=== PATIENT | male | born 1935 | race Caucasian/White ===

== ENCOUNTER → 2017-01-06 | Outpatient (CLI) | payer OTHER ==
[~2017-01-06] MED LIST: ASPI81CH49 OR; SIMV-8 OR
[2017-01-06 14:42] LABS: Basophils # (auto) 0 uL; Basophils % (auto) 0.6 % (0.0-2.0); Eosinophils # (auto) 0.1 uL; Eosinophils % (auto) 1.2 % (0.0-7.0); Hematocrit 43.8 % (41.0-53.0); Hemoglobin 13.7 g/dL (13.5-17.5); Lymphocytes # (auto) 1.8 uL; Lymphocytes % (auto) 24.6 % (10.0-50.0); Mean Corpuscular Hemoglobin 28.5 pg (28.0-32.0); Mean Corpuscular Hgb Conc. 31.3 g/dL (32.0-36.0); Mean Platelet Volume 7.5 fL (7.4-10.4); Monocytes # (auto) 0.5 uL; Monocytes % (auto) 6.6 % (0.0-12.0); Neutrophils # (auto) 4.9 uL; Platelet Count (auto) 309 10^3/uL (140-450); Red Cell Distribution Width 14.6 % (11.6-16.0); White Blood Cell 7.3 10^3/uL (4.4-10.8)
[2017-01-06 15:49] LABS: Albumin 3.9 g/dL (3.4-5.0); BUN/Creatinine Ratio 17.7; Bilirubin, Total 0.5 mg/dL (0.2-1.0); Calcium 9.5 mg/dL (8.5-10.1); Potassium 3.9 mmol/L (3.5-5.1); Total Protein 7.3 g/dL (6.4-8.2); Uric Acid 5.4 mg/dL (3.5-7.2)
== END | disposition home or self-care (01) ==
LOC: LAB 12:43
PROVIDERS: ATTEND Internal Medicine
DX: R58 Hemorrhage, not elsewhere classified (principal); N18.3 Chronic kidney disease, stage 3 (moderate)
CPT/HCPCS: 36415; 80053; 82607; 83970; 84402; 84403; 84550; 85025

== ENCOUNTER → 2017-08-13 | Outpatient (CLI) | payer OTHER ==
[2017-08-13 12:20] LABS: Urine Bilirubin Negative (Negative); Urine Blood Negative /uL (Negative); Urine Color Yellow (Yellow); Urine Glucose Normal (Normal); Urine Ketone Negative (Negative); Urine Nitrite Negative (Negative); Urine RBC <1 /hpf (0 - 3); Urine Urobilinogen Normal (Negative); Urine pH 6.5 (5.0-8.0)
[2017-08-13 12:32] LABS: Albumin 3.9 g/dL (3.4-5.0); BUN/Creatinine Ratio 13.2; Bilirubin, Total 0.6 mg/dL (0.2-1.0); Calcium 9.4 mg/dL (8.5-10.1); Potassium 4.4 mmol/L (3.5-5.1); Total Protein 7.3 g/dL (6.4-8.2)
== END | disposition home or self-care (01) ==
LOC: LAB 11:14
PROVIDERS: ATTEND Internal Medicine
DX: I10 Essential (primary) hypertension (principal); G62.9 Polyneuropathy, unspecified
CPT/HCPCS: 36415; 80053; 80061; 81001; 82043; 82607; 84153; 84403; 84439; 84443

== ENCOUNTER 2018-01-20 06:18 | Day surgery (SDC) | payer OTHER ==
[2018-01-07 10:41] LABS: Urine WBC None Seen /hpf (0 - 3)
[2018-01-07 10:57] LABS: Urine Bacteria NONE SEEN /hpf (None Seen); Urine Blood Negative /uL (Negative); Urine Specific Gravity 1.012 (1.001-1.035)
[2018-01-07 11:07] LABS: Basophils # (auto) 0.1 uL; Basophils % (auto) 0.7 % (0.0-2.0); Eosinophils # (auto) 0.1 uL; Hematocrit 42.2 % (41.0-53.0); Hemoglobin 14.2 g/dL (13.5-17.5); Lymphocytes % (auto) 27.2 % (10.0-50.0); Mean Corpuscular Hemoglobin 29.8 pg (28.0-32.0); Mean Corpuscular Hgb Conc. 33.7 g/dL (32.0-36.0); Mean Corpuscular Volume 88.5 fL (80.0-100.0); Monocytes # (auto) 0.5 uL; Monocytes % (auto) 7.3 % (0.0-12.0); Neutrophils # (auto) 4.5 uL; Neutrophils % (auto) 62.8 % (37.0-80.0); Platelet Count (auto) 209 10^3/uL (140-450); Red Blood Cells 4.77 10^6/uL (4.5-5.90); Red Cell Distribution Width 13.5 % (11.8-14.3); White Blood Cell 7.2 10^3/uL (4.4-10.8)
[2018-01-07 11:09] LABS: Albumin 3.7 g/dL (3.4-5.0); BUN/Creatinine Ratio 18.2; INR 0.98 (0.9-1.15); Potassium 4.1 mmol/L (3.5-5.1); Prothrombin Time 10.7 sec (9.37-12.3)
[2018-01-07 11:12] LABS: Bilirubin, Total 0.6 mg/dL (0.2-1.0); Total Protein 7.1 g/dL (6.4-8.2)
[~2018-01-20] VITALS: Ht 188 cm; Wt 86.2 kg
[~2018-01-20 06:18] MED LIST changes: +OMEP20CA74 PO; +TAM04C PO; +TEMA30CA PO
[2018-01-20] MEDS ORDERED: ceFAZolin 1GM/50ML 50 ML IV ONE (06:29)
[2018-01-20 07:29] LABS: Basophils # (auto) 0.1 uL; Basophils % (auto) 0.9 % (0.0-2.0); Eosinophils # (auto) 0.2 uL; Eosinophils % (auto) 3.2 % (0.0-7.0); Hematocrit 41.8 % (41.0-53.0); Lymphocytes # (auto) 1.5 uL; Mean Corpuscular Hgb Conc. 33.5 g/dL (32.0-36.0); Mean Corpuscular Volume 89.6 fL (80.0-100.0); Monocytes # (auto) 0.9 uL; Monocytes % (auto) 13.1 % (0.0-12.0); Neutrophils # (auto) 4.3 uL; Neutrophils % (auto) 60.8 % (37.0-80.0); Nucleated Red Blood Cells % 0.1 %; Platelet Count (auto) 199 10^3/uL (140-450); Red Blood Cells 4.67 10^6/uL (4.5-5.90); Red Cell Distribution Width 14.1 % (11.8-14.3)
[2018-01-20 07:39] LABS: BUN/Creatinine Ratio 15.8; Potassium 4.1 mmol/L (3.5-5.1)
[2018-01-20 07:43] LABS: INR 0.97 (0.9-1.15); Partial Thromboplastin Time 42.9 sec (22.64-33.71); Prothrombin Time 10.6 sec (9.37-12.3)
[2018-01-20] MEDS ORDERED: MIDAZOLAM HCL 1MG/1ML-2 ML VIAL ONE (08:00)
[2018-01-20] MEDS ORDERED: PROPOFOL 10 MG/ML 20 ML IV ONE (08:00)
[2018-01-20] MEDS ORDERED: fentaNYL CITRATE 100 MCG/2 ML VL ONE (08:00)
[2018-01-20] MEDS ORDERED: ONDANSETRON HCL 4 MG/2 ML VIAL ONE (08:00)
[2018-01-20] MEDS ORDERED: SODIUM CHLORIDE LOCK 10 ML ONE (08:00)
[2018-01-20] MEDS ORDERED: BUPIVACAINE 0.75% INJ 10ML MPV SDV IJ ONE (08:15)
[2018-01-20] MEDS ORDERED: methylPREDNISolone ACETATE 80 MG/ML VL ONE (08:16)
[2018-01-20] MEDS ORDERED: METOCLOPRAMIDE HCL 5MG/ml INJ 2ml VIAL IV ONE (08:30)
[2018-01-20] MEDS ORDERED: MORPHINE SULFATE 4 MG/ML SYR/VIAL IV ONE (10:00)
[2018-01-20 10:02] VITALS: BP 135/65
== END 2018-01-20 10:02 | disposition home or self-care (01) ==
LOC: SUR 06:18
PROVIDERS: ATTEND Podiatrist Foot & Ankle Surgery
DX: M72.2 Plantar fascial fibromatosis (principal); E66.9 Obesity, unspecified; Z90.49 Acquired absence of other specified parts of digestive tract; N18.3 Chronic kidney disease, stage 3 (moderate)
CPT/HCPCS: 28060; 36415; 80048; 80053; 81001; 85025; 85610; 85730; 88305; J0690; J2250; J2405; J2704; J3010; J3490; V2790

== ENCOUNTER → 2018-04-27 | Outpatient (CLI) | payer OTHER | END | disposition home or self-care (01) | LOC: LAB 10:00 | PROVIDERS: ATTEND Physician Assistant | DX: D23.9 Other benign neoplasm of skin, unspecified (principal) ==

== ENCOUNTER → 2018-05-04 | Outpatient (CLI) | payer OTHER ==
[2018-05-04 15:54] LABS: Albumin 3.6 g/dL (3.4-5.0); BUN/Creatinine Ratio 13.2; Bilirubin, Total 0.4 mg/dL (0.2-1.0); Calcium 8.8 mg/dL (8.5-10.1); Potassium 4.6 mmol/L (3.5-5.1); Total Protein 6.7 g/dL (6.4-8.2); Uric Acid 4.4 mg/dL (3.5-7.2)
== END | disposition home or self-care (01) ==
LOC: LAB 15:13
PROVIDERS: ATTEND Internal Medicine
DX: I12.9 Hypertensive chronic kidney disease with stage 1 through stage 4 chronic kidney disease, or unspecified chronic kidney disease (principal); N18.4 Chronic kidney disease, stage 4 (severe)
CPT/HCPCS: 36415; 80053; 84439; 84443; 84550

== ENCOUNTER → 2018-10-05 | Outpatient (CLI) | payer OTHER ==
[2018-10-05 11:19] LABS: Urine Bacteria NONE SEEN /hpf (None Seen); Urine Blood Negative /uL (Negative); Urine Specific Gravity 1.013 (1.001-1.035); Urine WBC <1 /hpf (0 - 3)
[2018-10-05 11:23] LABS: Basophils # (auto) 0.1 uL; Basophils % (auto) 1.1 % (0.0-2.0); Eosinophils # (auto) 0.1 uL; Eosinophils % (auto) 2.5 % (0.0-7.0); Hematocrit 42.4 % (41.0-53.0); Hemoglobin 13.8 g/dL (13.5-17.5); Lymphocytes # (auto) 1.5 uL; Lymphocytes % (auto) 28.6 % (10.0-50.0); Mean Corpuscular Hemoglobin 29.8 pg (28.0-32.0); Mean Corpuscular Hgb Conc. 32.6 g/dL (32.0-36.0); Mean Corpuscular Volume 91.3 fL (80.0-100.0); Monocytes # (auto) 0.3 uL; Neutrophils # (auto) 3.3 uL; Neutrophils % (auto) 61.8 % (37.0-80.0); Platelet Count (auto) 225 10^3/uL (140-450); Red Blood Cells 4.64 10^6/uL (4.5-5.90); Red Cell Distribution Width 14.5 % (11.8-14.3); White Blood Cell 5.3 10^3/uL (4.4-10.8)
[2018-10-05 11:52] LABS: Albumin 3.7 g/dL (3.4-5.0); BUN/Creatinine Ratio 11.5; Calcium 9.3 mg/dL (8.5-10.1); Potassium 4.4 mmol/L (3.5-5.1); Uric Acid 4.3 mg/dL (3.5-7.2)
[2018-10-05 11:58] LABS: Bilirubin, Total 0.5 mg/dL (0.2-1.0); Total Protein 7.1 g/dL (6.4-8.2)
[2018-10-05 12:04] LABS: Free T4 (Free Thyroxine) 0.99 ng/dL (0.89-1.76)
[2018-10-05 12:05] LABS: Prostate Specific Antigen 2.48 ng/mL (0.0-4.0)
[2018-10-06 07:06] LABS: Immunoglobulin G, Serum 799 mg/dL (700-1600)
[2018-10-07 10:17] LABS: Hepatitis B Surface Antigen Negative (Negative); Hepatitis C Antibody Negative (Negative)
== END | disposition home or self-care (01) ==
LOC: LAB 10:28
PROVIDERS: ATTEND Internal Medicine
DX: I12.9 Hypertensive chronic kidney disease with stage 1 through stage 4 chronic kidney disease, or unspecified chronic kidney disease (principal); N18.3 Chronic kidney disease, stage 3 (moderate); N40.0 Benign prostatic hyperplasia without lower urinary tract symptoms; G62.9 Polyneuropathy, unspecified
CPT/HCPCS: 36415; 80053; 80061; 81001; 82043; 82607; 82784; 83970; 84153; 84439; 84443; 84550; 85025; 85652; 86334; 86704; 86705; 86803; 87340

== ENCOUNTER → 2018-10-27 | Outpatient (CLI) | payer OTHER | END | disposition home or self-care (01) | LOC: LAB 15:24 | PROVIDERS: ATTEND Internal Medicine | DX: G60.9 Hereditary and idiopathic neuropathy, unspecified (principal); I10 Essential (primary) hypertension | CPT/HCPCS: 36415; 86706 ==

== ENCOUNTER → 2019-02-07 | Outpatient (CLI) | payer OTHER ==
[2019-02-07 16:12] LABS: Basophils # (auto) 0.1 uL; Basophils % (auto) 0.7 % (0.0-2.0); Eosinophils # (auto) 0.1 uL; Eosinophils % (auto) 1.1 % (0.0-7.0); Hematocrit 40.4 % (41.0-53.0); Hemoglobin 13.6 g/dL (13.5-17.5); Lymphocytes # (auto) 1.2 uL; Lymphocytes % (auto) 15.5 % (10.0-50.0); Mean Corpuscular Hemoglobin 30.9 pg (28.0-32.0); Mean Corpuscular Hgb Conc. 33.7 g/dL (32.0-36.0); Mean Corpuscular Volume 91.5 fL (80.0-100.0); Monocytes # (auto) 0.4 uL; Monocytes % (auto) 5.5 % (0.0-12.0); Neutrophils % (auto) 77.2 % (37.0-80.0); Nucleated Red Blood Cells % 0.1 %; Platelet Count (auto) 200 10^3/uL (140-450); Red Blood Cells 4.42 10^6/uL (4.5-5.90); Red Cell Distribution Width 13.8 % (11.8-14.3); White Blood Cell 7.7 10^3/uL (4.4-10.8)
[2019-02-07 16:20] LABS: Potassium 4.3 mmol/L (3.5-5.1)
[2019-02-07 16:35] LABS: Albumin 3.8 g/dL (3.4-5.0); BUN/Creatinine Ratio 17.6; Bilirubin, Total 0.4 mg/dL (0.2-1.0); Calcium 9.2 mg/dL (8.5-10.1)
== END | disposition home or self-care (01) ==
LOC: LAB 15:22
PROVIDERS: ATTEND Internal Medicine
DX: K21.9 Gastro-esophageal reflux disease without esophagitis (principal); I12.9 Hypertensive chronic kidney disease with stage 1 through stage 4 chronic kidney disease, or unspecified chronic kidney disease; N18.3 Chronic kidney disease, stage 3 (moderate)
CPT/HCPCS: 36415; 80053; 82150; 83690; 85025

== ENCOUNTER → 2019-04-05 | Outpatient (CLI) | payer OTHER ==
[2019-04-05 12:55] LABS: Albumin 3.8 g/dL (3.4-5.0); Bilirubin, Direct 0.2 mg/dL (0-0.2); Bilirubin, Total 0.7 mg/dL (0.2-1.0); Total Protein 7.1 g/dL (6.4-8.2)
== END | disposition home or self-care (01) ==
LOC: LAB 12:14
PROVIDERS: ATTEND Podiatrist
DX: K76.9 Liver disease, unspecified (principal)
CPT/HCPCS: 36415; 80076

== ENCOUNTER → 2019-05-19 | Outpatient (CLI) | payer OTHER ==
[2019-05-19 14:26] LABS: Albumin 3.8 g/dL (3.4-5.0); Bilirubin, Direct 0.2 mg/dL (0-0.2)
[2019-05-19 14:28] LABS: Bilirubin, Total 0.5 mg/dL (0.2-1.0); Total Protein 6.8 g/dL (6.4-8.2)
== END | disposition home or self-care (01) ==
LOC: LAB 13:47
PROVIDERS: ATTEND Podiatrist
DX: D35.1 Benign neoplasm of parathyroid gland (principal)
CPT/HCPCS: 36415; 80076

== ENCOUNTER → 2019-08-03 | Outpatient (CLI) | payer OTHER ==
[2019-08-03 14:37] LABS: Calcium 9.4 mg/dL (8.5-10.1); Potassium 4.7 mmol/L (3.5-5.1)
[2019-08-03 14:40] LABS: Albumin 4.2 g/dL (3.4-5.0); BUN/Creatinine Ratio 12.4
[2019-08-03 14:42] LABS: Bilirubin, Total 0.6 mg/dL (0.2-1.0); Total Protein 7.5 g/dL (6.4-8.2)
[2019-08-03 15:35] LABS: Urine Bacteria NONE SEEN /hpf (None Seen); Urine Blood Negative /uL (Negative); Urine Hyaline Cast FEW /lpf (0 - 2); Urine Mucus FEW (None Seen); Urine Specific Gravity 1.013 (1.001-1.035); Urine WBC 1 /hpf (0 - 3)
[2019-08-03 17:29] LABS: Basophils # (auto) 0.1 uL; Basophils % (auto) 0.8 % (0.0-2.0); Eosinophils # (auto) 0.1 uL; Eosinophils % (auto) 1.5 % (0.0-7.0); Hematocrit 48.9 % (41.0-53.0); Hemoglobin 16.3 g/dL (13.5-17.5); Lymphocytes # (auto) 2.2 uL; Lymphocytes % (auto) 26.3 % (10.0-50.0); Mean Corpuscular Hemoglobin 30.2 pg (28.0-32.0); Mean Corpuscular Hgb Conc. 33.4 g/dL (32.0-36.0); Mean Corpuscular Volume 90.5 fL (80.0-100.0); Monocytes # (auto) 0.4 uL; Monocytes % (auto) 5.2 % (0.0-12.0); Neutrophils # (auto) 5.6 uL; Neutrophils % (auto) 66.2 % (37.0-80.0); Nucleated Red Blood Cells % 0.1 %; Platelet Count (auto) 213 10^3/uL (140-450); Red Blood Cells 5.41 10^6/uL (4.5-5.90); Red Cell Distribution Width 13.9 % (11.8-14.3); White Blood Cell 8.5 10^3/uL (4.4-10.8)
== END | disposition home or self-care (01) ==
LOC: LAB 13:38
PROVIDERS: ATTEND Internal Medicine
DX: N40.0 Benign prostatic hyperplasia without lower urinary tract symptoms (principal); I10 Essential (primary) hypertension; I48.0 Paroxysmal atrial fibrillation
CPT/HCPCS: 36415; 80053; 80061; 81001; 82043; 84439; 84443; 85025; 85652

== ENCOUNTER 2019-10-13 15:06 | Inpatient (IN) | payer OTHER ==
[~2019-10-13] VITALS: Ht 188 cm; Wt 86.8 kg
[2019-10-13] MEDS ORDERED: SODIUM CHLORIDE 0.9% 500 ML IV ONE (15:22)
[2019-10-13] MEDS ORDERED: ADENOSINE 6 MG/2 ML INJ IV ONE (15:30)
[2019-10-13] MEDS ORDERED: METOPROLOL TARTRATE 1MG/1ML-5ML VIAL IV ONE ×2 (16:00→16:01)
[2019-10-13] MEDS ORDERED: MORPHINE SULFATE 4 MG/ML SYR/VIAL IV PRN (16:15)
[2019-10-13] MEDS ORDERED: ONDANSETRON HCL 4 MG/2 ML VIAL IV PRN (16:15)
[2019-10-13] MEDS ORDERED: traMADol HCL 50 MG TAB PO PRN (16:15)
[2019-10-13] MEDS ORDERED: NITROGLYCERIN 0.4 MG SL TAB SL PRN (16:15)
[2019-10-13] MEDS ORDERED: ACETAMINOPHEN 500 MG TAB PO PRN (16:15)
[2019-10-13] MEDS ORDERED: MORPHINE SULF INJ 2 MG/ML SYRINGE 1ML IV PRN (16:15)
[2019-10-13 16:16] LABS: Alanine Aminotransferase 19 U/L (16-61); Albumin 3.6 g/dL (3.4-5.0); Anion Gap 7 (5-15); Aspartate Aminotransferase 22 U/L (15-37); BUN/Creatinine Ratio 14.9; Blood Urea Nitrogen 25 mg/dL (7-18); Calcium 8.5 mg/dL (8.5-10.1); Carbon Dioxide 22 mmol/L (21-32); Chloride 108 mmol/L (98-107); GFR African American 50 mL/min; GFR Non-African American 42 mL/min; Glucose 114 mg/dL (74-106); Magnesium 2.3 mg/dL (1.6-2.6); Potassium 4.2 mmol/L (3.5-5.1); Sodium 137 mmol/L (136-145)
[2019-10-13 16:21] LABS: Alkaline Phosphatase 55 U/L (45-117); Bilirubin, Total 0.6 mg/dL (0.2-1.0); Total Protein 6.8 g/dL (6.4-8.2)
[2019-10-13] MEDS ORDERED: METOPROLOL SUCCINATE XL 50 MG TAB PO ONE ×2 (16:27→16:30)
[2019-10-13] MEDS: SODIUM CHLORIDE 0.9% 1,000 ML IV SCH (16:33)
[2019-10-13 16:37] LABS: Basophils # (auto) 0.1 uL; Basophils % (auto) 0.7 % (0.0-2.0); Eosinophils # (auto) 0.1 uL; Eosinophils % (auto) 1.3 % (0.0-7.0); Hematocrit 41.4 % (41.0-53.0); Lymphocytes # (auto) 1.6 uL; Lymphocytes % (auto) 23.4 % (10.0-50.0); Mean Corpuscular Hemoglobin 30.6 pg (28.0-32.0); Mean Corpuscular Hgb Conc. 33.7 g/dL (32.0-36.0); Mean Corpuscular Volume 90.7 fL (80.0-100.0); Monocytes # (auto) 0.6 uL; Monocytes % (auto) 8.5 % (0.0-12.0); Neutrophils # (auto) 4.5 uL; Neutrophils % (auto) 66.1 % (37.0-80.0); Nucleated Red Blood Cells % 0.2 %; Platelet Count (auto) 175 10^3/uL (140-450); Red Blood Cells 4.57 10^6/uL (4.5-5.90); Red Cell Distribution Width 13.7 % (11.8-14.3); White Blood Cell 6.9 10^3/uL (4.4-10.8)
[2019-10-13] MEDS: APIXABAN 2.5 MG TAB PO SCH (21:58)
[2019-10-13] MEDS ORDERED: TEMAZEPAM 15 MG CAP PO SCH (22:00)
[2019-10-13] MEDS: METOPROLOL TARTRATE 25 MG TAB PO SCH (22:00)
[2019-10-14] VITALS (8 sets, daily range): BP systolic 97–143; BP diastolic 49–75
--- NOTE | 2019-10-14 00:10 | NUR ---
Telemetry admit from ER LALA SALGADO admitted to Telemetry unit after SBAR received. Patient oriented to Jade Rose, primary RN, unit, room, bed, and unit policies regarding patient care and visiting hours. Patient now on continuous telemetry monitoring, tele box # 69 and telemetry reading on arrival to unit is 70. Patient placed on bedside oxygen, weighed by bedscale and encouraged to call if they need something. All questions and concerns addressed, patient verbalized understanding. Note:
[2019-10-14] MEDS: SODIUM CHLORIDE 0.9% 1,000 ML IV SCH (05:42)
[2019-10-14] MEDS ORDERED: traMADol HCL 50 MG TAB PO PRN (07:15)
--- NOTE | 2019-10-14 08:00 | NUR ---
Opening Shift Note Assumed care of patient AOx4. No S/S of distress/SOB or pain noted/reported. Bed in low position, locked, call light within reach. Patient instructed on POC and to call for assist PRN, will continue to monitor for changes Q1hr and PRN. Signed: 10/14/19 at 1600 by GLORIA BYRNE SN <Co-Signature Required> Co-Signed: 10/14/19 at 1600 by Bobbi Dangelo RN
[2019-10-14] MEDS ORDERED: ADENOSINE 73 MG in GIVE UN-DILUTED 0 ML IV STA (08:20)
[2019-10-14] MEDS ORDERED: ASPirin 81 mg TAB PO SCH (10:00)
[2019-10-14] MEDS ORDERED: PANTOPRAZOLE 40 MG TAB PO SCH (10:00)
[2019-10-14] MEDS ORDERED: ATORVASTATIN 20 MG TAB PO SCH (10:00)
[2019-10-14] MEDS: METOPROLOL TARTRATE 25 MG TAB PO SCH (10:00)
[2019-10-14] MEDS ORDERED: INFLUENZA QUAD 2019-2020 0.5ml SYRG IM ONE ×2 (10:00→19:35)
[2019-10-14] MEDS: APIXABAN 2.5 MG TAB PO SCH (12:14)
[2019-10-14] MEDS ORDERED: LIDOCAINE HCL 100 MG/5ML (2%) SYRG INJ IV ONE (12:54)
[2019-10-14 15:44] LABS: BUN/Creatinine Ratio 13.4; Calcium 8.7 mg/dL (8.5-10.1); Potassium 4.7 mmol/L (3.5-5.1)
[2019-10-14] MEDS ORDERED: METO25TA36 PO (17:33)
[2019-10-14] MEDS ORDERED: TAMSULOSIN HYDROCHLORIDE 0.4 MG CAP PO SCH (18:00)
--- NOTE | 2019-10-14 18:39 | NUR ---
PATIENT IS REQUESTING INFLUENZA VACCINE. CALLED PHARMACY TO SEND IT UP TO FLOOR VIA BULLET SYSTEM. WAITING FOR VACCINE.
--- NOTE | 2019-10-14 19:30 | NUR ---
Opening Shift Note Report received from day RN that patient is discharged, just waiting for flu vaccine. Assumed care of patient, awake and alert. No S/S of distress/SOB or pain. Instructed on POC and to call for assist PRN, will continue to monitor for changes Q1hr and PRN.
--- NOTE | 2019-10-14 19:35 | NUR ---
Called pharmacy to follow-up for flu vaccine. Per pharmacist, it will be refreshed so it can be pulled from the pyxis. Communication relayed to patient. Care continued.
--- NOTE | 2019-10-14 19:55 | NUR ---
Discharge instructions given as ordered by claudio Boo RN. Encourage to follow up with PMD as instructed. All questions and concerns addressed. Patient verbalized understanding. Medication reconciliation form completed and copy given to patient. No home medications held in Pharmacy, influenza vaccine given. IV removed with catheter intact, pressure dressing applied, by claudio Boo RN, patient voiding freely. Telemetry unit returned to ICU by claudio Boo RN. Patient taken to vehicle via wheelchair with all personal belongings, accompanied by staff. No distress noted at time of departure.
[2019-10-14] MEDS ORDERED: TEMAZEPAM 15 MG CAP PO SCH (22:00)
== END 2019-10-14 19:55 | disposition home or self-care (01) | DRG 308 ==
LOC: ER 15:10 → TELE 15:11 → TELE-WESTW 23:39
PROVIDERS: ADMIT Internal Medicine; ATTEND Internal Medicine
DX: I48.0 Paroxysmal atrial fibrillation (principal); I50.33 Acute on chronic diastolic (congestive) heart failure; G62.9 Polyneuropathy, unspecified; I47.1 Supraventricular tachycardia; H26.9 Unspecified cataract; I48.92 Unspecified atrial flutter; E78.5 Hyperlipidemia, unspecified; I11.0 Hypertensive heart disease with heart failure; Z86.73 Personal history of transient ischemic attack (TIA), and cerebral infarction without residual deficits; Z87.891 Personal history of nicotine dependence
CPT/HCPCS: 36415; 71045; 78452; 80048; 80053; 82550; 83735; 83880; 84443; 84484; 85025; 85379; 93005; 93017; 93306; 99291; G0378; J0153

== ENCOUNTER → 2019-11-10 | Outpatient (CLI) | payer OTHER ==
[~2019-11-10] MED LIST changes: -ASPI81CH49 OR; +METO25TA36 PO; -OMEP20CA74 PO
[2019-11-10 14:35] LABS: Ferritin 92.5 ng/mL (10-322)
[2019-11-10 14:36] LABS: Folate (Folic Acid) 16.64 ng/mL (5.38-24)
== END | disposition home or self-care (01) ==
LOC: LAB 13:05
PROVIDERS: ATTEND Psychiatry & Neurology Neurology
DX: E61.1 Iron deficiency (principal); G62.9 Polyneuropathy, unspecified
CPT/HCPCS: 36415; 82728; 82746; 82951; 83540; 83550; 84155; 84165

== ENCOUNTER → 2020-02-06 | Outpatient (CLI) | payer OTHER ==
[2020-02-06 16:08] LABS: Calcium 9.3 mg/dL (8.5-10.1); Potassium 4.7 mmol/L (3.5-5.1)
[2020-02-06 16:10] LABS: BUN/Creatinine Ratio 12.7
== END | disposition home or self-care (01) ==
LOC: LAB 15:33
PROVIDERS: ATTEND Internal Medicine
DX: I48.0 Paroxysmal atrial fibrillation (principal); I10 Essential (primary) hypertension
CPT/HCPCS: 36415; 80048

== ENCOUNTER → 2020-05-22 | Outpatient (CLI) | payer OTHER ==
[2020-05-22 13:13] LABS: Basophils # (auto) 0.1 10 ^3/uL (0-0.2); Basophils % (auto) 1.1 % (0.0-2.0); Eosinophils # (auto) 0.1 10 ^3/uL (0-0.8); Eosinophils % (auto) 1.7 % (0.0-7.0); Hematocrit 51.5 % (41.0-53.0); Lymphocytes # (auto) 1.8 10 ^3/uL (0.4-5.4); Lymphocytes % (auto) 21.1 % (10.0-50.0); Mean Corpuscular Hemoglobin 29.9 pg (28.0-32.0); Mean Corpuscular Hgb Conc. 33.1 g/dL (32.0-36.0); Mean Corpuscular Volume 90.5 fL (80.0-100.0); Monocytes # (auto) 0.6 10 ^3/uL (0-1.3); Monocytes % (auto) 7.7 % (0.0-12.0); Neutrophils # (auto) 5.7 10 ^3/uL (1.6-8.6); Neutrophils % (auto) 68.4 % (37.0-80.0); Nucleated Red Blood Cells % 0.2 %; Platelet Count (auto) 213 10^3/uL (140-450); Red Blood Cells 5.68 10^6/uL (4.5-5.90); Red Cell Distribution Width 14.2 % (11.8-14.3); White Blood Cell 8.4 10^3/uL (4.4-10.8)
[2020-05-22 13:40] LABS: Albumin 4.3 g/dL (3.4-5.0); Calcium 10.1 mg/dL (8.5-10.1); Magnesium 2.7 mg/dL (1.6-2.6); Potassium 4.7 mmol/L (3.5-5.1)
[2020-05-22 13:44] LABS: BUN/Creatinine Ratio 19.9; Bilirubin, Total 0.6 mg/dL (0.2-1.0); Total Protein 8.1 g/dL (6.4-8.2)
== END | disposition home or self-care (01) ==
LOC: LAB 12:33
PROVIDERS: ATTEND Internal Medicine
DX: I48.91 Unspecified atrial fibrillation (principal)
CPT/HCPCS: 36415; 80053; 83735; 83880; 85025

== ENCOUNTER → 2020-07-23 | Outpatient (CLI) | payer OTHER | END | disposition home or self-care (01) | LOC: Rad HDHVI 15:12 | PROVIDERS: ATTEND Internal Medicine Cardiovascular Disease | DX: R00.2 Palpitations (principal); I10 Essential (primary) hypertension; R07.89 Other chest pain | CPT/HCPCS: 93306 ==

== ENCOUNTER → 2020-07-31 | Outpatient (CLI) | payer OTHER ==
[2020-07-31 16:36] LABS: Basophils # (auto) 0.1 10 ^3/uL (0-0.2); Basophils % (auto) 1.1 % (0.0-2.0); Eosinophils # (auto) 0.2 10 ^3/uL (0-0.8); Eosinophils % (auto) 3.4 % (0.0-7.0); Hematocrit 43.4 % (41.0-53.0); Hemoglobin 14.1 g/dL (13.5-17.5); Lymphocytes # (auto) 1.6 10 ^3/uL (0.4-5.4); Lymphocytes % (auto) 23.2 % (10.0-50.0); Mean Corpuscular Hemoglobin 29.2 pg (28.0-32.0); Mean Corpuscular Hgb Conc. 32.5 g/dL (32.0-36.0); Mean Corpuscular Volume 89.7 fL (80.0-100.0); Monocytes # (auto) 0.6 10 ^3/uL (0-1.3); Monocytes % (auto) 8.7 % (0.0-12.0); Neutrophils # (auto) 4.5 10 ^3/uL (1.6-8.6); Neutrophils % (auto) 63.6 % (37.0-80.0); Platelet Count (auto) 156 10^3/uL (140-450); Red Blood Cells 4.84 10^6/uL (4.5-5.90); Red Cell Distribution Width 13.9 % (11.8-14.3)
[2020-07-31 16:54] LABS: Albumin 3.5 g/dL (3.4-5.0); BUN/Creatinine Ratio 18.5; Potassium 4.7 mmol/L (3.5-5.1)
[2020-07-31 16:57] LABS: Bilirubin, Total 0.6 mg/dL (0.2-1.0)
== END | disposition home or self-care (01) ==
LOC: LAB 16:22
PROVIDERS: ATTEND Internal Medicine
DX: I10 Essential (primary) hypertension (principal); I50.32 Chronic diastolic (congestive) heart failure
CPT/HCPCS: 36415; 80053; 83880; 84439; 84443; 85025; 85379; 85652

== ENCOUNTER → 2020-08-30 | Outpatient (CLI) | payer OTHER ==
[~2020-08-30] VITALS: Ht 188 cm; Wt 93.0 kg
[~2020-08-30] MED LIST changes: +ADENOSINE 78 MG in GIVE UN-DILUTED 0 ML IV ONE; +ADENOSINE 90 MG/30 ML INJ IV ONE
== END | disposition home or self-care (01) ==
LOC: Rad HDHVI 13:02
PROVIDERS: ATTEND Internal Medicine Cardiovascular Disease
DX: I10 Essential (primary) hypertension (principal); E78.00 Pure hypercholesterolemia, unspecified; I48.0 Paroxysmal atrial fibrillation; R06.02 Shortness of breath; I63.9 Cerebral infarction, unspecified; I49.5 Sick sinus syndrome; R00.2 Palpitations; Z82.49 Family history of ischemic heart disease and other diseases of the circulatory system
CPT/HCPCS: 78452; 93005; 96374; 96375; A9500; J0153

== ENCOUNTER → 2020-10-15 | Outpatient (CLI) | payer OTHER ==
[~2020-10-15] MED LIST changes: -ADENOSINE 78 MG in GIVE UN-DILUTED 0 ML IV ONE; -ADENOSINE 90 MG/30 ML INJ IV ONE; +AMIT10TA6 PO; +LORA0.5T20 PO; +OMEP20TA PO; +PRAM0.12 PO; +SIMV-8 PO; +WARF4TAB33 PO
[2020-10-15 08:42] VITALS: BP 136/53
--- NOTE | 2020-10-15 08:42 | NUR ---
PT. TO CLINIC AFTER PRE OP LABS AND CXR FOR EKG AND EDUCATION. PT. ASYMPTOMATIC WITH LOW PULSE BUT EKG SHOWS AFIB WITH CONTROLLED VENT. RESPONSE AT 84.
--- NOTE | 2020-10-15 09:02 | NUR ---
Pre-Op Discharge Summary: See e-MAR for any medications given for this visit. Pre-op orders received and carried out per MD of EKG, LABS and chest xrays. Patient given a copy of EKG with instructions to go to [facility] out patient for further follow up care.
[2020-10-15 09:03] VITALS: BP 132/60
[2020-10-15 12:35] LABS: Basophils # (auto) 0.1 10 ^3/uL (0-0.2); Eosinophils # (auto) 0.1 10 ^3/uL (0-0.8); Eosinophils % (auto) 1.7 % (0.0-7.0); Hematocrit 46.9 % (41.0-53.0); Hemoglobin 16.1 g/dL (13.5-17.5); Lymphocytes # (auto) 1.7 10 ^3/uL (0.4-5.4); Lymphocytes % (auto) 20.5 % (10.0-50.0); Mean Corpuscular Hemoglobin 30.4 pg (28.0-32.0); Mean Corpuscular Hgb Conc. 34.3 g/dL (32.0-36.0); Mean Corpuscular Volume 88.6 fL (80.0-100.0); Monocytes # (auto) 0.5 10 ^3/uL (0-1.3); Monocytes % (auto) 5.8 % (0.0-12.0); Neutrophils # (auto) 5.9 10 ^3/uL (1.6-8.6); Nucleated Red Blood Cells % 0.6 %; Platelet Count (auto) 294 10^3/uL (140-450); Red Blood Cells 5.29 10^6/uL (4.5-5.90); Red Cell Distribution Width 14.1 % (11.8-14.3); White Blood Cell 8.3 10^3/uL (4.4-10.8)
[2020-10-15 12:45] LABS: Potassium 4.6 mmol/L (3.5-5.1)
[2020-10-15 12:50] LABS: INR 1.23 (0.9-1.15); Partial Thromboplastin Time 43.7 sec (23.0-31.2)
[2020-10-15 12:52] LABS: BUN/Creatinine Ratio 19.5
== END | disposition home or self-care (01) ==
LOC: Rad HDHVI 08:19
PROVIDERS: ATTEND Internal Medicine Cardiovascular Disease
DX: Z01.812 Encounter for preprocedural laboratory examination (principal); I70.0 Atherosclerosis of aorta; I35.8 Other nonrheumatic aortic valve disorders; M46.04 Spinal enthesopathy, thoracic region
CPT/HCPCS: 36415; 71046; 80048; 85025; 85610; 85730; 93005; G0463

== ENCOUNTER 2020-10-19 14:00 | Day surgery (SDC) | payer OTHER ==
[~2020-10-19] VITALS: Ht 188 cm; Wt 93.0 kg
[~2020-10-19 14:00] MED LIST changes: -SIMV-8 OR; -TEMA30CA PO
[2020-10-20] MEDS ORDERED: IOHEXOL 350 MG/ML 100ML IJ ONE (10:49)
[2020-10-20] MEDS ORDERED: LIDOCAINE 2%HCL (LOCAL ANESTH.) INJ 20ML MDV ONE ×2 (10:49→14:08)
[2020-10-20] MEDS ORDERED: ANGIOMAX 250 MG VIAL IV ONE (11:13)
[2020-10-20] MEDS ORDERED: MIDAZOLAM HCL 1MG/1ML-2 ML VIAL ONE (11:14)
[2020-10-20] MEDS ORDERED: SODIUM CHL 0.9% 50 ML ONE (11:14)
[2020-10-20] MEDS ORDERED: fentaNYL CITRATE 100 MCG/2 ML VL ONE (11:14)
[2020-10-20] MEDS ORDERED: TICAGRELOR 90 MG TAB ONE (13:42)
[2020-10-20] MEDS ORDERED: VANCOMYCIN 1GM/250ML 250 ML IV ONE (14:08)
[2020-10-20] MEDS ORDERED: VANCOMYCIN HCL 1000 MG VL ONE (14:08)
== END 2020-10-20 17:00 | disposition home or self-care (01) ==
LOC: CATH 14:00
PROVIDERS: ATTEND Internal Medicine Cardiovascular Disease
DX: Z45.010 Encounter for checking and testing of cardiac pacemaker pulse generator [battery] (principal); I25.10 Atherosclerotic heart disease of native coronary artery without angina pectoris; J43.9 Emphysema, unspecified; R00.2 Palpitations; E78.5 Hyperlipidemia, unspecified; F17.210 Nicotine dependence, cigarettes, uncomplicated; I11.0 Hypertensive heart disease with heart failure; Z98.890 Other specified postprocedural states; Z79.899 Other long term (current) drug therapy; Z20.828 Contact with and (suspected) exposure to other viral communicable diseases
CPT/HCPCS: 33208; 93458; C1760; C1769; C1785; C1874; C1887; C1892; C1894; C1898; C9600; J0583; J1644; J2250; J3010; J3370; J7030; Q9967; U0003; 99152; 99153

== ENCOUNTER → 2021-01-22 | Outpatient (CLI) | payer OTHER | END | disposition home or self-care (01) | LOC: Rad HDHVI 09:59 | PROVIDERS: ATTEND Internal Medicine Cardiovascular Disease | DX: I51.7 Cardiomegaly (principal); I49.5 Sick sinus syndrome | CPT/HCPCS: 93306 ==

== ENCOUNTER → 2021-02-05 | Outpatient (CLI) | payer OTHER ==
[2021-02-05 10:39] LABS: Urine Bacteria NONE SEEN /hpf (None Seen); Urine Blood Negative /uL (Negative); Urine Specific Gravity 1.016 (1.001-1.035); Urine WBC 1 /hpf (0 - 3)
[2021-02-05 11:03] LABS: Albumin 3.6 g/dL (3.4-5.0); Calcium 9.4 mg/dL (8.5-10.1)
[2021-02-05 11:08] LABS: BUN/Creatinine Ratio 15.4; Bilirubin, Total 0.4 mg/dL (0.2-1.0); Total Protein 7.3 g/dL (6.4-8.2); Uric Acid 5.6 mg/dL (3.5-7.2)
[2021-02-05 11:19] LABS: Free T4 (Free Thyroxine) 0.97 ng/dL (0.89-1.76)
[2021-02-05 11:20] LABS: Prostate Specific Antigen 1.82 ng/mL (0.0-4.0)
== END | disposition home or self-care (01) ==
LOC: LAB 10:05
PROVIDERS: ATTEND Internal Medicine
DX: I10 Essential (primary) hypertension (principal); I48.91 Unspecified atrial fibrillation; N40.0 Benign prostatic hyperplasia without lower urinary tract symptoms; G62.9 Polyneuropathy, unspecified
CPT/HCPCS: 36415; 80053; 80061; 81001; 82607; 83970; 84153; 84439; 84443; 84550

== ENCOUNTER → 2021-03-05 | Outpatient (CLI) | payer OTHER ==
[~2021-03-05] VITALS: Ht 188 cm; Wt 86.2 kg
[~2021-03-05] MED LIST changes: +ADENOSINE 72 MG in GIVE UN-DILUTED 0 ML IV ONE; +ADENOSINE 90 MG/30 ML INJ IV ONE
== END | disposition home or self-care (01) ==
LOC: Rad HDHVI 13:53
PROVIDERS: ATTEND Internal Medicine Cardiovascular Disease
DX: I11.0 Hypertensive heart disease with heart failure (principal); I50.43 Acute on chronic combined systolic (congestive) and diastolic (congestive) heart failure; I49.5 Sick sinus syndrome; E78.5 Hyperlipidemia, unspecified; R06.02 Shortness of breath; Z95.0 Presence of cardiac pacemaker
CPT/HCPCS: 78452; 93005; 96374; 96375; A9500; J0153

== ENCOUNTER → 2021-04-23 | Outpatient (CLI) | payer OTHER ==
[~2021-04-23] MED LIST changes: -ADENOSINE 72 MG in GIVE UN-DILUTED 0 ML IV ONE; -ADENOSINE 90 MG/30 ML INJ IV ONE; +DIGO0.12 PO; +GABA100C9 PO; +METO-289 PO; +POTA10TA51 PO
[2021-04-23 10:18] VITALS: BP 119/57
[2021-04-23 10:31] VITALS: BP 109/55
[2021-04-23 11:43] LABS: Basophils # (auto) 0.1 10 ^3/uL (0-0.2); Eosinophils # (auto) 0.2 10 ^3/uL (0-0.8); Eosinophils % (auto) 2.2 % (0.0-7.0); Hematocrit 44.3 % (41.0-53.0); Hemoglobin 15.3 g/dL (13.5-17.5); Lymphocytes # (auto) 1.5 10 ^3/uL (0.4-5.4); Lymphocytes % (auto) 21.7 % (10.0-50.0); Mean Corpuscular Hgb Conc. 34.6 g/dL (32.0-36.0); Mean Corpuscular Volume 89.6 fL (80.0-100.0); Monocytes # (auto) 0.5 10 ^3/uL (0-1.3); Neutrophils # (auto) 4.6 10 ^3/uL (1.6-8.6); Neutrophils % (auto) 67.1 % (37.0-80.0); Nucleated Red Blood Cells % 0.1 %; Platelet Count (auto) 206 10^3/uL (140-450); Red Blood Cells 4.94 10^6/uL (4.5-5.90); Red Cell Distribution Width 14.4 % (11.8-14.3); White Blood Cell 6.9 10^3/uL (4.4-10.8)
[2021-04-23 11:51] LABS: Calcium 9.3 mg/dL (8.5-10.1); Potassium 4.3 mmol/L (3.5-5.1)
[2021-04-23 11:54] LABS: BUN/Creatinine Ratio 19.5
[2021-04-23 11:55] LABS: INR 1.16 (0.9-1.15)
== END | disposition home or self-care (01) ==
LOC: Rad HDHVI 09:58
PROVIDERS: ATTEND Internal Medicine Cardiovascular Disease
DX: Z01.812 Encounter for preprocedural laboratory examination (principal); I70.0 Atherosclerosis of aorta; J92.9 Pleural plaque without asbestos; R94.31 Abnormal electrocardiogram [ECG] [EKG]; I11.0 Hypertensive heart disease with heart failure; I50.9 Heart failure, unspecified; I48.91 Unspecified atrial fibrillation; I49.5 Sick sinus syndrome; R06.02 Shortness of breath
CPT/HCPCS: 36415; 71046; 80048; 85025; 85610; 85730; 93005; G0463

== ENCOUNTER 2021-04-25 08:49 | Day surgery (SDC) | payer OTHER ==
[~2021-04-25] VITALS: Ht 188 cm; Wt 86.2 kg
[~2021-04-25 08:49] MED LIST changes: -METO25TA36 PO
[2021-04-25] MEDS ORDERED: LIDOCAINE 2%HCL (LOCAL ANESTH.) INJ 20ML MDV ONE (11:04)
[2021-04-25] MEDS ORDERED: IOHEXOL 350 MG/ML 100ML IJ ONE (11:04)
[2021-04-25] MEDS ORDERED: fentaNYL CITRATE 100 MCG/2 ML VL ONE (11:05)
[2021-04-25] MEDS ORDERED: ANGIOMAX 250 MG VIAL IV ONE (11:05)
[2021-04-25] MEDS ORDERED: SODIUM CHL 0.9% 50 ML ONE (11:06)
[2021-04-25] MEDS ORDERED: MIDAZOLAM HCL 1MG/1ML-2 ML VIAL ONE (11:06)
[2021-04-25] MEDS ORDERED: CLOPIDOGREL 300 MG TAB ONE (11:45)
== END 2021-04-25 14:40 | disposition home or self-care (01) ==
LOC: CATH 08:49
PROVIDERS: ATTEND Internal Medicine Cardiovascular Disease
DX: R94.39 Abnormal result of other cardiovascular function study (principal); I25.10 Atherosclerotic heart disease of native coronary artery without angina pectoris; E78.5 Hyperlipidemia, unspecified; I73.9 Peripheral vascular disease, unspecified; N28.9 Disorder of kidney and ureter, unspecified; Z20.822 Contact with and (suspected) exposure to COVID-19; Z98.890 Other specified postprocedural states; Z79.899 Other long term (current) drug therapy; Z87.891 Personal history of nicotine dependence
CPT/HCPCS: 93458; C1725; C1760; C1769; C1887; C1894; C9600; J0583; J1644; J2250; J3010; Q9967; U0003; 99152; 99153

== ENCOUNTER → 2021-08-15 | Outpatient (CLI) | payer OTHER | END | disposition home or self-care (01) | LOC: XY 09:17 | PROVIDERS: ATTEND Podiatrist | DX: I70.203 Unspecified atherosclerosis of native arteries of extremities, bilateral legs (principal); I77.9 Disorder of arteries and arterioles, unspecified | CPT/HCPCS: 93925 ==

== ENCOUNTER 2021-10-02 12:31 | Inpatient (IN) | payer OTHER ==
[~2021-10-02] VITALS: Ht 188 cm; Wt 83.7 kg
[~2021-10-02 12:31] MED LIST changes: -AMIT10TA6 PO; +AMIT1TAB34 PO
[2021-10-02 14:08] LABS: Basophils # (auto) 0 10 ^3/uL (0-0.2); Basophils % (auto) 0.3 % (0.0-2.0); Eosinophils # (auto) 0 10 ^3/uL (0-0.8); Hematocrit 41.7 % (41.0-53.0); Hemoglobin 14.2 g/dL (13.5-17.5); Lymphocytes # (auto) 0.6 10 ^3/uL (0.4-5.4); Lymphocytes % (auto) 12.6 % (10.0-50.0); Mean Corpuscular Hemoglobin 29.8 pg (28.0-32.0); Mean Corpuscular Volume 87.6 fL (80.0-100.0); Monocytes # (auto) 0.4 10 ^3/uL (0-1.3); Neutrophils # (auto) 3.6 10 ^3/uL (1.6-8.6); Neutrophils % (auto) 78.1 % (37.0-80.0); Red Blood Cells 4.76 10^6/uL (4.5-5.90); Red Cell Distribution Width 14.4 % (11.8-14.3); White Blood Cell 4.6 10^3/uL (4.4-10.8)
[2021-10-02 14:27] LABS: Calcium 8.1 mg/dL (8.5-10.1); Potassium 4.4 mmol/L (3.5-5.1)
[2021-10-02 14:33] LABS: Bilirubin, Total 0.4 mg/dL (0.2-1.0); Total Protein 6.6 g/dL (6.4-8.2)
[2021-10-02] MEDS ORDERED: AZITHROMYCIN 250 MG TAB PO ONE (15:45)
[2021-10-02] MEDS ORDERED: cefTRIAXone 1GM/50ML D5W 50 ML IV ONE (15:45)
[2021-10-02] MEDS ORDERED: MORPHINE SULFATE INJECTION 2 MG/ML SYRG IV PRN ×3 (16:00→19:00)
[2021-10-02] MEDS ORDERED: ENOXAPARIN SOD 40 MG/0.4 ML SYRINGE SC ONE (16:00)
[2021-10-02] MEDS ORDERED: NITROGLYCERIN 0.4 MG SL TAB SL PRN ×2 (16:00→19:00)
[2021-10-02] MEDS ORDERED: DOXYCYCLINE 100MG/250ML 250 ML IV ONE (18:45)
[2021-10-02] MEDS ORDERED: FAMOTIDINE (10MG/ML) 2ML VL IV ONE (18:45)
[2021-10-02] MEDS ORDERED: DOCUSATE SOD 100 MG CAP PO PRN (19:00)
[2021-10-02] MEDS ORDERED: ALUM & MAG HYDROX-SIMETH LIQ(MAALOX) 30 ML PO PRN (19:00)
[2021-10-02] MEDS ORDERED: ONDANSETRON HCL 4 MG/2 ML VIAL IV PRN (19:00)
[2021-10-02] MEDS ORDERED: HYDROcodone-ACET 5/325MG TAB PO PRN (19:00)
[2021-10-02] MEDS ORDERED: LORazepam 0.5 MG TAB PO PRN (19:00)
[2021-10-02 20:50] LABS: Cholesterol 149 mg/dL (< 200); HDL Cholesterol 40 mg/dL (40-59); LDL Cholesterol 84 mg/dL (< 100); Triglycerides 134 mg/dL (< 150)
[2021-10-02] MEDS: SODIUM CHLORIDE 0.9% 1,000 ML IV SCH (21:53)
[2021-10-02] MEDS: ASCORBIC ACID 500 MG TAB PO SCH (21:54)
[2021-10-02] MEDS: ATORVASTATIN 20 MG TAB PO SCH (21:54)
[2021-10-02] MEDS: PRAMIPEXOLE DIHYDROCHLORIDE MO 0.25 MG TAB PO SCH (21:54)
[2021-10-02] MEDS ORDERED: POTASSIUM CHL 20 Meq TABLET PO SCH (22:00)
[2021-10-02] MEDS ORDERED: AMITRIPTYLINE HCL 10 MG TAB PO SCH (22:00)
[2021-10-03 04:00] VITALS: BP 134/46
[2021-10-03 04:48] VITALS: BP 134/46
[2021-10-03] MEDS ORDERED: FUROSEMIDE 20 MG/2 ML VIAL IV SCH (06:00)
[2021-10-03 09:00] VITALS: BP 121/71
[2021-10-03] MEDS: METOPROLOL SUCCINATE XL 50 MG TAB PO SCH (09:45)
[2021-10-03] MEDS ORDERED: LISINOPRIL 5 MG TAB PO SCH (10:00)
[2021-10-03] MEDS ORDERED: CLOPIDOGREL BISULFATE 75 MG TAB PO SCH (10:00)
[2021-10-03] MEDS ORDERED: FAMOTIDINE (10MG/ML) 2ML VL IV SCH (10:00)
[2021-10-03 11:39] LABS: Basophils # (auto) 0 10 ^3/uL (0-0.2); Basophils % (auto) 0.4 % (0.0-2.0); Eosinophils # (auto) 0 10 ^3/uL (0-0.8); Hemoglobin 14.8 g/dL (13.5-17.5); Lymphocytes # (auto) 0.8 10 ^3/uL (0.4-5.4); Lymphocytes % (auto) 14.7 % (10.0-50.0); Mean Corpuscular Hemoglobin 29.6 pg (28.0-32.0); Mean Corpuscular Hgb Conc. 33.7 g/dL (32.0-36.0); Mean Corpuscular Volume 87.7 fL (80.0-100.0); Monocytes # (auto) 0.4 10 ^3/uL (0-1.3); Neutrophils # (auto) 4.1 10 ^3/uL (1.6-8.6); Neutrophils % (auto) 77.9 % (37.0-80.0); Nucleated Red Blood Cells % 0.1 %; Red Blood Cells 5.01 10^6/uL (4.5-5.90); Red Cell Distribution Width 13.7 % (11.8-14.3); White Blood Cell 5.3 10^3/uL (4.4-10.8)
[2021-10-03 11:55] LABS: Magnesium 1.9 mg/dL (1.6-2.6); Phosphorus 2.5 mg/dL (2.5-4.90); Uric Acid 4.8 mg/dL (3.5-7.2)
[2021-10-03] MEDS: ZINC SULFATE 220mg CAP or TAB PO SCH (11:57)
[2021-10-03] MEDS: DOXYCYCLINE 100MG/250ML 250 ML IV SCH ×2 (11:57→22:06)
[2021-10-03] MEDS: ASCORBIC ACID 500 MG TAB PO SCH ×2 (11:58→22:02)
[2021-10-03] MEDS: CHOLECALCIFEROL (VITD3) 2,000 UNIT CAP/TAB PO SCH (11:58)
[2021-10-03 12:16] LABS: INR > 8.0 (0.9-1.15); Partial Thromboplastin Time 92.8 sec (23.6-33.0)
[2021-10-03] MEDS: DIGOXIN 0.125 MG TAB PO SCH (12:59)
[2021-10-03 13:00] VITALS: BP 129/65
[2021-10-03 17:00] VITALS: BP 113/51
[2021-10-03] MEDS: TAMSULOSIN HYDROCHLORIDE 0.4 MG CAP PO SCH (18:12)
[2021-10-03 18:26] LABS: Alcohol, Urine < 3.0 mg/dL (0-10); Amphetamine Screen, Urine NEGATIVE (NEGATIVE); Barbiturate Scree,Urine NEGATIVE (NEGATIVE); Benzodiazephine Screen, Urine NEGATIVE (NEGATIVE); Cannabinoid Screen, Urine NEGATIVE (NEGATIVE); Cocaine Screen, Urine NEGATIVE (NEGATIVE); Opiate Scree,Urine NEGATIVE (NEGATIVE); Phencyclidine Screen, Urine NEGATIVE (NEGATIVE); Protein, Urine 178.2 mg/dL (0.0-11.9)
[2021-10-03 18:39] LABS: Urine Bacteria NONE SEEN /hpf (None Seen); Urine Blood 2+ /uL (Negative); Urine Hyaline Cast FEW /lpf (0 - 2); Urine Mucus FEW (None Seen); Urine Specific Gravity 1.017 (1.001-1.035); Urine WBC 2 /hpf (0 - 3)
[2021-10-03] MEDS: ALBUTEROL SULF HFA 90MCG INH 200DOSE IN SCH (20:05)
[2021-10-03 21:56] VITALS: BP 108/55
[2021-10-03] MEDS: AMIODARONE HCL 200 MG TAB PO SCH (22:03)
[2021-10-03] MEDS: PRAMIPEXOLE DIHYDROCHLORIDE MO 0.25 MG TAB PO SCH (22:04)
[2021-10-03] MEDS: ATORVASTATIN 20 MG TAB PO SCH (22:04)
[2021-10-03] MEDS: SODIUM CHLORIDE 0.9% 1,000 ML IV SCH (22:05)
[2021-10-04] VITALS (7 sets, daily range): BP systolic 90–130; BP diastolic 46–70
[2021-10-04] MEDS: AMITRIPTYLINE HCL 10 MG TAB PO SCH ×2 (00:42→21:24)
[2021-10-04 06:49] LABS: Basophils # (auto) 0 10 ^3/uL (0-0.2); Basophils % (auto) 0.4 % (0.0-2.0); Eosinophils # (auto) 0 10 ^3/uL (0-0.8); Hematocrit 45.1 % (41.0-53.0); Hemoglobin 15.5 g/dL (13.5-17.5); Lymphocytes # (auto) 0.7 10 ^3/uL (0.4-5.4); Lymphocytes % (auto) 13.7 % (10.0-50.0); Mean Corpuscular Hemoglobin 30.4 pg (28.0-32.0); Mean Corpuscular Hgb Conc. 34.3 g/dL (32.0-36.0); Mean Corpuscular Volume 88.6 fL (80.0-100.0); Monocytes # (auto) 0.4 10 ^3/uL (0-1.3); Monocytes % (auto) 7.2 % (0.0-12.0); Neutrophils # (auto) 4.1 10 ^3/uL (1.6-8.6); Neutrophils % (auto) 78.7 % (37.0-80.0); Nucleated Red Blood Cells % 0.2 %; Red Blood Cells 5.09 10^6/uL (4.5-5.90); Red Cell Distribution Width 13.6 % (11.8-14.3); White Blood Cell 5.2 10^3/uL (4.4-10.8)
[2021-10-04 07:01] LABS: Potassium 4.1 mmol/L (3.5-5.1)
[2021-10-04 07:24] LABS: Albumin 2.7 g/dL (3.4-5.0); BUN/Creatinine Ratio 13.4; Bilirubin, Total 0.6 mg/dL (0.2-1.0); Calcium 7.8 mg/dL (8.5-10.1); Total Protein 5.7 g/dL (6.4-8.2)
[2021-10-04 07:36] LABS: INR > 8.0 (0.9-1.15); Partial Thromboplastin Time 88.6 sec (23.6-33.0)
[2021-10-04] MEDS ORDERED: PHYTONADIONE(VitK) ORAL Susp 10mg/10ml(1mg/ml) PO ONE (09:00)
[2021-10-04] MEDS: DOXYCYCLINE 100MG/250ML 250 ML IV SCH ×2 (09:28→21:23)
[2021-10-04] MEDS: CHOLECALCIFEROL (VITD3) 2,000 UNIT CAP/TAB PO SCH (09:29)
[2021-10-04] MEDS: ZINC SULFATE 220mg CAP or TAB PO SCH (09:29)
[2021-10-04] MEDS: ASCORBIC ACID 500 MG TAB PO SCH ×2 (09:30→21:25)
[2021-10-04] MEDS: AMIODARONE HCL 200 MG TAB PO SCH ×2 (09:30→21:24)
[2021-10-04] MEDS: DIGOXIN 0.125 MG TAB PO SCH (10:00)
[2021-10-04] MEDS: ALBUTEROL SULF HFA 90MCG INH 200DOSE IN SCH ×2 (10:04→20:15)
[2021-10-04] MEDS ORDERED: PROMETHAZINE HCL 25 MG/ML 1ML IV ONE (11:00)
[2021-10-04] MEDS ORDERED: FUROSEMIDE 20 MG/2 ML VIAL IV ONE (11:30)
[2021-10-04] MEDS: FAMOTIDINE (10MG/ML) 2ML VL IV SCH (11:50)
[2021-10-04] MEDS: METOPROLOL SUCCINATE XL 50 MG TAB PO SCH (11:50)
[2021-10-04] MEDS: TAMSULOSIN HYDROCHLORIDE 0.4 MG CAP PO SCH (18:37)
[2021-10-04] MEDS: ATORVASTATIN 20 MG TAB PO SCH (21:24)
[2021-10-04] MEDS: PRAMIPEXOLE DIHYDROCHLORIDE MO 0.25 MG TAB PO SCH (21:25)
[2021-10-05 05:22] VITALS: BP 120/63
[2021-10-05] MEDS: DOXYCYCLINE 100MG/250ML 250 ML IV SCH ×2 (08:54→21:33)
[2021-10-05] MEDS: FAMOTIDINE (10MG/ML) 2ML VL IV SCH (08:54)
[2021-10-05] MEDS: ZINC SULFATE 220mg CAP or TAB PO SCH (08:54)
[2021-10-05] MEDS: AMIODARONE HCL 200 MG TAB PO SCH ×2 (08:55→21:32)
[2021-10-05] MEDS: DIGOXIN 0.125 MG TAB PO SCH (08:55)
[2021-10-05] MEDS: METOPROLOL SUCCINATE XL 50 MG TAB PO SCH (08:55)
[2021-10-05] MEDS: ASCORBIC ACID 500 MG TAB PO SCH ×2 (08:55→21:33)
[2021-10-05] MEDS: CHOLECALCIFEROL (VITD3) 2,000 UNIT CAP/TAB PO SCH (08:56)
[2021-10-05 09:00] VITALS: BP 107/77
[2021-10-05 10:45] LABS: Calcium 7.9 mg/dL (8.5-10.1); Potassium 4.3 mmol/L (3.5-5.1)
[2021-10-05 10:47] LABS: BUN/Creatinine Ratio 18.1
[2021-10-05 13:00] VITALS: BP 140/60
[2021-10-05] MEDS: ALBUTEROL SULF HFA 90MCG INH 200DOSE IN SCH ×3 (15:03→23:08)
[2021-10-05 17:31] VITALS: BP 117/74
[2021-10-05] MEDS: TAMSULOSIN HYDROCHLORIDE 0.4 MG CAP PO SCH (18:18)
[2021-10-05] MEDS: AMITRIPTYLINE HCL 10 MG TAB PO SCH (21:32)
[2021-10-05] MEDS: ATORVASTATIN 20 MG TAB PO SCH (21:32)
[2021-10-05] MEDS: PRAMIPEXOLE DIHYDROCHLORIDE MO 0.25 MG TAB PO SCH (21:33)
[2021-10-05 22:00] VITALS: BP 114/61
[2021-10-06 05:00] VITALS: BP 105/70
[2021-10-06 07:14] LABS: INR 1.12 (0.9-1.15)
[2021-10-06 07:19] LABS: Potassium 4.2 mmol/L (3.5-5.1)
[2021-10-06 07:24] LABS: Basophils # (auto) 0 10 ^3/uL (0-0.2); Basophils % (auto) 0.3 % (0.0-2.0); Eosinophils # (auto) 0 10 ^3/uL (0-0.8); Hematocrit 44.1 % (41.0-53.0); Hemoglobin 14.9 g/dL (13.5-17.5); Lymphocytes # (auto) 0.5 10 ^3/uL (0.4-5.4); Lymphocytes % (auto) 8.5 % (10.0-50.0); Mean Corpuscular Hemoglobin 30.5 pg (28.0-32.0); Mean Corpuscular Hgb Conc. 33.9 g/dL (32.0-36.0); Mean Corpuscular Volume 90.1 fL (80.0-100.0); Monocytes # (auto) 0.4 10 ^3/uL (0-1.3); Monocytes % (auto) 6.3 % (0.0-12.0); Neutrophils # (auto) 5.4 10 ^3/uL (1.6-8.6); Neutrophils % (auto) 84.9 % (37.0-80.0); Nucleated Red Blood Cells % 0.2 %; Red Blood Cells 4.89 10^6/uL (4.5-5.90); Red Cell Distribution Width 13.9 % (11.8-14.3); White Blood Cell 6.3 10^3/uL (4.4-10.8)
[2021-10-06 07:26] LABS: Calcium 7.9 mg/dL (8.5-10.1)
[2021-10-06 09:00] VITALS: BP 110/55
[2021-10-06] MEDS: FAMOTIDINE (10MG/ML) 2ML VL IV SCH (10:40)
[2021-10-06] MEDS: AMIODARONE HCL 200 MG TAB PO SCH ×2 (10:41→21:31)
[2021-10-06] MEDS: DOXYCYCLINE 100MG/250ML 250 ML IV SCH ×2 (10:41→21:31)
[2021-10-06] MEDS: METOPROLOL SUCCINATE XL 50 MG TAB PO SCH (10:41)
[2021-10-06] MEDS: DIGOXIN 0.125 MG TAB PO SCH (10:41)
[2021-10-06] MEDS: ZINC SULFATE 220mg CAP or TAB PO SCH (10:41)
[2021-10-06] MEDS: CHOLECALCIFEROL (VITD3) 2,000 UNIT CAP/TAB PO SCH (10:42)
[2021-10-06] MEDS: ASCORBIC ACID 500 MG TAB PO SCH ×2 (10:42→21:34)
[2021-10-06 13:09] VITALS: BP 133/54
[2021-10-06] MEDS: ENOXAPARIN SOD 80 MG/0.8ML SYRINGE SC SCH ×2 (13:09→21:34)
[2021-10-06] MEDS ORDERED: SODIUM CHLORIDE 0.9% 1,000 ML IV ONE (15:30)
[2021-10-06 16:43] VITALS: BP 126/59
[2021-10-06] MEDS: TAMSULOSIN HYDROCHLORIDE 0.4 MG CAP PO SCH (18:26)
[2021-10-06 21:10] VITALS: BP 106/61
[2021-10-06] MEDS: ALBUTEROL SULF HFA 90MCG INH 200DOSE IN PRN (21:23)
[2021-10-06] MEDS: ATORVASTATIN 20 MG TAB PO SCH (21:32)
[2021-10-06] MEDS: PRAMIPEXOLE DIHYDROCHLORIDE MO 0.25 MG TAB PO SCH (21:33)
[2021-10-06] MEDS: AMITRIPTYLINE HCL 10 MG TAB PO SCH (23:35)
[2021-10-07] VITALS (7 sets, daily range): BP systolic 106–144; BP diastolic 52–65
[2021-10-07] MEDS: ALBUTEROL SULF HFA 90MCG INH 200DOSE IN PRN ×2 (06:06→19:37)
[2021-10-07 06:53] LABS: Basophils # (auto) 0 10 ^3/uL (0-0.2); Basophils % (auto) 0.5 % (0.0-2.0); Eosinophils # (auto) 0 10 ^3/uL (0-0.8); Hematocrit 47.1 % (41.0-53.0); Hemoglobin 15.8 g/dL (13.5-17.5); Lymphocytes # (auto) 0.6 10 ^3/uL (0.4-5.4); Lymphocytes % (auto) 7.2 % (10.0-50.0); Mean Corpuscular Hemoglobin 29.8 pg (28.0-32.0); Mean Corpuscular Hgb Conc. 33.6 g/dL (32.0-36.0); Mean Corpuscular Volume 88.6 fL (80.0-100.0); Monocytes # (auto) 0.3 10 ^3/uL (0-1.3); Monocytes % (auto) 3.8 % (0.0-12.0); Neutrophils # (auto) 7.5 10 ^3/uL (1.6-8.6); Neutrophils % (auto) 88.5 % (37.0-80.0); Nucleated Red Blood Cells % 0.2 %; Red Blood Cells 5.32 10^6/uL (4.5-5.90); Red Cell Distribution Width 13.7 % (11.8-14.3); White Blood Cell 8.5 10^3/uL (4.4-10.8)
[2021-10-07 07:13] LABS: Potassium 4.3 mmol/L (3.5-5.1)
[2021-10-07 07:25] LABS: Albumin 2.6 g/dL (3.4-5.0); BUN/Creatinine Ratio 17.7; Bilirubin, Total 0.9 mg/dL (0.2-1.0); CRP High Sensitivity 13.6 mg/dL (< 0.3); Magnesium 2.6 mg/dL (1.6-2.6); Total Protein 5.7 g/dL (6.4-8.2)
[2021-10-07] MEDS: DOXYCYCLINE 100MG/250ML 250 ML IV SCH (09:53)
[2021-10-07] MEDS: FAMOTIDINE (10MG/ML) 2ML VL IV SCH (09:53)
[2021-10-07] MEDS: ZINC SULFATE 220mg CAP or TAB PO SCH (09:53)
[2021-10-07] MEDS: AMIODARONE HCL 200 MG TAB PO SCH ×2 (09:53→22:19)
[2021-10-07] MEDS: CLOPIDOGREL BISULFATE 75 MG TAB PO SCH (09:54)
[2021-10-07] MEDS: DIGOXIN 0.125 MG TAB PO SCH (09:54)
[2021-10-07] MEDS: METOPROLOL SUCCINATE XL 50 MG TAB PO SCH (09:54)
[2021-10-07] MEDS: ENOXAPARIN SOD 80 MG/0.8ML SYRINGE SC SCH ×2 (09:55→22:20)
[2021-10-07] MEDS: CHOLECALCIFEROL (VITD3) 2,000 UNIT CAP/TAB PO SCH (09:55)
[2021-10-07] MEDS: ASCORBIC ACID 500 MG TAB PO SCH ×2 (09:55→22:19)
[2021-10-07] MEDS ORDERED: DexAMETHasone SOD PHOS 4 MG/1ML SDV INJ IV ONE (15:15)
[2021-10-07] MEDS: TAMSULOSIN HYDROCHLORIDE 0.4 MG CAP PO SCH (17:46)
[2021-10-07] MEDS: BUDESONIDE (INHALATION) 180 MCG IH IN SCH (19:37)
[2021-10-07] MEDS ORDERED: BUDESONIDE (INHALATION) 0.5 MG/2 ML NEB NEB SCH (22:00)
[2021-10-07] MEDS: PRAMIPEXOLE DIHYDROCHLORIDE MO 0.25 MG TAB PO SCH (22:19)
[2021-10-07] MEDS: DexAMETHasone SOD PHOS 4 MG/1ML SDV INJ IV SCH (22:19)
[2021-10-07] MEDS: ATORVASTATIN 20 MG TAB PO SCH (22:19)
[2021-10-07] MEDS: AMITRIPTYLINE HCL 10 MG TAB PO SCH (22:23)
[2021-10-08 05:00] VITALS: BP 129/65
[2021-10-08] MEDS: ALBUTEROL SULF HFA 90MCG INH 200DOSE IN PRN ×2 (06:51→21:38)
[2021-10-08 08:12] LABS: Albumin 2.2 g/dL (3.4-5.0); Calcium 8.1 mg/dL (8.5-10.1); Potassium 4.6 mmol/L (3.5-5.1)
[2021-10-08 08:17] LABS: BUN/Creatinine Ratio 20.5; Bilirubin, Total 0.9 mg/dL (0.2-1.0); Total Protein 5.1 g/dL (6.4-8.2)
[2021-10-08 08:36] VITALS: BP 126/61
[2021-10-08] MEDS: DexAMETHasone SOD PHOS 4 MG/1ML SDV INJ IV SCH ×2 (09:51→21:37)
[2021-10-08] MEDS: levoFLOXacin 750MG 150 ML IV SCH (09:51)
[2021-10-08] MEDS: FAMOTIDINE (10MG/ML) 2ML VL IV SCH (09:51)
[2021-10-08] MEDS: ZINC SULFATE 220mg CAP or TAB PO SCH (09:52)
[2021-10-08] MEDS: DIGOXIN 0.125 MG TAB PO SCH (09:52)
[2021-10-08] MEDS: CLOPIDOGREL BISULFATE 75 MG TAB PO SCH (09:52)
[2021-10-08] MEDS: CHOLECALCIFEROL (VITD3) 2,000 UNIT CAP/TAB PO SCH (09:52)
[2021-10-08] MEDS: ASCORBIC ACID 500 MG TAB PO SCH ×2 (09:52→21:37)
[2021-10-08] MEDS: AMIODARONE HCL 200 MG TAB PO SCH ×2 (09:52→21:37)
[2021-10-08] MEDS: ENOXAPARIN SOD 80 MG/0.8ML SYRINGE SC SCH ×2 (09:53→21:37)
[2021-10-08] MEDS: METOPROLOL SUCCINATE XL 50 MG TAB PO SCH (09:54)
[2021-10-08] MEDS ORDERED: REMDESIVIR PER PHARMACY 0 ML IV SCH (11:00)
[2021-10-08 13:00] VITALS: BP 126/67
[2021-10-08] MEDS ORDERED: REMDESIVIR 200 MG in NS 210ml LOADING DOSE ADULT IV ONE (15:00)
[2021-10-08 16:30] VITALS: BP 130/64
[2021-10-08] MEDS: TAMSULOSIN HYDROCHLORIDE 0.4 MG CAP PO SCH (17:28)
[2021-10-08] MEDS: BUDESONIDE (INHALATION) 180 MCG IH IN SCH (21:37)
[2021-10-08] MEDS: ATORVASTATIN 20 MG TAB PO SCH (21:37)
[2021-10-08] MEDS: PRAMIPEXOLE DIHYDROCHLORIDE MO 0.25 MG TAB PO SCH (21:37)
[2021-10-08] MEDS: AMITRIPTYLINE HCL 10 MG TAB PO SCH (21:42)
[2021-10-08 22:00] VITALS: BP 138/44
[2021-10-09 05:00] VITALS: BP 124/43
[2021-10-09 07:39] LABS: Albumin 2.3 g/dL (3.4-5.0); Calcium 8.3 mg/dL (8.5-10.1); Potassium 4.5 mmol/L (3.5-5.1)
[2021-10-09 07:43] LABS: BUN/Creatinine Ratio 24.7; Bilirubin, Total 0.8 mg/dL (0.2-1.0); Total Protein 5.3 g/dL (6.4-8.2)
[2021-10-09 08:00] VITALS: BP 126/54
[2021-10-09] MEDS: ALBUTEROL SULF HFA 90MCG INH 200DOSE IN PRN (08:47)
[2021-10-09] MEDS: BUDESONIDE (INHALATION) 180 MCG IH IN SCH ×2 (08:47→17:58)
[2021-10-09 10:00] VITALS: BP 126/54
[2021-10-09] MEDS: DIGOXIN 0.125 MG TAB PO SCH (10:25)
[2021-10-09] MEDS: CLOPIDOGREL BISULFATE 75 MG TAB PO SCH (10:25)
[2021-10-09] MEDS: ENOXAPARIN SOD 80 MG/0.8ML SYRINGE SC SCH ×2 (10:26→22:53)
[2021-10-09] MEDS: AMIODARONE HCL 200 MG TAB PO SCH ×2 (10:26→22:53)
[2021-10-09] MEDS: FAMOTIDINE (10MG/ML) 2ML VL IV SCH (10:26)
[2021-10-09] MEDS: ASCORBIC ACID 500 MG TAB PO SCH (10:26)
[2021-10-09] MEDS: DexAMETHasone SOD PHOS 4 MG/1ML SDV INJ IV SCH ×2 (10:27→22:53)
[2021-10-09] MEDS: CHOLECALCIFEROL (VITD3) 2,000 UNIT CAP/TAB PO SCH (10:27)
[2021-10-09 10:40] VITALS: BP 124/43
[2021-10-09] MEDS: levoFLOXacin 750MG 150 ML IV SCH (10:45)
[2021-10-09] MEDS: METOPROLOL SUCCINATE XL 50 MG TAB PO SCH (11:55)
[2021-10-09] MEDS: REMDESIVIR 100mg 100 MG in SODIUM CHL 0.9% 230 ML IV SCH (16:38)
[2021-10-09 17:02] VITALS: BP 129/63
[2021-10-09] MEDS ORDERED: FUROSEMIDE 20 MG/2 ML VIAL IV ONE (18:00)
[2021-10-09] MEDS: TAMSULOSIN HYDROCHLORIDE 0.4 MG CAP PO SCH (18:00)
[2021-10-09 22:29] VITALS: BP 148/83
[2021-10-09] MEDS: ATORVASTATIN 20 MG TAB PO SCH (22:53)
[2021-10-09] MEDS: PRAMIPEXOLE DIHYDROCHLORIDE MO 0.25 MG TAB PO SCH (22:53)
[2021-10-09] MEDS: AMITRIPTYLINE HCL 10 MG TAB PO SCH (22:53)
[2021-10-10 05:00] VITALS: BP 139/110
[2021-10-10 05:47] LABS: Basophils # (auto) 0.1 10 ^3/uL (0-0.2); Basophils % (auto) 0.4 % (0.0-2.0); Eosinophils # (auto) 0 10 ^3/uL (0-0.8); Hematocrit 45.7 % (41.0-53.0); Hemoglobin 15.4 g/dL (13.5-17.5); Lymphocytes % (auto) 4.9 % (10.0-50.0); Mean Corpuscular Hemoglobin 29.6 pg (28.0-32.0); Mean Corpuscular Hgb Conc. 33.6 g/dL (32.0-36.0); Mean Corpuscular Volume 88.1 fL (80.0-100.0); Monocytes % (auto) 4.8 % (0.0-12.0); Neutrophils # (auto) 18.1 10 ^3/uL (1.6-8.6); Neutrophils % (auto) 89.9 % (37.0-80.0); Nucleated Red Blood Cells % 0.1 %; Red Blood Cells 5.19 10^6/uL (4.5-5.90); Red Cell Distribution Width 14.3 % (11.8-14.3); White Blood Cell 20.2 10^3/uL (4.4-10.8)
[2021-10-10 06:13] LABS: Albumin 2.7 g/dL (3.4-5.0); Calcium 8.6 mg/dL (8.5-10.1); Potassium 4.3 mmol/L (3.5-5.1)
[2021-10-10] MEDS: ALBUTEROL SULF HFA 90MCG INH 200DOSE IN PRN (06:14)
[2021-10-10] MEDS: BUDESONIDE (INHALATION) 180 MCG IH IN SCH ×2 (06:14→22:00)
[2021-10-10 06:16] LABS: BUN/Creatinine Ratio 25.3; Bilirubin, Total 0.9 mg/dL (0.2-1.0)
[2021-10-10 08:00] VITALS: BP 123/80
[2021-10-10 09:00] VITALS: BP 166/71
[2021-10-10] MEDS: DIGOXIN 0.125 MG TAB PO SCH (11:14)
[2021-10-10] MEDS: DexAMETHasone SOD PHOS 4 MG/1ML SDV INJ IV SCH ×2 (11:15→22:43)
[2021-10-10] MEDS: METOPROLOL SUCCINATE XL 50 MG TAB PO SCH (11:15)
[2021-10-10] MEDS: CLOPIDOGREL BISULFATE 75 MG TAB PO SCH (11:15)
[2021-10-10] MEDS: CHOLECALCIFEROL (VITD3) 2,000 UNIT CAP/TAB PO SCH (11:15)
[2021-10-10] MEDS: FAMOTIDINE (10MG/ML) 2ML VL IV SCH (11:16)
[2021-10-10] MEDS: AMIODARONE HCL 200 MG TAB PO SCH ×2 (11:16→22:42)
[2021-10-10] MEDS: ENOXAPARIN SOD 80 MG/0.8ML SYRINGE SC SCH ×2 (11:16→22:43)
[2021-10-10 13:00] VITALS: BP 128/68
[2021-10-10 13:13] LABS: Magnesium 2.7 mg/dL (1.6-2.6); Phosphorus 3.5 mg/dL (2.5-4.90)
[2021-10-10] MEDS ORDERED: CLINIMIX PER PHARMACY 0 ML IV SCH (14:45)
[2021-10-10] MEDS: REMDESIVIR 100mg 100 MG in SODIUM CHL 0.9% 230 ML IV SCH (15:54)
[2021-10-10 17:00] VITALS: BP 145/62
[2021-10-10] MEDS: TAMSULOSIN HYDROCHLORIDE 0.4 MG CAP PO SCH (18:18)
[2021-10-10] MEDS ORDERED: AMINO ACID INFUSION IN D10W 1,000 ML IV NR (20:00)
[2021-10-10 22:00] VITALS: BP 132/77
[2021-10-10] MEDS: ATORVASTATIN 20 MG TAB PO SCH (22:41)
[2021-10-10] MEDS: PRAMIPEXOLE DIHYDROCHLORIDE MO 0.25 MG TAB PO SCH (22:42)
[2021-10-10] MEDS: AMITRIPTYLINE HCL 10 MG TAB PO SCH (22:42)
[2021-10-11 04:55] VITALS: BP 146/73
[2021-10-11 06:50] LABS: Calcium 8.7 mg/dL (8.5-10.1); Potassium 4.4 mmol/L (3.5-5.1)
[2021-10-11] MEDS: BUDESONIDE (INHALATION) 180 MCG IH IN SCH ×2 (06:53→20:08)
[2021-10-11 06:58] LABS: Albumin 2.8 g/dL (3.4-5.0); BUN/Creatinine Ratio 27.9; Bilirubin, Total 1.1 mg/dL (0.2-1.0); Magnesium 3.5 mg/dL (1.6-2.6); Phosphorus 3.4 mg/dL (2.5-4.90); Pre Albumin 9.6 mg/dL (20.0-40.0); Total Protein 6.3 g/dL (6.4-8.2)
[2021-10-11 08:47] VITALS: BP 146/90
[2021-10-11] MEDS: FAMOTIDINE (10MG/ML) 2ML VL IV SCH (09:21)
[2021-10-11] MEDS: DexAMETHasone SOD PHOS 4 MG/1ML SDV INJ IV SCH ×2 (09:21→22:24)
[2021-10-11] MEDS: CLOPIDOGREL BISULFATE 75 MG TAB PO SCH ×2 (09:22→10:00)
[2021-10-11] MEDS: HALOPERIDOL LACTATE 5 MG/ML INJ VIAL IM PRN ×2 (09:22→18:00)
[2021-10-11] MEDS: AMIODARONE HCL 200 MG TAB PO SCH ×3 (09:22→22:00)
[2021-10-11] MEDS: DIGOXIN 0.125 MG TAB PO SCH ×2 (09:23→10:00)
[2021-10-11] MEDS ORDERED: levoFLOXacin 750MG 150 ML IV SCH (10:00)
[2021-10-11] MEDS: METOPROLOL SUCCINATE XL 50 MG TAB PO SCH (10:00)
[2021-10-11] MEDS: CHOLECALCIFEROL (VITD3) 2,000 UNIT CAP/TAB PO SCH (10:00)
[2021-10-11] MEDS: ENOXAPARIN SOD 80 MG/0.8ML SYRINGE SC SCH ×2 (10:05→22:24)
[2021-10-11] MEDS ORDERED: DEXTROSE (50%) 50ML SYRG IV SCH (12:00)
[2021-10-11] MEDS: ACCU-CHEK COMFORT CURVE STRIP VI SCH ×2 (12:09→17:55)
[2021-10-11] MEDS: InsuLIN REG 1unit/0.01ml Soln (100units/ml) SC SCH ×2 (12:09→17:55)
[2021-10-11 12:59] VITALS: BP 123/63
[2021-10-11 16:50] VITALS: BP 123/63
[2021-10-11] MEDS: TAMSULOSIN HYDROCHLORIDE 0.4 MG CAP PO SCH (16:58)
[2021-10-11] MEDS: REMDESIVIR 100mg 100 MG in SODIUM CHL 0.9% 230 ML IV SCH (16:58)
[2021-10-11] MEDS ORDERED: AMINO ACID INFUSION IN D10W 1,000 ML IV NR (20:00)
[2021-10-11] MEDS: AMITRIPTYLINE HCL 10 MG TAB PO SCH (22:00)
[2021-10-11] MEDS: PRAMIPEXOLE DIHYDROCHLORIDE MO 0.25 MG TAB PO SCH (22:00)
[2021-10-12] VITALS (62 sets, daily range): BP systolic 50–151; BP diastolic 22–67
[2021-10-12] MEDS: HALOPERIDOL LACTATE 5 MG/ML INJ VIAL IM PRN (01:58)
[2021-10-12 05:59] LABS: Eosinophils # (auto) 0 10 ^3/uL (0-0.8); Lymphocytes # (auto) 0.4 10 ^3/uL (0.4-5.4); Mean Corpuscular Volume 87.9 fL (80.0-100.0); Monocytes # (auto) 0.5 10 ^3/uL (0-1.3); Nucleated Red Blood Cells % 0.1 %
[2021-10-12 06:03] LABS: Basophils # (auto) 0 10 ^3/uL (0-0.2); Basophils % (auto) 0.1 % (0.0-2.0); Hematocrit 46.3 % (41.0-53.0); Hemoglobin 15.5 g/dL (13.5-17.5); Lymphocytes % (auto) 1.8 % (10.0-50.0); Mean Corpuscular Hemoglobin 29.5 pg (28.0-32.0); Mean Corpuscular Hgb Conc. 33.5 g/dL (32.0-36.0); Monocytes % (auto) 2.6 % (0.0-12.0); Neutrophils # (auto) 18.3 10 ^3/uL (1.6-8.6); Neutrophils % (auto) 95.5 % (37.0-80.0); Red Blood Cells 5.27 10^6/uL (4.5-5.90); Red Cell Distribution Width 14.3 % (11.8-14.3); White Blood Cell 19.2 10^3/uL (4.4-10.8)
[2021-10-12 06:19] LABS: Potassium 5.1 mmol/L (3.5-5.1)
[2021-10-12 06:29] LABS: Albumin 2.7 g/dL (3.4-5.0); BUN/Creatinine Ratio 27.6; Bilirubin, Total 1.3 mg/dL (0.2-1.0); Calcium 8.8 mg/dL (8.5-10.1); Magnesium 3.5 mg/dL (1.6-2.6); Phosphorus 3.7 mg/dL (2.5-4.90); Total Protein 6.5 g/dL (6.4-8.2)
[2021-10-12] MEDS: ACCU-CHEK COMFORT CURVE STRIP VI SCH ×2 (07:00)
[2021-10-12] MEDS: InsuLIN REG 1unit/0.01ml Soln (100units/ml) SC SCH ×2 (07:02)
[2021-10-12] MEDS ORDERED: fentaNYL Drip 2500mCg/250mlNS 250 ML IV ONE (09:57)
[2021-10-12] MEDS ORDERED: ETOMIDATE (2MG/ML) 20ML VIAL IV ONE (09:57)
[2021-10-12] MEDS ORDERED: PROPOFOL 100 ML IV ONE (09:58)
[2021-10-12] MEDS ORDERED: SUCCINYLCHOLINE CHLORIDE 20 MG/ML 10ML VIAL IV ONE (09:58)
[2021-10-12] MEDS: CHOLECALCIFEROL (VITD3) 2,000 UNIT CAP/TAB PO SCH (10:00)
[2021-10-12] MEDS: CLOPIDOGREL BISULFATE 75 MG TAB PO SCH (10:00)
[2021-10-12] MEDS: AMIODARONE HCL 200 MG TAB PO SCH ×2 (10:00→21:07)
[2021-10-12] MEDS: DIGOXIN 0.125 MG TAB PO SCH (10:00)
[2021-10-12] MEDS ORDERED: MIDAZOLAM HCL 5 MG/ML-1ML VIAL ONE (10:11)
[2021-10-12] MEDS ORDERED: NOREPINEPHRINE 8 MG/250ML KIT 250 ML IV ONE ×3 (10:31→22:18)
[2021-10-12] MEDS: fentaNYL Drip 2500mCg/250mlNS 250 ML IV SCH (11:00)
[2021-10-12 12:09] LABS: INR > 8.0 (0.9-1.15); Partial Thromboplastin Time 72.9 sec (23.6-33.0)
[2021-10-12] MEDS ORDERED: VANCOMYCIN PER PHARMACY 0 MG IV SCH (12:15)
[2021-10-12] MEDS ORDERED: VANCOMYCIN 1GM/250ML 250 ML IV ONE (13:00)
[2021-10-12] MEDS: PROPOFOL 100 ML IV SCH (14:54)
[2021-10-12] MEDS: REMDESIVIR 100mg 100 MG in SODIUM CHL 0.9% 230 ML IV SCH ×2 (15:00→20:48)
[2021-10-12] MEDS: DexAMETHasone SOD PHOS 4 MG/1ML SDV INJ IV SCH ×2 (15:12→21:07)
[2021-10-12] MEDS: FAMOTIDINE (10MG/ML) 2ML VL IV SCH (15:12)
[2021-10-12] MEDS: MEROPENEM 1GM IVPB 100 ML IV SCH (16:00)
[2021-10-12] MEDS ORDERED: AMINO ACID INFUSION IN D10W 1,000 ML IV NR (20:00)
[2021-10-12] MEDS: AMITRIPTYLINE HCL 10 MG TAB PO SCH (21:07)
[2021-10-12] MEDS: ALBUTEROL SULF 2.5 MG/0.5ML(0.5%) NEB SOLN NEB PRN (21:52)
[2021-10-12] MEDS: BUDESONIDE (INHALATION) 0.5 MG/2 ML NEB NEB SCH (21:52)
[2021-10-13] VITALS (102 sets, daily range): BP systolic 70–134; BP diastolic 35–61
[2021-10-13] MEDS: MEROPENEM 1GM IVPB 100 ML IV SCH ×2 (00:59→14:00)
[2021-10-13] MEDS: NOREPINEPHRINE 8 MG/250ML KIT 250 ML IV SCH ×2 (05:19→13:23)
[2021-10-13] MEDS: BUDESONIDE (INHALATION) 0.5 MG/2 ML NEB NEB SCH ×2 (06:20→22:08)
[2021-10-13] MEDS: ALBUTEROL SULF 2.5 MG/0.5ML(0.5%) NEB SOLN NEB PRN (06:20)
[2021-10-13] MEDS: DIGOXIN 0.125 MG TAB PO SCH (09:23)
[2021-10-13] MEDS: AMIODARONE HCL 200 MG TAB PO SCH ×3 (09:23→21:15)
[2021-10-13] MEDS: CLOPIDOGREL BISULFATE 75 MG TAB PO SCH (09:24)
[2021-10-13] MEDS: CHOLECALCIFEROL (VITD3) 2,000 UNIT CAP/TAB PO SCH (09:24)
[2021-10-13] MEDS: FAMOTIDINE (10MG/ML) 2ML VL IV SCH (10:00)
[2021-10-13] MEDS: DexAMETHasone SOD PHOS 4 MG/1ML SDV INJ IV SCH ×2 (10:00→21:14)
[2021-10-13] MEDS ORDERED: MIDAZOLAM HCL 5 MG/ML-1ML VIAL IV ONE (10:15)
[2021-10-13] MEDS: fentaNYL Drip 2500mCg/250mlNS 250 ML IV SCH (11:00)
[2021-10-13] MEDS: PROPOFOL 100 ML IV SCH (12:42)
[2021-10-13 13:51] LABS: Basophils # (auto) 0 10 ^3/uL (0-0.2); Basophils % (auto) 0.2 % (0.0-2.0); Eosinophils # (auto) 0 10 ^3/uL (0-0.8); Eosinophils % (auto) 0.1 % (0.0-7.0); Hemoglobin 12.9 g/dL (13.5-17.5); Lymphocytes # (auto) 0.3 10 ^3/uL (0.4-5.4); Lymphocytes % (auto) 1.9 % (10.0-50.0); Mean Corpuscular Hemoglobin 29.6 pg (28.0-32.0); Mean Corpuscular Hgb Conc. 32.4 g/dL (32.0-36.0); Mean Corpuscular Volume 91.2 fL (80.0-100.0); Monocytes # (auto) 0.8 10 ^3/uL (0-1.3); Monocytes % (auto) 4.4 % (0.0-12.0); Neutrophils # (auto) 16.1 10 ^3/uL (1.6-8.6); Neutrophils % (auto) 93.4 % (37.0-80.0); Red Blood Cells 4.38 10^6/uL (4.5-5.90); Red Cell Distribution Width 15.4 % (11.8-14.3); White Blood Cell 17.2 10^3/uL (4.4-10.8)
[2021-10-13 14:07] LABS: Albumin 1.7 g/dL (3.4-5.0); Magnesium 3.6 mg/dL (1.6-2.6); Potassium 5.3 mmol/L (3.5-5.1)
[2021-10-13 14:10] LABS: BUN/Creatinine Ratio 29.2; Bilirubin, Total 0.6 mg/dL (0.2-1.0); Total Protein 5.1 g/dL (6.4-8.2)
[2021-10-13 14:53] LABS: INR 6.86 (0.9-1.15)
[2021-10-13] MEDS ORDERED: DEXTROSE (50%) 50ML SYRG IV SCH (15:15)
[2021-10-13] MEDS ORDERED: VANCOMYCIN 1GM/250ML 250 ML IV ONE (17:00)
[2021-10-13] MEDS: InsuLIN REG 1unit/0.01ml Soln (100units/ml) SC SCH (18:15)
[2021-10-13] MEDS: ACCU-CHEK COMFORT CURVE STRIP VI SCH (18:15)
[2021-10-13] MEDS ORDERED: AMINO ACID INFUSION IN D10W 1,000 ML IV NR (20:00)
[2021-10-13] MEDS: AMITRIPTYLINE HCL 10 MG TAB PO SCH (21:15)
[2021-10-14] VITALS (89 sets, daily range): BP systolic 52–138; BP diastolic 39–65
[2021-10-14] MEDS: InsuLIN REG 1unit/0.01ml Soln (100units/ml) SC SCH ×4 (00:46→17:28)
[2021-10-14] MEDS: ACCU-CHEK COMFORT CURVE STRIP VI SCH ×4 (00:47→17:28)
[2021-10-14] MEDS: MEROPENEM 500MG IVPB 50 ML IV SCH ×2 (01:30→14:00)
[2021-10-14 04:50] LABS: Hematocrit 41.3 % (41.0-53.0); Hemoglobin 13.4 g/dL (13.5-17.5); Mean Corpuscular Hemoglobin 29.5 pg (28.0-32.0); Mean Corpuscular Hgb Conc. 32.3 g/dL (32.0-36.0); Mean Corpuscular Volume 91.2 fL (80.0-100.0); Red Blood Cells 4.53 10^6/uL (4.5-5.90); Red Cell Distribution Width 15.3 % (11.8-14.3); White Blood Cell 17.4 10^3/uL (4.4-10.8)
[2021-10-14 05:11] LABS: Basophils % (manual) 0 (0.0-2.0); Blast Cells 0; Eosinophils % (manual) 0 (0-7); Metamyelocytes % 0; Monocytes % (manual) 0 (0-12); Myelocytes % 0; Promyelocytes % 0; Reactive Lymphocytes 0
[2021-10-14 05:31] LABS: INR 5.55 (0.9-1.15)
[2021-10-14 06:47] LABS: Band Neutrophils % (manual) 4; Lymphocytes % (manual) 2 (10.0-50.0)
[2021-10-14] MEDS: ALBUTEROL SULF 2.5 MG/0.5ML(0.5%) NEB SOLN NEB PRN ×2 (07:24→21:55)
[2021-10-14] MEDS: BUDESONIDE (INHALATION) 0.5 MG/2 ML NEB NEB SCH ×2 (07:24→21:55)
[2021-10-14] MEDS: DexAMETHasone SOD PHOS 4 MG/1ML SDV INJ IV SCH (11:00)
[2021-10-14] MEDS: FAMOTIDINE (10MG/ML) 2ML VL IV SCH (11:01)
[2021-10-14] MEDS: AMIODARONE HCL 200 MG TAB PO SCH ×2 (11:01→22:06)
[2021-10-14] MEDS: DIGOXIN 0.125 MG TAB PO SCH (11:01)
[2021-10-14] MEDS: CHOLECALCIFEROL (VITD3) 2,000 UNIT CAP/TAB PO SCH (11:02)
[2021-10-14] MEDS: PROPOFOL 100 ML IV SCH ×2 (11:02→20:10)
[2021-10-14] MEDS: CLOPIDOGREL BISULFATE 75 MG TAB PO SCH (11:02)
[2021-10-14] MEDS: NOREPINEPHRINE 8 MG/250ML KIT 250 ML IV SCH ×2 (11:03→21:45)
[2021-10-14] MEDS ORDERED: SODIUM ZIRCONIUM CYCL 10 GM PAK PO ONE (14:00)
[2021-10-14] MEDS: fentaNYL Drip 2500mCg/250mlNS 250 ML IV SCH (19:00)
[2021-10-14] MEDS ORDERED: AMINO ACID INFUSION IN D10W 1,000 ML IV NR (20:00)
[2021-10-14] MEDS: SODIUM ZIRCONIUM CYCL 10 GM PAK PO SCH (22:07)
[2021-10-14] MEDS: AMITRIPTYLINE HCL 10 MG TAB PO SCH (22:07)
[2021-10-15] VITALS (107 sets, daily range): BP systolic 100–155; BP diastolic 26–58
[2021-10-15] MEDS: MEROPENEM 500MG IVPB 50 ML IV SCH ×2 (01:47→14:19)
[2021-10-15] MEDS: ALBUTEROL SULF 2.5 MG/0.5ML(0.5%) NEB SOLN NEB PRN ×2 (05:53→18:59)
[2021-10-15] MEDS: BUDESONIDE (INHALATION) 0.5 MG/2 ML NEB NEB SCH ×2 (05:53→18:59)
[2021-10-15] MEDS: InsuLIN REG 1unit/0.01ml Soln (100units/ml) SC SCH ×4 (06:28→18:00)
[2021-10-15] MEDS: ACCU-CHEK COMFORT CURVE STRIP VI SCH ×4 (06:29→18:00)
[2021-10-15] MEDS: fentaNYL Drip 2500mCg/250mlNS 250 ML IV SCH (08:31)
[2021-10-15] MEDS: PROPOFOL 100 ML IV SCH ×3 (08:32→22:21)
[2021-10-15] MEDS: CLOPIDOGREL BISULFATE 75 MG TAB PO SCH (10:00)
[2021-10-15] MEDS: FAMOTIDINE (10MG/ML) 2ML VL IV SCH (10:00)
[2021-10-15] MEDS: DexAMETHasone SOD PHOS 4 MG/1ML SDV INJ IV SCH (10:00)
[2021-10-15] MEDS: DIGOXIN 0.125 MG TAB PO SCH (10:00)
[2021-10-15] MEDS: AMIODARONE HCL 200 MG TAB PO SCH ×2 (10:00→22:19)
[2021-10-15] MEDS: CHOLECALCIFEROL (VITD3) 2,000 UNIT CAP/TAB PO SCH (10:00)
[2021-10-15 10:06] LABS: Albumin 1.9 g/dL (3.4-5.0); Calcium 7.6 mg/dL (8.5-10.1); Magnesium 3.8 mg/dL (1.6-2.6); Potassium 5.4 mmol/L (3.5-5.1)
[2021-10-15 10:08] LABS: BUN/Creatinine Ratio 38.6; Bilirubin, Total 0.6 mg/dL (0.2-1.0); Phosphorus 4.2 mg/dL (2.5-4.90); Total Protein 4.8 g/dL (6.4-8.2)
[2021-10-15 10:12] LABS: Basophils # (auto) 0.2 10 ^3/uL (0-0.2); Basophils % (auto) 1.1 % (0.0-2.0); Eosinophils # (auto) 0 10 ^3/uL (0-0.8); Hematocrit 41.3 % (41.0-53.0); Hemoglobin 13.4 g/dL (13.5-17.5); INR 3.57 (0.9-1.15); Lymphocytes # (auto) 0.4 10 ^3/uL (0.4-5.4); Lymphocytes % (auto) 2.1 % (10.0-50.0); Mean Corpuscular Hemoglobin 29.5 pg (28.0-32.0); Mean Corpuscular Hgb Conc. 32.5 g/dL (32.0-36.0); Mean Corpuscular Volume 90.8 fL (80.0-100.0); Monocytes # (auto) 1.2 10 ^3/uL (0-1.3); Monocytes % (auto) 6.5 % (0.0-12.0); Neutrophils % (auto) 90.3 % (37.0-80.0); Nucleated Red Blood Cells % 0.1 %; Partial Thromboplastin Time 49.5 sec (23.6-33.0); Red Blood Cells 4.55 10^6/uL (4.5-5.90); Red Cell Distribution Width 15.2 % (11.8-14.3); White Blood Cell 18.9 10^3/uL (4.4-10.8)
[2021-10-15] MEDS: NOREPINEPHRINE 8 MG/250ML KIT 250 ML IV SCH (11:02)
[2021-10-15] MEDS: SODIUM ZIRCONIUM CYCL 10 GM PAK PO SCH ×2 (11:27→14:19)
[2021-10-15] MEDS ORDERED: VANCOMYCIN 500 MG in D5W 5% 100 ML IV ONE (13:00)
[2021-10-15] MEDS: MICAFUNGIN SODIUM 100 MG in SODIUM CHL 0.9% 100 ML IV SCH (17:30)
[2021-10-15] MEDS ORDERED: AMINO ACID INFUSION IN D10W 1,000 ML IV NR (20:00)
[2021-10-15] MEDS: AMITRIPTYLINE HCL 10 MG TAB PO SCH (22:20)
[2021-10-15] MEDS ORDERED: SODIUM BICARBONATE 50ML VIAL 150 ML in D5W 5% 1,000 ML IV ONE (23:15)
[2021-10-16] VITALS (103 sets, daily range): BP systolic 88–145; BP diastolic 27–54
[2021-10-16] MEDS: SODIUM ZIRCONIUM CYCL 10 GM PAK PO SCH ×3 (00:01→14:00)
[2021-10-16] MEDS: InsuLIN REG 1unit/0.01ml Soln (100units/ml) SC SCH ×4 (00:49→17:47)
[2021-10-16] MEDS: MEROPENEM 500MG IVPB 50 ML IV SCH ×2 (02:01→14:00)
[2021-10-16] MEDS ORDERED: SODIUM BICARBONATE 8.4 % INJ 50ML VIAL IV ONE ×2 (02:18→10:00)
[2021-10-16 04:44] LABS: Basophils # (auto) 0 10 ^3/uL (0-0.2); Basophils % (auto) 0.2 % (0.0-2.0); Eosinophils # (auto) 0 10 ^3/uL (0-0.8); Hemoglobin 12.5 g/dL (13.5-17.5); Lymphocytes # (auto) 0.3 10 ^3/uL (0.4-5.4); Lymphocytes % (auto) 2.4 % (10.0-50.0); Mean Corpuscular Hemoglobin 29.1 pg (28.0-32.0); Mean Corpuscular Hgb Conc. 32.1 g/dL (32.0-36.0); Mean Corpuscular Volume 90.6 fL (80.0-100.0); Monocytes # (auto) 0.8 10 ^3/uL (0-1.3); Monocytes % (auto) 6.1 % (0.0-12.0); Neutrophils # (auto) 12.5 10 ^3/uL (1.6-8.6); Neutrophils % (auto) 91.3 % (37.0-80.0); Nucleated Red Blood Cells % 0.1 %; Red Cell Distribution Width 15.1 % (11.8-14.3); White Blood Cell 13.7 10^3/uL (4.4-10.8)
[2021-10-16 05:02] LABS: INR 2.39 (0.9-1.15)
[2021-10-16 05:18] LABS: Alanine Aminotransferase 67 U/L (16-61); Albumin 1.6 g/dL (3.4-5.0); Anion Gap 8 (5-15); Aspartate Aminotransferase 45 U/L (15-37); BUN/Creatinine Ratio 40.6; Calcium 7.7 mg/dL (8.5-10.1); Carbon Dioxide 19 mmol/L (21-32); Chloride 110 mmol/L (98-107); GFR African American 25 mL/min; GFR Non-African American 21 mL/min; Glucose 218 mg/dL (74-106); Magnesium 3.4 mg/dL (1.6-2.6); Sodium 137 mmol/L (136-145)
[2021-10-16 05:20] LABS: Alkaline Phosphatase 50 U/L (45-117); Bilirubin, Total 0.7 mg/dL (0.2-1.0); Phosphorus 4.4 mg/dL (2.5-4.90)
[2021-10-16] MEDS: ACCU-CHEK COMFORT CURVE STRIP VI SCH ×4 (05:35→17:47)
[2021-10-16 06:05] LABS: Blood Urea Nitrogen 125 mg/dL (7-18); Potassium 5.8 mmol/L (3.5-5.1)
[2021-10-16] MEDS: BUDESONIDE (INHALATION) 0.5 MG/2 ML NEB NEB SCH ×2 (08:15→22:21)
[2021-10-16] MEDS: ALBUTEROL SULF 2.5 MG/0.5ML(0.5%) NEB SOLN NEB PRN ×2 (08:15→22:21)
[2021-10-16] MEDS ORDERED: CALCIUM GLUC 1,000mg/50ml-NS 50 ML IV ONE (09:15)
[2021-10-16] MEDS ORDERED: ALBUTEROL SULF 2.5 MG/0.5ML(0.5%) NEB SOLN NEB ONE (09:15)
[2021-10-16] MEDS: AMIODARONE HCL 200 MG TAB PO SCH ×2 (10:00→22:24)
[2021-10-16] MEDS ORDERED: SODIUM CHL 0.9% 1000 ML BAG XX ONE (10:00)
[2021-10-16] MEDS: FAMOTIDINE 20 MG TAB PO SCH (10:00)
[2021-10-16] MEDS ORDERED: InsuLIN REG 1unit/0.01ml Soln (100units/ml) IV ONE (10:00)
[2021-10-16] MEDS ORDERED: VANCOMYCIN 500 MG in D5W 5% 100 ML IV ONE ×2 (10:00→17:00)
[2021-10-16] MEDS: CHOLECALCIFEROL (VITD3) 2,000 UNIT CAP/TAB PO SCH (10:00)
[2021-10-16] MEDS: DIGOXIN 0.125 MG TAB PO SCH (10:00)
[2021-10-16] MEDS: CLOPIDOGREL BISULFATE 75 MG TAB PO SCH (10:00)
[2021-10-16] MEDS ORDERED: FUROSEMIDE 20 MG/2 ML VIAL IV ONE (10:15)
[2021-10-16] MEDS: DexAMETHasone SOD PHOS 4 MG/1ML SDV INJ IV SCH (11:26)
[2021-10-16] MEDS: ALBUMIN 25% 100 ML IV SCH ×2 (11:26→18:40)
[2021-10-16] MEDS: fentaNYL Drip 2500mCg/250mlNS 250 ML IV SCH ×2 (11:36→15:10)
[2021-10-16] MEDS: PROPOFOL 100 ML IV SCH (15:00)
[2021-10-16] MEDS: MICAFUNGIN SODIUM 100 MG in SODIUM CHL 0.9% 100 ML IV SCH (16:00)
[2021-10-16] MEDS: NOREPINEPHRINE 8 MG/250ML KIT 250 ML IV SCH (17:32)
[2021-10-16] MEDS ORDERED: AMINO ACID INFUSION IN D10W 1,000 ML IV NR (20:00)
[2021-10-16] MEDS: AMITRIPTYLINE HCL 10 MG TAB PO SCH (22:24)
[2021-10-17] VITALS (102 sets, daily range): BP systolic 103–141; BP diastolic 36–70
[2021-10-17] MEDS: ACCU-CHEK COMFORT CURVE STRIP VI SCH ×4 (00:23→18:08)
[2021-10-17] MEDS: InsuLIN REG 1unit/0.01ml Soln (100units/ml) SC SCH ×4 (00:23→18:00)
[2021-10-17] MEDS: PROPOFOL 100 ML IV SCH ×2 (00:24→06:58)
[2021-10-17] MEDS: MEROPENEM 500MG IVPB 50 ML IV SCH ×2 (02:00→14:24)
[2021-10-17] MEDS: ALBUMIN 25% 100 ML IV SCH (02:44)
[2021-10-17] MEDS: fentaNYL Drip 2500mCg/250mlNS 250 ML IV SCH (02:56)
[2021-10-17 04:39] LABS: Albumin 2.5 g/dL (3.4-5.0); BUN/Creatinine Ratio 36.7; Calcium 7.4 mg/dL (8.5-10.1); Magnesium 2.9 mg/dL (1.6-2.6); Potassium 4.2 mmol/L (3.5-5.1)
[2021-10-17 04:48] LABS: Bilirubin, Total 0.8 mg/dL (0.2-1.0); Phosphorus 3.2 mg/dL (2.5-4.90)
[2021-10-17] MEDS: NOREPINEPHRINE 8 MG/250ML KIT 250 ML IV SCH (05:58)
[2021-10-17] MEDS: ALBUTEROL SULF 2.5 MG/0.5ML(0.5%) NEB SOLN NEB PRN ×2 (06:11→22:44)
[2021-10-17] MEDS: BUDESONIDE (INHALATION) 0.5 MG/2 ML NEB NEB SCH ×2 (06:11→22:44)
[2021-10-17] MEDS: DexAMETHasone SOD PHOS 4 MG/1ML SDV INJ IV SCH (10:46)
[2021-10-17] MEDS: AMIODARONE HCL 200 MG TAB PO SCH (10:47)
[2021-10-17] MEDS: FAMOTIDINE 20 MG TAB PO SCH (10:47)
[2021-10-17] MEDS: DIGOXIN 0.125 MG TAB PO SCH (10:58)
[2021-10-17 11:30] LABS: Hepatitis A Ab IgM Negative
[2021-10-17 11:31] LABS: Hepatitis B Core IgM Negative; Hepatitis C Antibody Negative (Negative)
[2021-10-17] MEDS: CLOPIDOGREL BISULFATE 75 MG TAB PO SCH (11:46)
[2021-10-17] MEDS: VANCOMYCIN 500 MG in D5W 5% 100 ML IV SCH (12:03)
[2021-10-17] MEDS: CHOLECALCIFEROL (VITD3) 2,000 UNIT CAP/TAB PO SCH (12:04)
[2021-10-17] MEDS: MICAFUNGIN SODIUM 100 MG in SODIUM CHL 0.9% 100 ML IV SCH (16:12)
[2021-10-17] MEDS ORDERED: AMINO ACID INFUSION IN D10W 1,000 ML IV NR (20:00)
[2021-10-17] MEDS: AMITRIPTYLINE HCL 10 MG TAB PO SCH (21:55)
[2021-10-18] VITALS (102 sets, daily range): BP systolic 100–180; BP diastolic 33–74
[2021-10-18] MEDS: ACCU-CHEK COMFORT CURVE STRIP VI SCH ×4 (00:18→18:31)
[2021-10-18] MEDS: MEROPENEM 500MG IVPB 50 ML IV SCH ×2 (02:29→15:27)
[2021-10-18] MEDS: NOREPINEPHRINE 8 MG/250ML KIT 250 ML IV SCH (03:41)
[2021-10-18 04:39] LABS: Potassium 5.2 mmol/L (3.5-5.1)
[2021-10-18 04:48] LABS: Albumin 2.1 g/dL (3.4-5.0); BUN/Creatinine Ratio 46.8; Calcium 8.2 mg/dL (8.5-10.1); Magnesium 3.1 mg/dL (1.6-2.6)
[2021-10-18 04:50] LABS: Bilirubin, Total 0.9 mg/dL (0.2-1.0); Phosphorus 4.3 mg/dL (2.5-4.90); Total Protein 4.9 g/dL (6.4-8.2)
[2021-10-18] MEDS: InsuLIN REG 1unit/0.01ml Soln (100units/ml) SC SCH ×4 (06:00→18:31)
[2021-10-18] MEDS: BUDESONIDE (INHALATION) 0.5 MG/2 ML NEB NEB SCH ×2 (07:12→22:31)
[2021-10-18] MEDS: ALBUTEROL SULF 2.5 MG/0.5ML(0.5%) NEB SOLN NEB PRN ×2 (07:12→22:31)
[2021-10-18] MEDS: FAMOTIDINE 20 MG TAB PO SCH (10:54)
[2021-10-18] MEDS: CLOPIDOGREL BISULFATE 75 MG TAB PO SCH (10:54)
[2021-10-18] MEDS: DexAMETHasone SOD PHOS 4 MG/1ML SDV INJ IV SCH (10:54)
[2021-10-18] MEDS: DIGOXIN 0.125 MG TAB PO SCH (10:54)
[2021-10-18] MEDS: fentaNYL Drip 2500mCg/250mlNS 250 ML IV SCH ×2 (11:38→19:40)
[2021-10-18] MEDS: PROPOFOL 100 ML IV SCH ×2 (11:38→20:36)
[2021-10-18] MEDS: VANCOMYCIN 500 MG in D5W 5% 100 ML IV SCH (12:13)
[2021-10-18] MEDS ORDERED: SODIUM ZIRCONIUM CYCL 10 GM PAK PO ONE (13:00)
[2021-10-18] MEDS: CHOLECALCIFEROL (VITD3) 2,000 UNIT CAP/TAB PO SCH (14:38)
[2021-10-18] MEDS: MICAFUNGIN SODIUM 100 MG in SODIUM CHL 0.9% 100 ML IV SCH (18:10)
[2021-10-18] MEDS: SODIUM ZIRCONIUM CYCL 10 GM PAK PO SCH (21:57)
[2021-10-18] MEDS: AMITRIPTYLINE HCL 10 MG TAB PO SCH (21:57)
[2021-10-19] VITALS (101 sets, daily range): BP systolic 98–178; BP diastolic 33–89
[2021-10-19] MEDS: ACCU-CHEK COMFORT CURVE STRIP VI SCH ×4 (00:11→17:52)
[2021-10-19] MEDS: fentaNYL Drip 2500mCg/250mlNS 250 ML IV SCH ×2 (00:50→20:41)
[2021-10-19] MEDS: NOREPINEPHRINE 8 MG/250ML KIT 250 ML IV SCH (04:00)
[2021-10-19 04:59] LABS: Basophils # (auto) 0 10 ^3/uL (0-0.2); Eosinophils # (auto) 0 10 ^3/uL (0-0.8); Hematocrit 36.4 % (41.0-53.0); Lymphocytes # (auto) 0.5 10 ^3/uL (0.4-5.4); Lymphocytes % (auto) 2.3 % (10.0-50.0); Mean Corpuscular Hemoglobin 29.5 pg (28.0-32.0); Mean Corpuscular Hgb Conc. 32.8 g/dL (32.0-36.0); Mean Corpuscular Volume 89.7 fL (80.0-100.0); Monocytes % (auto) 4.3 % (0.0-12.0); Neutrophils % (auto) 93.4 % (37.0-80.0); Nucleated Red Blood Cells % 0.1 %; Red Blood Cells 4.06 10^6/uL (4.5-5.90); Red Cell Distribution Width 14.8 % (11.8-14.3); White Blood Cell 23.5 10^3/uL (4.4-10.8)
[2021-10-19 05:21] LABS: INR 1.41 (0.9-1.15); Partial Thromboplastin Time 31.9 sec (23.6-33.0)
[2021-10-19 05:22] LABS: Albumin 2.4 g/dL (3.4-5.0); Calcium 8.7 mg/dL (8.5-10.1); Potassium 5.1 mmol/L (3.5-5.1)
[2021-10-19 05:30] LABS: BUN/Creatinine Ratio 53.7; Total Protein 5.8 g/dL (6.4-8.2)
[2021-10-19] MEDS: InsuLIN REG 1unit/0.01ml Soln (100units/ml) SC SCH ×4 (05:45→17:52)
[2021-10-19] MEDS: SODIUM ZIRCONIUM CYCL 10 GM PAK PO SCH ×3 (05:45→21:10)
[2021-10-19] MEDS: BUDESONIDE (INHALATION) 0.5 MG/2 ML NEB NEB SCH ×2 (06:40→21:55)
[2021-10-19] MEDS: ALBUTEROL SULF 2.5 MG/0.5ML(0.5%) NEB SOLN NEB PRN ×2 (06:41→21:55)
[2021-10-19] MEDS: PROPOFOL 100 ML IV SCH (08:21)
[2021-10-19] MEDS ORDERED: VANCOMYCIN PER PHARMACY 0 MG IV SCH (10:15)
[2021-10-19] MEDS: DexAMETHasone SOD PHOS 4 MG/1ML SDV INJ IV SCH (10:22)
[2021-10-19] MEDS: DIGOXIN 0.125 MG TAB PO SCH (10:22)
[2021-10-19] MEDS: FAMOTIDINE 20 MG TAB PO SCH (10:23)
[2021-10-19] MEDS: CHOLECALCIFEROL (VITD3) 2,000 UNIT CAP/TAB PO SCH (10:23)
[2021-10-19] MEDS: CLOPIDOGREL BISULFATE 75 MG TAB PO SCH (10:23)
[2021-10-19] MEDS ORDERED: PANTOPRAZOLE 40 MG/10 ML VIAL INJ IV ONE (14:15)
[2021-10-19 15:51] LABS: Urine Amorphous Crystal FEW /hpf (None Seen); Urine Bacteria FEW /hpf (None Seen); Urine Blood 3+ /uL (Negative); Urine Hyaline Cast FEW /lpf (0 - 2); Urine Mucus FEW (None Seen); Urine Specific Gravity 1.019 (1.001-1.035); Urine WBC 21 /hpf (0 - 3)
[2021-10-19] MEDS: VANCOMYCIN 750mg/250ml 250 ML IV SCH (15:56)
[2021-10-19] MEDS: MICAFUNGIN SODIUM 100 MG in SODIUM CHL 0.9% 100 ML IV SCH (17:52)
[2021-10-19] MEDS: AMITRIPTYLINE HCL 10 MG TAB PO SCH (21:00)
[2021-10-19] MEDS: PANTOPRAZOLE 40 MG/10 ML VIAL INJ IV SCH (21:10)
[2021-10-19] MEDS: MEROPENEM 1GM IVPB 100 ML IV SCH (23:00)
[2021-10-20] VITALS (104 sets, daily range): BP systolic 100–198; BP diastolic 38–91
[2021-10-20] MEDS: PROPOFOL 100 ML IV SCH ×3 (02:01→21:00)
[2021-10-20] MEDS: NOREPINEPHRINE 8 MG/250ML KIT 250 ML IV SCH (04:00)
[2021-10-20 04:28] LABS: Basophils # (auto) 0 10 ^3/uL (0-0.2); Basophils % (auto) 0.1 % (0.0-2.0); Eosinophils # (auto) 0 10 ^3/uL (0-0.8); Hematocrit 32.3 % (41.0-53.0); Hemoglobin 10.5 g/dL (13.5-17.5); Lymphocytes # (auto) 0.4 10 ^3/uL (0.4-5.4); Lymphocytes % (auto) 1.9 % (10.0-50.0); Mean Corpuscular Hemoglobin 29.3 pg (28.0-32.0); Mean Corpuscular Hgb Conc. 32.5 g/dL (32.0-36.0); Mean Corpuscular Volume 90.2 fL (80.0-100.0); Monocytes # (auto) 1.2 10 ^3/uL (0-1.3); Monocytes % (auto) 6.1 % (0.0-12.0); Neutrophils # (auto) 18.5 10 ^3/uL (1.6-8.6); Neutrophils % (auto) 91.9 % (37.0-80.0); Red Blood Cells 3.58 10^6/uL (4.5-5.90); Red Cell Distribution Width 14.8 % (11.8-14.3); White Blood Cell 20.2 10^3/uL (4.4-10.8)
[2021-10-20 04:53] LABS: Potassium 4.9 mmol/L (3.5-5.1)
[2021-10-20 05:03] LABS: BUN/Creatinine Ratio 45.1; Calcium 8.5 mg/dL (8.5-10.1)
[2021-10-20] MEDS: InsuLIN REG 1unit/0.01ml Soln (100units/ml) SC SCH ×4 (05:49→17:36)
[2021-10-20] MEDS: ACCU-CHEK COMFORT CURVE STRIP VI SCH ×4 (05:49→17:37)
[2021-10-20] MEDS: SODIUM ZIRCONIUM CYCL 10 GM PAK PO SCH ×2 (05:49→14:32)
[2021-10-20] MEDS: ALBUTEROL SULF 2.5 MG/0.5ML(0.5%) NEB SOLN NEB PRN ×2 (06:08→23:36)
[2021-10-20] MEDS: BUDESONIDE (INHALATION) 0.5 MG/2 ML NEB NEB SCH ×2 (06:08→23:36)
[2021-10-20] MEDS: PANTOPRAZOLE 40 MG/10 ML VIAL INJ IV SCH ×2 (09:56→21:15)
[2021-10-20] MEDS: DexAMETHasone SOD PHOS 4 MG/1ML SDV INJ IV SCH (09:57)
[2021-10-20] MEDS: CHOLECALCIFEROL (VITD3) 2,000 UNIT CAP/TAB PO SCH (09:57)
[2021-10-20] MEDS: MEROPENEM 1GM IVPB 100 ML IV SCH ×2 (09:57→23:18)
[2021-10-20] MEDS: DIGOXIN 0.125 MG TAB PO SCH (09:58)
[2021-10-20] MEDS: CLOPIDOGREL BISULFATE 75 MG TAB PO SCH (09:59)
[2021-10-20] MEDS: fentaNYL Drip 2500mCg/250mlNS 250 ML IV SCH (14:29)
[2021-10-20] MEDS: FREE WATER GT SCH ×3 (14:32→20:49)
[2021-10-20] MEDS: VANCOMYCIN 750mg/250ml 250 ML IV SCH (17:36)
[2021-10-20] MEDS: MICAFUNGIN SODIUM 100 MG in SODIUM CHL 0.9% 100 ML IV SCH (18:23)
[2021-10-20] MEDS: AMITRIPTYLINE HCL 10 MG TAB PO SCH (21:15)
[2021-10-21] VITALS (100 sets, daily range): BP systolic 105–196; BP diastolic 25–91
[2021-10-21] MEDS: FREE WATER GT SCH ×6 (01:54→21:57)
[2021-10-21] MEDS: PROPOFOL 100 ML IV SCH ×3 (03:26→13:32)
[2021-10-21] MEDS: NOREPINEPHRINE 8 MG/250ML KIT 250 ML IV SCH (03:26)
[2021-10-21] MEDS: fentaNYL Drip 2500mCg/250mlNS 250 ML IV SCH (05:15)
[2021-10-21] MEDS: InsuLIN REG 1unit/0.01ml Soln (100units/ml) SC SCH ×4 (06:00→17:49)
[2021-10-21] MEDS: ACCU-CHEK COMFORT CURVE STRIP VI SCH ×4 (06:10→17:49)
[2021-10-21] MEDS: BUDESONIDE (INHALATION) 0.5 MG/2 ML NEB NEB SCH ×2 (06:17→22:21)
[2021-10-21] MEDS: ALBUTEROL SULF 2.5 MG/0.5ML(0.5%) NEB SOLN NEB PRN (06:17)
[2021-10-21 09:59] LABS: Basophils # (auto) 0 10 ^3/uL (0-0.2); Basophils % (auto) 0.2 % (0.0-2.0); Eosinophils # (auto) 0.1 10 ^3/uL (0-0.8); Eosinophils % (auto) 0.7 % (0.0-7.0); Hematocrit 34.2 % (41.0-53.0); Hemoglobin 11.1 g/dL (13.5-17.5); Lymphocytes # (auto) 0.9 10 ^3/uL (0.4-5.4); Lymphocytes % (auto) 4.5 % (10.0-50.0); Mean Corpuscular Hemoglobin 29.3 pg (28.0-32.0); Mean Corpuscular Hgb Conc. 32.4 g/dL (32.0-36.0); Mean Corpuscular Volume 90.3 fL (80.0-100.0); Monocytes # (auto) 0.8 10 ^3/uL (0-1.3); Monocytes % (auto) 4.2 % (0.0-12.0); Neutrophils # (auto) 17.8 10 ^3/uL (1.6-8.6); Neutrophils % (auto) 90.4 % (37.0-80.0); Red Blood Cells 3.78 10^6/uL (4.5-5.90); Red Cell Distribution Width 14.6 % (11.8-14.3); White Blood Cell 19.7 10^3/uL (4.4-10.8)
[2021-10-21] MEDS: PANTOPRAZOLE 40 MG/10 ML VIAL INJ IV SCH ×2 (10:08→21:57)
[2021-10-21] MEDS: CHOLECALCIFEROL (VITD3) 2,000 UNIT CAP/TAB PO SCH (10:08)
[2021-10-21] MEDS: DexAMETHasone SOD PHOS 4 MG/1ML SDV INJ IV SCH (10:09)
[2021-10-21] MEDS: DIGOXIN 0.125 MG TAB PO SCH (10:09)
[2021-10-21] MEDS: CLOPIDOGREL BISULFATE 75 MG TAB PO SCH (10:09)
[2021-10-21 10:36] LABS: Potassium 4.8 mmol/L (3.5-5.1)
[2021-10-21 10:42] LABS: Albumin 1.9 g/dL (3.4-5.0); BUN/Creatinine Ratio 42.2; Bilirubin, Total 0.9 mg/dL (0.2-1.0); Calcium 9.2 mg/dL (8.5-10.1); Total Protein 5.4 g/dL (6.4-8.2)
[2021-10-21] MEDS: MEROPENEM 1GM IVPB 100 ML IV SCH ×2 (11:00→23:30)
[2021-10-21] MEDS: VANCOMYCIN 750mg/250ml 250 ML IV SCH (15:00)
[2021-10-21] MEDS ORDERED: METOPROLOL TARTRATE 50 MG TAB PO ONE (15:45)
[2021-10-21] MEDS ORDERED: LACTULOSE 20Gm/30ML SOLN PO ONE (15:45)
[2021-10-21] MEDS ORDERED: METOCLOPRAMIDE HCL 5MG/ml INJ 2ml VIAL IV ONE (15:45)
[2021-10-21] MEDS: MICAFUNGIN SODIUM 100 MG in SODIUM CHL 0.9% 100 ML IV SCH (17:00)
[2021-10-21] MEDS: LABETALOL HCL 5 MG/ML 4ML SYRINGE IV PRN (18:36)
[2021-10-21] MEDS: METOCLOPRAMIDE HCL 5MG/ml INJ 2ml VIAL IV SCH (21:57)
[2021-10-21] MEDS: METOPROLOL TARTRATE 50 MG TAB PO SCH (21:58)
[2021-10-21] MEDS: LACTULOSE 20Gm/30ML SOLN PO SCH (21:58)
[2021-10-21] MEDS: AMITRIPTYLINE HCL 10 MG TAB PO SCH (21:58)
[2021-10-22] VITALS (101 sets, daily range): BP systolic 78–192; BP diastolic 27–94
[2021-10-22] MEDS: ACCU-CHEK COMFORT CURVE STRIP VI SCH ×4 (00:07→18:27)
[2021-10-22] MEDS: FREE WATER GT SCH ×6 (02:00→22:25)
[2021-10-22] MEDS: PROPOFOL 100 ML IV SCH (02:50)
[2021-10-22] MEDS: fentaNYL Drip 2500mCg/250mlNS 250 ML IV SCH (02:51)
[2021-10-22] MEDS: LABETALOL HCL 5 MG/ML 4ML SYRINGE IV PRN (03:56)
[2021-10-22] MEDS: NOREPINEPHRINE 8 MG/250ML KIT 250 ML IV SCH (04:00)
[2021-10-22 04:55] LABS: Basophils # (auto) 0 10 ^3/uL (0-0.2); Basophils % (auto) 0.2 % (0.0-2.0); Eosinophils # (auto) 0.1 10 ^3/uL (0-0.8); Eosinophils % (auto) 0.5 % (0.0-7.0); Hematocrit 30.8 % (41.0-53.0); Hemoglobin 10.1 g/dL (13.5-17.5); Lymphocytes # (auto) 0.4 10 ^3/uL (0.4-5.4); Lymphocytes % (auto) 2.5 % (10.0-50.0); Mean Corpuscular Hemoglobin 29.7 pg (28.0-32.0); Mean Corpuscular Hgb Conc. 32.7 g/dL (32.0-36.0); Mean Corpuscular Volume 90.7 fL (80.0-100.0); Monocytes # (auto) 0.7 10 ^3/uL (0-1.3); Monocytes % (auto) 4.3 % (0.0-12.0); Neutrophils # (auto) 15.7 10 ^3/uL (1.6-8.6); Neutrophils % (auto) 92.5 % (37.0-80.0); Red Blood Cells 3.39 10^6/uL (4.5-5.90); Red Cell Distribution Width 14.5 % (11.8-14.3)
[2021-10-22 05:11] LABS: BUN/Creatinine Ratio 42.5; Calcium 8.6 mg/dL (8.5-10.1)
[2021-10-22] MEDS: METOCLOPRAMIDE HCL 5MG/ml INJ 2ml VIAL IV SCH ×3 (05:49→22:00)
[2021-10-22] MEDS: InsuLIN REG 1unit/0.01ml Soln (100units/ml) SC SCH ×4 (05:50→18:00)
[2021-10-22] MEDS: BUDESONIDE (INHALATION) 0.5 MG/2 ML NEB NEB SCH ×2 (06:17→21:02)
[2021-10-22] MEDS: CLOPIDOGREL BISULFATE 75 MG TAB PO SCH (10:04)
[2021-10-22] MEDS: PANTOPRAZOLE 40 MG/10 ML VIAL INJ IV SCH ×2 (10:04→22:25)
[2021-10-22] MEDS: METOPROLOL TARTRATE 50 MG TAB PO SCH ×2 (10:04→22:26)
[2021-10-22] MEDS: LACTULOSE 20Gm/30ML SOLN PO SCH ×2 (10:04→22:00)
[2021-10-22] MEDS: DexAMETHasone SOD PHOS 4 MG/1ML SDV INJ IV SCH (10:04)
[2021-10-22] MEDS: CHOLECALCIFEROL (VITD3) 2,000 UNIT CAP/TAB PO SCH (10:04)
[2021-10-22] MEDS: DIGOXIN 0.125 MG TAB PO SCH (10:05)
[2021-10-22] MEDS: MEROPENEM 1GM IVPB 100 ML IV SCH ×2 (11:00→23:53)
[2021-10-22] MEDS: MICAFUNGIN SODIUM 100 MG in SODIUM CHL 0.9% 100 ML IV SCH (17:00)
[2021-10-22] MEDS: AMITRIPTYLINE HCL 10 MG TAB PO SCH (22:25)
[2021-10-23] VITALS (95 sets, daily range): BP systolic 86–206; BP diastolic 29–122
[2021-10-23] MEDS: ACCU-CHEK COMFORT CURVE STRIP VI SCH ×4 (00:28→18:20)
[2021-10-23] MEDS: FREE WATER GT SCH ×6 (02:00→22:12)
[2021-10-23] MEDS: NOREPINEPHRINE 8 MG/250ML KIT 250 ML IV SCH (04:00)
[2021-10-23 04:23] LABS: Basophils # (auto) 0.1 10 ^3/uL (0-0.2); Basophils % (auto) 0.4 % (0.0-2.0); Eosinophils # (auto) 0.1 10 ^3/uL (0-0.8); Eosinophils % (auto) 0.5 % (0.0-7.0); Hematocrit 34.3 % (41.0-53.0); Hemoglobin 11.2 g/dL (13.5-17.5); Lymphocytes # (auto) 0.6 10 ^3/uL (0.4-5.4); Lymphocytes % (auto) 3.2 % (10.0-50.0); Mean Corpuscular Hemoglobin 29.2 pg (28.0-32.0); Mean Corpuscular Hgb Conc. 32.7 g/dL (32.0-36.0); Mean Corpuscular Volume 89.5 fL (80.0-100.0); Monocytes # (auto) 0.7 10 ^3/uL (0-1.3); Monocytes % (auto) 4.2 % (0.0-12.0); Neutrophils # (auto) 15.8 10 ^3/uL (1.6-8.6); Neutrophils % (auto) 91.7 % (37.0-80.0); Nucleated Red Blood Cells % 0.1 %; Red Blood Cells 3.84 10^6/uL (4.5-5.90); Red Cell Distribution Width 14.7 % (11.8-14.3); White Blood Cell 17.2 10^3/uL (4.4-10.8)
[2021-10-23 04:37] LABS: Calcium 8.7 mg/dL (8.5-10.1); Potassium 4.6 mmol/L (3.5-5.1)
[2021-10-23] MEDS: METOCLOPRAMIDE HCL 5MG/ml INJ 2ml VIAL IV SCH ×3 (05:44→22:00)
[2021-10-23] MEDS: InsuLIN REG 1unit/0.01ml Soln (100units/ml) SC SCH ×4 (05:44→18:20)
[2021-10-23] MEDS: BUDESONIDE (INHALATION) 0.5 MG/2 ML NEB NEB SCH ×2 (06:36→22:12)
[2021-10-23] MEDS: LACTULOSE 20Gm/30ML SOLN PO SCH ×2 (10:00→22:00)
[2021-10-23] MEDS: PANTOPRAZOLE 40 MG/10 ML VIAL INJ IV SCH ×2 (10:24→22:11)
[2021-10-23] MEDS: DexAMETHasone SOD PHOS 4 MG/1ML SDV INJ IV SCH (10:24)
[2021-10-23] MEDS: DIGOXIN 0.125 MG TAB PO SCH (10:25)
[2021-10-23] MEDS: METOPROLOL TARTRATE 50 MG TAB PO SCH ×2 (10:26→22:13)
[2021-10-23] MEDS: CLOPIDOGREL BISULFATE 75 MG TAB PO SCH (10:26)
[2021-10-23] MEDS: CHOLECALCIFEROL (VITD3) 2,000 UNIT CAP/TAB PO SCH (10:26)
[2021-10-23] MEDS: fentaNYL Drip 2500mCg/250mlNS 250 ML IV SCH (11:00)
[2021-10-23] MEDS: MEROPENEM 1GM IVPB 100 ML IV SCH ×2 (11:06→23:10)
[2021-10-23] MEDS: PROPOFOL 100 ML IV SCH ×2 (16:33→21:00)
[2021-10-23] MEDS: MICAFUNGIN SODIUM 100 MG in SODIUM CHL 0.9% 100 ML IV SCH (17:11)
[2021-10-24] VITALS (102 sets, daily range): BP systolic 78–176; BP diastolic 12–81
[2021-10-24] MEDS: ACCU-CHEK COMFORT CURVE STRIP VI SCH ×4 (00:02→12:16)
[2021-10-24] MEDS: FREE WATER GT SCH ×5 (02:00→22:18)
[2021-10-24] MEDS: PROPOFOL 100 ML IV SCH ×2 (03:00→14:33)
[2021-10-24] MEDS: NOREPINEPHRINE 8 MG/250ML KIT 250 ML IV SCH ×2 (04:00→09:15)
[2021-10-24 04:44] LABS: Basophils # (auto) 0 10 ^3/uL (0-0.2); Basophils % (auto) 0.3 % (0.0-2.0); Eosinophils # (auto) 0.1 10 ^3/uL (0-0.8); Eosinophils % (auto) 0.4 % (0.0-7.0); Hematocrit 32.5 % (41.0-53.0); Hemoglobin 10.4 g/dL (13.5-17.5); Lymphocytes # (auto) 0.6 10 ^3/uL (0.4-5.4); Mean Corpuscular Hgb Conc. 32.1 g/dL (32.0-36.0); Mean Corpuscular Volume 90.4 fL (80.0-100.0); Monocytes # (auto) 0.5 10 ^3/uL (0-1.3); Monocytes % (auto) 3.8 % (0.0-12.0); Neutrophils # (auto) 13.2 10 ^3/uL (1.6-8.6); Neutrophils % (auto) 91.5 % (37.0-80.0); Nucleated Red Blood Cells % 0.1 %; Red Blood Cells 3.59 10^6/uL (4.5-5.90); Red Cell Distribution Width 14.3 % (11.8-14.3); White Blood Cell 14.4 10^3/uL (4.4-10.8)
[2021-10-24 04:52] LABS: BUN/Creatinine Ratio 39.9; Calcium 8.5 mg/dL (8.5-10.1); Potassium 4.8 mmol/L (3.5-5.1)
[2021-10-24] MEDS: METOCLOPRAMIDE HCL 5MG/ml INJ 2ml VIAL IV SCH ×3 (05:34→22:00)
[2021-10-24] MEDS: InsuLIN REG 1unit/0.01ml Soln (100units/ml) SC SCH ×3 (05:35→12:00)
[2021-10-24] MEDS: Glucerna 1.2 Cal 1Liter BOTTLE GT SCH (05:58)
[2021-10-24] MEDS: fentaNYL Drip 2500mCg/250mlNS 250 ML IV SCH (06:00)
[2021-10-24] MEDS: BUDESONIDE (INHALATION) 0.5 MG/2 ML NEB NEB SCH ×2 (06:47→19:30)
[2021-10-24] MEDS: DexAMETHasone SOD PHOS 4 MG/1ML SDV INJ IV SCH (09:30)
[2021-10-24] MEDS: PANTOPRAZOLE 40 MG/10 ML VIAL INJ IV SCH ×2 (09:31→22:24)
[2021-10-24] MEDS: LACTULOSE 20Gm/30ML SOLN PO SCH ×2 (09:32→22:23)
[2021-10-24] MEDS: METOPROLOL TARTRATE 50 MG TAB PO SCH ×2 (09:33→22:00)
[2021-10-24] MEDS: DIGOXIN 0.125 MG TAB PO SCH (09:33)
[2021-10-24] MEDS: CLOPIDOGREL BISULFATE 75 MG TAB PO SCH (09:34)
[2021-10-24] MEDS: CHOLECALCIFEROL (VITD3) 2,000 UNIT CAP/TAB PO SCH (09:34)
[2021-10-24] MEDS: MEROPENEM 1GM IVPB 100 ML IV SCH ×2 (11:29→22:24)
[2021-10-24] MEDS: MICAFUNGIN SODIUM 100 MG in SODIUM CHL 0.9% 100 ML IV SCH (17:27)
[2021-10-25] VITALS (97 sets, daily range): BP systolic 81–177; BP diastolic 22–84
[2021-10-25] MEDS: ACCU-CHEK COMFORT CURVE STRIP VI SCH ×4 (00:21→18:25)
[2021-10-25] MEDS: InsuLIN REG 1unit/0.01ml Soln (100units/ml) SC SCH ×4 (00:35→18:26)
[2021-10-25 05:09] LABS: Basophils # (auto) 0 10 ^3/uL (0-0.2); Basophils % (auto) 0.1 % (0.0-2.0); Eosinophils # (auto) 0.1 10 ^3/uL (0-0.8); Eosinophils % (auto) 0.4 % (0.0-7.0); Hematocrit 33.8 % (41.0-53.0); Lymphocytes # (auto) 0.6 10 ^3/uL (0.4-5.4); Lymphocytes % (auto) 3.8 % (10.0-50.0); Mean Corpuscular Hemoglobin 29.4 pg (28.0-32.0); Mean Corpuscular Hgb Conc. 32.5 g/dL (32.0-36.0); Mean Corpuscular Volume 90.5 fL (80.0-100.0); Monocytes # (auto) 0.7 10 ^3/uL (0-1.3); Monocytes % (auto) 4.5 % (0.0-12.0); Neutrophils # (auto) 14.3 10 ^3/uL (1.6-8.6); Neutrophils % (auto) 91.2 % (37.0-80.0); Nucleated Red Blood Cells % 0.1 %; Red Blood Cells 3.73 10^6/uL (4.5-5.90); Red Cell Distribution Width 14.3 % (11.8-14.3); White Blood Cell 15.7 10^3/uL (4.4-10.8)
[2021-10-25 05:26] LABS: Albumin 1.7 g/dL (3.4-5.0); Calcium 8.4 mg/dL (8.5-10.1); Potassium 4.8 mmol/L (3.5-5.1)
[2021-10-25 05:29] LABS: BUN/Creatinine Ratio 42.9; Bilirubin, Total 0.7 mg/dL (0.2-1.0); Total Protein 4.9 g/dL (6.4-8.2)
[2021-10-25] MEDS: FREE WATER GT SCH ×6 (06:00→22:00)
[2021-10-25] MEDS: METOCLOPRAMIDE HCL 5MG/ml INJ 2ml VIAL IV SCH ×3 (06:00→22:00)
[2021-10-25] MEDS: BUDESONIDE (INHALATION) 0.5 MG/2 ML NEB NEB SCH ×2 (06:38→22:29)
[2021-10-25] MEDS: PROPOFOL 100 ML IV SCH ×2 (07:23→18:48)
[2021-10-25] MEDS: LACTULOSE 20Gm/30ML SOLN PO SCH ×2 (09:26→22:00)
[2021-10-25] MEDS: DexAMETHasone SOD PHOS 4 MG/1ML SDV INJ IV SCH (09:26)
[2021-10-25] MEDS: PANTOPRAZOLE 40 MG/10 ML VIAL INJ IV SCH ×2 (09:26→22:00)
[2021-10-25] MEDS: DIGOXIN 0.125 MG TAB PO SCH (09:27)
[2021-10-25] MEDS: METOPROLOL TARTRATE 50 MG TAB PO SCH ×2 (09:28→22:00)
[2021-10-25] MEDS: CHOLECALCIFEROL (VITD3) 2,000 UNIT CAP/TAB PO SCH (09:29)
[2021-10-25] MEDS: CLOPIDOGREL BISULFATE 75 MG TAB PO SCH (09:29)
[2021-10-25] MEDS: fentaNYL Drip 2500mCg/250mlNS 250 ML IV SCH (11:00)
[2021-10-25] MEDS: MEROPENEM 1GM IVPB 100 ML IV SCH ×2 (11:17→23:00)
[2021-10-25] MEDS ORDERED: D5W 5% 1,000 ML IV ONE (12:30)
[2021-10-25] MEDS: MICAFUNGIN SODIUM 100 MG in SODIUM CHL 0.9% 100 ML IV SCH (17:04)
[2021-10-25 19:14] LABS: INR 1.07 (0.9-1.15); Partial Thromboplastin Time 25.9 sec (23.6-33.0)
[2021-10-26] VITALS (101 sets, daily range): BP systolic 85–182; BP diastolic 33–83
[2021-10-26] MEDS: InsuLIN REG 1unit/0.01ml Soln (100units/ml) SC SCH ×4 (00:28→17:56)
[2021-10-26] MEDS: FREE WATER GT SCH ×6 (01:58→22:00)
[2021-10-26] MEDS: fentaNYL Drip 2500mCg/250mlNS 250 ML IV SCH (02:55)
[2021-10-26] MEDS: NOREPINEPHRINE 8 MG/250ML KIT 250 ML IV SCH (04:00)
[2021-10-26 04:03] LABS: Basophils # (auto) 0 10 ^3/uL (0-0.2); Basophils % (auto) 0.2 % (0.0-2.0); Eosinophils # (auto) 0.2 10 ^3/uL (0-0.8); Eosinophils % (auto) 1.2 % (0.0-7.0); Hematocrit 30.9 % (41.0-53.0); Hemoglobin 10.3 g/dL (13.5-17.5); Lymphocytes # (auto) 0.7 10 ^3/uL (0.4-5.4); Lymphocytes % (auto) 5.3 % (10.0-50.0); Mean Corpuscular Hemoglobin 29.8 pg (28.0-32.0); Mean Corpuscular Hgb Conc. 33.2 g/dL (32.0-36.0); Mean Corpuscular Volume 89.9 fL (80.0-100.0); Monocytes # (auto) 0.6 10 ^3/uL (0-1.3); Monocytes % (auto) 4.4 % (0.0-12.0); Neutrophils # (auto) 11.9 10 ^3/uL (1.6-8.6); Neutrophils % (auto) 88.9 % (37.0-80.0); Red Blood Cells 3.44 10^6/uL (4.5-5.90); Red Cell Distribution Width 14.5 % (11.8-14.3); White Blood Cell 13.4 10^3/uL (4.4-10.8)
[2021-10-26 04:19] LABS: BUN/Creatinine Ratio 40.5; Calcium 8.9 mg/dL (8.5-10.1); Potassium 4.8 mmol/L (3.5-5.1)
[2021-10-26] MEDS: PROPOFOL 100 ML IV SCH ×3 (04:50→23:50)
[2021-10-26] MEDS: ACCU-CHEK COMFORT CURVE STRIP VI SCH ×4 (06:00→17:56)
[2021-10-26] MEDS: METOCLOPRAMIDE HCL 5MG/ml INJ 2ml VIAL IV SCH ×3 (06:00→22:00)
[2021-10-26] MEDS: LACTULOSE 20Gm/30ML SOLN PO SCH ×2 (10:00→22:00)
[2021-10-26] MEDS: PANTOPRAZOLE 40 MG/10 ML VIAL INJ IV SCH ×2 (10:28→22:00)
[2021-10-26] MEDS: DexAMETHasone SOD PHOS 4 MG/1ML SDV INJ IV SCH (10:28)
[2021-10-26] MEDS: DIGOXIN 0.125 MG TAB PO SCH (10:29)
[2021-10-26] MEDS: METOPROLOL TARTRATE 50 MG TAB PO SCH ×2 (10:30→22:00)
[2021-10-26] MEDS: MEROPENEM 1GM IVPB 100 ML IV SCH ×2 (10:30→23:00)
[2021-10-26] MEDS: CLOPIDOGREL BISULFATE 75 MG TAB PO SCH (10:30)
[2021-10-26] MEDS: CHOLECALCIFEROL (VITD3) 2,000 UNIT CAP/TAB PO SCH (10:30)
[2021-10-26] MEDS: MICAFUNGIN SODIUM 100 MG in SODIUM CHL 0.9% 100 ML IV SCH (17:04)
[2021-10-26] MEDS: BUDESONIDE (INHALATION) 0.5 MG/2 ML NEB NEB SCH (22:35)
[2021-10-27] VITALS (90 sets, daily range): BP systolic 75–177; BP diastolic 28–88
[2021-10-27] MEDS: ACCU-CHEK COMFORT CURVE STRIP VI SCH ×5 (00:08→23:39)
[2021-10-27] MEDS: FREE WATER GT SCH ×6 (02:23→22:02)
[2021-10-27 04:57] LABS: Calcium 7.9 mg/dL (8.5-10.1); Potassium 4.7 mmol/L (3.5-5.1)
[2021-10-27 05:01] LABS: BUN/Creatinine Ratio 37.1
[2021-10-27] MEDS: PROPOFOL 100 ML IV SCH ×2 (05:25→22:00)
[2021-10-27] MEDS: METOCLOPRAMIDE HCL 5MG/ml INJ 2ml VIAL IV SCH ×3 (06:00→22:03)
[2021-10-27] MEDS: InsuLIN REG 1unit/0.01ml Soln (100units/ml) SC SCH ×5 (06:00→23:39)
[2021-10-27] MEDS: NOREPINEPHRINE 8 MG/250ML KIT 250 ML IV SCH (08:00)
[2021-10-27] MEDS: DexAMETHasone SOD PHOS 4 MG/1ML SDV INJ IV SCH (09:48)
[2021-10-27] MEDS: PANTOPRAZOLE 40 MG/10 ML VIAL INJ IV SCH ×2 (09:49→22:02)
[2021-10-27] MEDS: LACTULOSE 20Gm/30ML SOLN PO SCH ×2 (09:49→22:00)
[2021-10-27] MEDS: DIGOXIN 0.125 MG TAB PO SCH (09:50)
[2021-10-27] MEDS: CHOLECALCIFEROL (VITD3) 2,000 UNIT CAP/TAB PO SCH (09:51)
[2021-10-27] MEDS: CLOPIDOGREL BISULFATE 75 MG TAB PO SCH (09:51)
[2021-10-27] MEDS: MEROPENEM 1GM IVPB 100 ML IV SCH ×2 (09:55→22:35)
[2021-10-27] MEDS: METOPROLOL TARTRATE 50 MG TAB PO SCH ×2 (10:00→22:04)
[2021-10-27] MEDS: BUDESONIDE (INHALATION) 0.5 MG/2 ML NEB NEB SCH ×2 (13:01→22:29)
[2021-10-27] MEDS: fentaNYL Drip 2500mCg/250mlNS 250 ML IV SCH (14:00)
[2021-10-27] MEDS: MICAFUNGIN SODIUM 100 MG in SODIUM CHL 0.9% 100 ML IV SCH (16:54)
[2021-10-27] MEDS: SODIUM CHLOR 0.9% PF (SALINE LOCK) 10ML VIAL/SYR IV SCH (22:04)
[2021-10-28] VITALS (101 sets, daily range): BP systolic 86–188; BP diastolic 24–69
[2021-10-28] MEDS: FREE WATER GT SCH ×6 (02:00→21:27)
[2021-10-28] MEDS: NOREPINEPHRINE 8 MG/250ML KIT 250 ML IV SCH (02:46)
[2021-10-28 04:23] LABS: Basophils # (auto) 0.1 10 ^3/uL (0-0.2); Basophils % (auto) 0.5 % (0.0-2.0); Eosinophils # (auto) 0.4 10 ^3/uL (0-0.8); Eosinophils % (auto) 3.4 % (0.0-7.0); Hemoglobin 8.8 g/dL (13.5-17.5); Lymphocytes # (auto) 0.5 10 ^3/uL (0.4-5.4); Mean Corpuscular Hgb Conc. 33.7 g/dL (32.0-36.0); Mean Corpuscular Volume 89.1 fL (80.0-100.0); Monocytes # (auto) 0.4 10 ^3/uL (0-1.3); Monocytes % (auto) 3.2 % (0.0-12.0); Neutrophils # (auto) 10.9 10 ^3/uL (1.6-8.6); Neutrophils % (auto) 88.9 % (37.0-80.0); Red Blood Cells 2.91 10^6/uL (4.5-5.90); Red Cell Distribution Width 14.2 % (11.8-14.3); White Blood Cell 12.3 10^3/uL (4.4-10.8)
[2021-10-28 04:36] LABS: Albumin 1.1 g/dL (3.4-5.0); Calcium 8.5 mg/dL (8.5-10.1); Potassium 4.9 mmol/L (3.5-5.1)
[2021-10-28 04:38] LABS: BUN/Creatinine Ratio 35.2
[2021-10-28 04:48] LABS: Bilirubin, Total 0.5 mg/dL (0.2-1.0); Total Protein 3.9 g/dL (6.4-8.2)
[2021-10-28] MEDS: InsuLIN REG 1unit/0.01ml Soln (100units/ml) SC SCH ×3 (06:00→23:34)
[2021-10-28] MEDS: BUDESONIDE (INHALATION) 0.5 MG/2 ML NEB NEB SCH ×2 (06:13→22:09)
[2021-10-28] MEDS: METOCLOPRAMIDE HCL 5MG/ml INJ 2ml VIAL IV SCH ×3 (06:20→22:24)
[2021-10-28] MEDS: ACCU-CHEK COMFORT CURVE STRIP VI SCH ×4 (06:20→23:32)
[2021-10-28] MEDS: PANTOPRAZOLE 40 MG/10 ML VIAL INJ IV SCH ×2 (08:51→22:24)
[2021-10-28] MEDS: DexAMETHasone SOD PHOS 4 MG/1ML SDV INJ IV SCH (08:51)
[2021-10-28] MEDS: SODIUM CHLOR 0.9% PF (SALINE LOCK) 10ML VIAL/SYR IV SCH ×2 (08:52→22:16)
[2021-10-28] MEDS: DIGOXIN 0.125 MG TAB PO SCH (08:53)
[2021-10-28] MEDS: METOPROLOL TARTRATE 50 MG TAB PO SCH ×2 (08:54→22:50)
[2021-10-28] MEDS: CLOPIDOGREL BISULFATE 75 MG TAB PO SCH (08:55)
[2021-10-28] MEDS: CHOLECALCIFEROL (VITD3) 2,000 UNIT CAP/TAB PO SCH (08:55)
[2021-10-28] MEDS: LACTULOSE 20Gm/30ML SOLN PO SCH ×2 (10:46→22:24)
[2021-10-28] MEDS: MEROPENEM 1GM IVPB 100 ML IV SCH ×2 (10:47→22:34)
[2021-10-28] MEDS: MICAFUNGIN SODIUM 100 MG in SODIUM CHL 0.9% 100 ML IV SCH (17:17)
[2021-10-28] MEDS: fentaNYL Drip 2500mCg/250mlNS 250 ML IV SCH (17:20)
[2021-10-29] VITALS (97 sets, daily range): BP systolic 97–204; BP diastolic 25–66
[2021-10-29] MEDS: FREE WATER GT SCH ×8 (02:00→21:57)
[2021-10-29] MEDS: PROPOFOL 100 ML IV SCH ×3 (02:49→22:00)
[2021-10-29] MEDS: NOREPINEPHRINE 8 MG/250ML KIT 250 ML IV SCH (04:00)
[2021-10-29] MEDS: METOCLOPRAMIDE HCL 5MG/ml INJ 2ml VIAL IV SCH ×4 (05:47→21:58)
[2021-10-29] MEDS: ACCU-CHEK COMFORT CURVE STRIP VI SCH ×4 (05:48→23:20)
[2021-10-29] MEDS: InsuLIN REG 1unit/0.01ml Soln (100units/ml) SC SCH ×4 (05:48→23:27)
[2021-10-29 05:53] LABS: Basophils # (auto) 0 10 ^3/uL (0-0.2); Basophils % (auto) 0.3 % (0.0-2.0); Eosinophils # (auto) 0.6 10 ^3/uL (0-0.8); Eosinophils % (auto) 5.1 % (0.0-7.0); Hematocrit 29.3 % (41.0-53.0); Hemoglobin 9.6 g/dL (13.5-17.5); Lymphocytes # (auto) 0.9 10 ^3/uL (0.4-5.4); Lymphocytes % (auto) 7.3 % (10.0-50.0); Mean Corpuscular Hemoglobin 29.7 pg (28.0-32.0); Mean Corpuscular Hgb Conc. 32.9 g/dL (32.0-36.0); Mean Corpuscular Volume 90.3 fL (80.0-100.0); Monocytes # (auto) 0.4 10 ^3/uL (0-1.3); Monocytes % (auto) 3.3 % (0.0-12.0); Neutrophils # (auto) 10.7 10 ^3/uL (1.6-8.6); Red Blood Cells 3.25 10^6/uL (4.5-5.90); Red Cell Distribution Width 14.3 % (11.8-14.3); White Blood Cell 12.7 10^3/uL (4.4-10.8)
[2021-10-29] MEDS: BUDESONIDE (INHALATION) 0.5 MG/2 ML NEB NEB SCH ×2 (06:10→21:38)
[2021-10-29 06:15] LABS: Potassium 5.1 mmol/L (3.5-5.1)
[2021-10-29 06:22] LABS: BUN/Creatinine Ratio 36.6; Calcium 8.8 mg/dL (8.5-10.1)
[2021-10-29] MEDS: LACTULOSE 20Gm/30ML SOLN PO SCH ×3 (10:00→22:00)
[2021-10-29] MEDS: PANTOPRAZOLE 40 MG/10 ML VIAL INJ IV SCH ×3 (10:00→21:57)
[2021-10-29] MEDS: DIGOXIN 0.125 MG TAB PO SCH ×2 (10:00→16:11)
[2021-10-29] MEDS: CHOLECALCIFEROL (VITD3) 2,000 UNIT CAP/TAB PO SCH ×2 (10:00→16:12)
[2021-10-29] MEDS: METOPROLOL TARTRATE 50 MG TAB PO SCH ×2 (10:00→22:00)
[2021-10-29] MEDS: SODIUM CHLOR 0.9% PF (SALINE LOCK) 10ML VIAL/SYR IV SCH ×3 (10:00→21:58)
[2021-10-29] MEDS: MEROPENEM 1GM IVPB 100 ML IV SCH ×3 (11:00→23:18)
[2021-10-29] MEDS: DexAMETHasone SOD PHOS 4 MG/1ML SDV INJ IV SCH (16:04)
[2021-10-29] MEDS: fentaNYL Drip 2500mCg/250mlNS 250 ML IV SCH (16:18)
[2021-10-29] MEDS: MICAFUNGIN SODIUM 100 MG in SODIUM CHL 0.9% 100 ML IV SCH (16:55)
[2021-10-29 23:56] LABS: Urine Bacteria FEW /hpf (None Seen); Urine Blood 3+ /uL (Negative); Urine Specific Gravity 1.019 (1.001-1.035); Urine WBC 5 /hpf (0 - 3)
[2021-10-30] VITALS (99 sets, daily range): BP systolic 102–187; BP diastolic 22–90
[2021-10-30] MEDS: FREE WATER GT SCH ×4 (02:00→17:19)
[2021-10-30] MEDS: NOREPINEPHRINE 8 MG/250ML KIT 250 ML IV SCH (04:00)
[2021-10-30 04:50] LABS: Basophils # (auto) 0 10 ^3/uL (0-0.2); Basophils % (auto) 0.4 % (0.0-2.0); Eosinophils # (auto) 0.5 10 ^3/uL (0-0.8); Eosinophils % (auto) 4.8 % (0.0-7.0); Hemoglobin 8.9 g/dL (13.5-17.5); Lymphocytes # (auto) 0.6 10 ^3/uL (0.4-5.4); Lymphocytes % (auto) 6.4 % (10.0-50.0); Mean Corpuscular Volume 90.8 fL (80.0-100.0); Monocytes # (auto) 0.3 10 ^3/uL (0-1.3); Monocytes % (auto) 3.5 % (0.0-12.0); Neutrophils # (auto) 8.3 10 ^3/uL (1.6-8.6); Neutrophils % (auto) 84.9 % (37.0-80.0); Nucleated Red Blood Cells % 0.1 %; Red Blood Cells 2.98 10^6/uL (4.5-5.90); Red Cell Distribution Width 14.3 % (11.8-14.3); White Blood Cell 9.7 10^3/uL (4.4-10.8)
[2021-10-30 05:04] LABS: Calcium 8.7 mg/dL (8.5-10.1); Potassium 5.2 mmol/L (3.5-5.1)
[2021-10-30 05:06] LABS: BUN/Creatinine Ratio 36.1
[2021-10-30] MEDS: METOCLOPRAMIDE HCL 5MG/ml INJ 2ml VIAL IV SCH ×3 (06:00→21:27)
[2021-10-30] MEDS: InsuLIN REG 1unit/0.01ml Soln (100units/ml) SC SCH ×3 (06:00→18:00)
[2021-10-30] MEDS: ACCU-CHEK COMFORT CURVE STRIP VI SCH ×3 (06:29→18:00)
[2021-10-30] MEDS: BUDESONIDE (INHALATION) 0.5 MG/2 ML NEB NEB SCH ×2 (08:15→19:31)
[2021-10-30] MEDS: LACTULOSE 20Gm/30ML SOLN PO SCH ×2 (10:06→21:29)
[2021-10-30] MEDS: DIGOXIN 0.125 MG TAB PO SCH (10:06)
[2021-10-30] MEDS: CHOLECALCIFEROL (VITD3) 2,000 UNIT CAP/TAB PO SCH (10:07)
[2021-10-30] MEDS: METOPROLOL TARTRATE 50 MG TAB PO SCH ×2 (10:07→21:30)
[2021-10-30] MEDS: PANTOPRAZOLE 40 MG/10 ML VIAL INJ IV SCH ×2 (10:08→21:27)
[2021-10-30] MEDS: SODIUM CHLOR 0.9% PF (SALINE LOCK) 10ML VIAL/SYR IV SCH ×2 (10:08→21:29)
[2021-10-30] MEDS: DexAMETHasone SOD PHOS 4 MG/1ML SDV INJ IV SCH (10:16)
[2021-10-30] MEDS: fentaNYL Drip 2500mCg/250mlNS 250 ML IV SCH (11:00)
[2021-10-30] MEDS ORDERED: FUROSEMIDE 20 MG/2 ML VIAL IV ONE (11:45)
[2021-10-30] MEDS: MEROPENEM 1GM IVPB 100 ML IV SCH ×2 (11:52→23:00)
[2021-10-30] MEDS: MICAFUNGIN SODIUM 100 MG in SODIUM CHL 0.9% 100 ML IV SCH (16:38)
[2021-10-30] MEDS: PROPOFOL 100 ML IV SCH ×2 (19:28→23:00)
[2021-10-31] VITALS (99 sets, daily range): BP systolic 107–186; BP diastolic 5–56
[2021-10-31] MEDS: fentaNYL Drip 2500mCg/250mlNS 250 ML IV SCH (00:54)
[2021-10-31] MEDS: NOREPINEPHRINE 8 MG/250ML KIT 250 ML IV SCH (04:00)
[2021-10-31] MEDS: ACCU-CHEK COMFORT CURVE STRIP VI SCH ×4 (06:00→18:24)
[2021-10-31] MEDS: InsuLIN REG 1unit/0.01ml Soln (100units/ml) SC SCH ×4 (06:00→18:00)
[2021-10-31] MEDS: FREE WATER GT SCH ×5 (06:00→21:43)
[2021-10-31] MEDS: METOCLOPRAMIDE HCL 5MG/ml INJ 2ml VIAL IV SCH ×3 (06:00→21:42)
[2021-10-31] MEDS: Glucerna 1.2 Cal 1Liter BOTTLE GT SCH (06:39)
[2021-10-31] MEDS: BUDESONIDE (INHALATION) 0.5 MG/2 ML NEB NEB SCH ×2 (06:53→22:54)
[2021-10-31] MEDS: PROPOFOL 100 ML IV SCH ×3 (06:55→18:36)
[2021-10-31 09:19] LABS: Calcium 7.8 mg/dL (8.5-10.1); Potassium 4.6 mmol/L (3.5-5.1)
[2021-10-31] MEDS: LACTULOSE 20Gm/30ML SOLN PO SCH ×2 (10:00→21:42)
[2021-10-31] MEDS: PANTOPRAZOLE 40 MG/10 ML VIAL INJ IV SCH ×2 (10:08→21:42)
[2021-10-31] MEDS: SODIUM CHLOR 0.9% PF (SALINE LOCK) 10ML VIAL/SYR IV SCH ×2 (10:08→21:46)
[2021-10-31] MEDS: DIGOXIN 0.125 MG TAB PO SCH (10:10)
[2021-10-31] MEDS: METOPROLOL TARTRATE 50 MG TAB PO SCH ×2 (10:11→21:42)
[2021-10-31] MEDS: CHOLECALCIFEROL (VITD3) 2,000 UNIT CAP/TAB PO SCH (10:11)
[2021-10-31] MEDS: MEROPENEM 1GM IVPB 100 ML IV SCH ×2 (10:20→21:43)
[2021-10-31] MEDS ORDERED: POTASSIUM EFFERVESENT TAB 25 MEQ GT ONE (15:00)
[2021-10-31] MEDS ORDERED: FUROSEMIDE 20 MG/2 ML VIAL IV ONE (15:00)
[2021-10-31] MEDS: MICAFUNGIN SODIUM 100 MG in SODIUM CHL 0.9% 100 ML IV SCH (17:35)
[2021-11-01] VITALS (99 sets, daily range): BP systolic 105–205; BP diastolic 27–74
[2021-11-01] MEDS: NOREPINEPHRINE 8 MG/250ML KIT 250 ML IV SCH ×2 (02:26→23:17)
[2021-11-01] MEDS: METOCLOPRAMIDE HCL 5MG/ml INJ 2ml VIAL IV SCH ×3 (02:27→21:09)
[2021-11-01] MEDS ORDERED: DexmedeTOMIDine 4 ML IV ONE (03:00)
[2021-11-01 04:59] LABS: Basophils # (auto) 0.1 10 ^3/uL (0-0.2); Basophils % (auto) 0.6 % (0.0-2.0); Eosinophils # (auto) 0.9 10 ^3/uL (0-0.8); Eosinophils % (auto) 9.2 % (0.0-7.0); Hematocrit 26.5 % (41.0-53.0); Hemoglobin 8.7 g/dL (13.5-17.5); Lymphocytes # (auto) 0.6 10 ^3/uL (0.4-5.4); Lymphocytes % (auto) 5.5 % (10.0-50.0); Mean Corpuscular Hemoglobin 29.5 pg (28.0-32.0); Mean Corpuscular Hgb Conc. 32.8 g/dL (32.0-36.0); Monocytes # (auto) 0.6 10 ^3/uL (0-1.3); Monocytes % (auto) 6.3 % (0.0-12.0); Neutrophils # (auto) 7.8 10 ^3/uL (1.6-8.6); Neutrophils % (auto) 78.4 % (37.0-80.0); Nucleated Red Blood Cells % 0.1 %; Red Blood Cells 2.95 10^6/uL (4.5-5.90); Red Cell Distribution Width 14.2 % (11.8-14.3); White Blood Cell 9.9 10^3/uL (4.4-10.8)
[2021-11-01 05:26] LABS: Calcium 8.4 mg/dL (8.5-10.1); Potassium 5.3 mmol/L (3.5-5.1)
[2021-11-01 05:30] LABS: BUN/Creatinine Ratio 33.3; Bilirubin, Total 0.4 mg/dL (0.2-1.0); Total Protein 4.4 g/dL (6.4-8.2)
[2021-11-01] MEDS: InsuLIN REG 1unit/0.01ml Soln (100units/ml) SC SCH ×5 (05:35→23:10)
[2021-11-01] MEDS: FREE WATER GT SCH ×4 (05:35→23:10)
[2021-11-01] MEDS: ACCU-CHEK COMFORT CURVE STRIP VI SCH ×5 (05:36→23:11)
[2021-11-01] MEDS: BUDESONIDE (INHALATION) 0.5 MG/2 ML NEB NEB SCH ×2 (06:30→22:17)
[2021-11-01] MEDS: POTASSIUM EFFERVESENT TAB 25 MEQ GT SCH (10:22)
[2021-11-01] MEDS: PANTOPRAZOLE 40 MG/10 ML VIAL INJ IV SCH ×2 (10:23→21:09)
[2021-11-01] MEDS: FUROSEMIDE 20 MG/2 ML VIAL IV SCH (10:23)
[2021-11-01] MEDS: SODIUM CHLOR 0.9% PF (SALINE LOCK) 10ML VIAL/SYR IV SCH ×2 (10:23→21:10)
[2021-11-01] MEDS: DIGOXIN 0.125 MG TAB PO SCH (10:24)
[2021-11-01] MEDS: LACTULOSE 20Gm/30ML SOLN PO SCH ×2 (10:24→21:10)
[2021-11-01] MEDS: METOPROLOL TARTRATE 50 MG TAB PO SCH ×2 (10:25→21:37)
[2021-11-01] MEDS: MEROPENEM 1GM IVPB 100 ML IV SCH ×2 (10:25→22:43)
[2021-11-01] MEDS: MICAFUNGIN SODIUM 100 MG in SODIUM CHL 0.9% 100 ML IV SCH (18:26)
[2021-11-01] MEDS: LABETALOL HCL 5 MG/ML 4ML SYRINGE IV PRN (19:34)
[2021-11-01] MEDS: LORazepam 2MG/ML-1ML VIAL IV PRN ×2 (19:34→23:11)
[2021-11-01] MEDS: LINEZOLID 600MG/300ML 300 ML IV SCH (21:09)
[2021-11-02] VITALS (52 sets, daily range): BP systolic 96–186; BP diastolic 18–67
[2021-11-02] MEDS: Glucerna 1.2 Cal 1Liter BOTTLE GT SCH (01:36)
[2021-11-02] MEDS: LABETALOL HCL 5 MG/ML 4ML SYRINGE IV PRN ×2 (01:38→08:34)
[2021-11-02] MEDS: METOCLOPRAMIDE HCL 5MG/ml INJ 2ml VIAL IV SCH ×3 (03:02→20:03)
[2021-11-02 04:40] LABS: Hematocrit 26.4 % (41.0-53.0); Hemoglobin 8.9 g/dL (13.5-17.5); Mean Corpuscular Hemoglobin 29.8 pg (28.0-32.0); Mean Corpuscular Hgb Conc. 33.5 g/dL (32.0-36.0); Mean Corpuscular Volume 88.7 fL (80.0-100.0); Red Blood Cells 2.98 10^6/uL (4.5-5.90); Red Cell Distribution Width 14.3 % (11.8-14.3); White Blood Cell 9.2 10^3/uL (4.4-10.8)
[2021-11-02 04:55] LABS: BUN/Creatinine Ratio 29.7; Calcium 8.1 mg/dL (8.5-10.1); Potassium 5.1 mmol/L (3.5-5.1)
[2021-11-02] MEDS: ACCU-CHEK COMFORT CURVE STRIP VI SCH ×3 (05:03→18:00)
[2021-11-02] MEDS: FREE WATER GT SCH ×3 (05:03→18:00)
[2021-11-02] MEDS: InsuLIN REG 1unit/0.01ml Soln (100units/ml) SC SCH ×3 (05:03→18:00)
[2021-11-02 05:19] LABS: Basophils % (manual) 0 (0.0-2.0); Blast Cells 0; Metamyelocytes % 0; Myelocytes % 0; Promyelocytes % 0; Reactive Lymphocytes 0
[2021-11-02 05:47] LABS: Band Neutrophils % (manual) 8; Eosinophils % (manual) 9 (0-7); Lymphocytes % (manual) 9 (10.0-50.0); Monocytes % (manual) 4 (0-12)
[2021-11-02] MEDS: LORazepam 2MG/ML-1ML VIAL IV PRN (08:32)
[2021-11-02] MEDS: LINEZOLID 600MG/300ML 300 ML IV SCH ×2 (08:45→20:02)
[2021-11-02] MEDS: LACTULOSE 20Gm/30ML SOLN PO SCH ×2 (10:00→20:03)
[2021-11-02] MEDS: PANTOPRAZOLE 40 MG/10 ML VIAL INJ IV SCH ×2 (10:27→20:03)
[2021-11-02] MEDS: POTASSIUM EFFERVESENT TAB 25 MEQ GT SCH (10:27)
[2021-11-02] MEDS: FUROSEMIDE 20 MG/2 ML VIAL IV SCH (10:27)
[2021-11-02] MEDS: SODIUM CHLOR 0.9% PF (SALINE LOCK) 10ML VIAL/SYR IV SCH ×2 (10:28→20:03)
[2021-11-02] MEDS: DIGOXIN 0.125 MG TAB PO SCH (10:30)
[2021-11-02] MEDS: METOPROLOL TARTRATE 50 MG TAB PO SCH ×2 (10:31→21:58)
[2021-11-02] MEDS: MEROPENEM 1GM IVPB 100 ML IV SCH ×2 (10:49→22:47)
[2021-11-02] MEDS: PROPOFOL 100 ML IV SCH (10:49)
[2021-11-02] MEDS: BUDESONIDE (INHALATION) 0.5 MG/2 ML NEB NEB SCH ×2 (15:50→18:50)
[2021-11-02] MEDS: MICAFUNGIN SODIUM 100 MG in SODIUM CHL 0.9% 100 ML IV SCH (17:00)
[2021-11-03] VITALS (67 sets, daily range): BP systolic 86–190; BP diastolic 23–78
[2021-11-03] MEDS: FREE WATER GT SCH ×4 (00:26→18:10)
[2021-11-03] MEDS: ACCU-CHEK COMFORT CURVE STRIP VI SCH ×4 (00:27→18:10)
[2021-11-03] MEDS: NOREPINEPHRINE 8 MG/250ML KIT 250 ML IV SCH (01:12)
[2021-11-03] MEDS: LORazepam 2MG/ML-1ML VIAL IV PRN (03:30)
[2021-11-03] MEDS: METOCLOPRAMIDE HCL 5MG/ml INJ 2ml VIAL IV SCH ×3 (05:28→22:00)
[2021-11-03] MEDS: InsuLIN REG 1unit/0.01ml Soln (100units/ml) SC SCH ×4 (06:00→18:00)
[2021-11-03] MEDS: BUDESONIDE (INHALATION) 0.5 MG/2 ML NEB NEB SCH ×2 (06:29→22:08)
[2021-11-03] MEDS: LINEZOLID 600MG/300ML 300 ML IV SCH ×2 (08:45→21:00)
[2021-11-03] MEDS: LACTULOSE 20Gm/30ML SOLN PO SCH ×2 (10:00→22:00)
[2021-11-03] MEDS: MEROPENEM 1GM IVPB 100 ML IV SCH ×2 (10:40→23:00)
[2021-11-03] MEDS: METOPROLOL TARTRATE 50 MG TAB PO SCH ×2 (10:40→22:00)
[2021-11-03] MEDS: FUROSEMIDE 20 MG/2 ML VIAL IV SCH (10:40)
[2021-11-03] MEDS: PANTOPRAZOLE 40 MG/10 ML VIAL INJ IV SCH ×2 (10:40→22:00)
[2021-11-03] MEDS: POTASSIUM EFFERVESENT TAB 25 MEQ GT SCH (10:40)
[2021-11-03] MEDS: SODIUM CHLOR 0.9% PF (SALINE LOCK) 10ML VIAL/SYR IV SCH ×2 (10:40→22:00)
[2021-11-03] MEDS: DIGOXIN 0.125 MG TAB PO SCH (10:40)
[2021-11-03] MEDS: PROPOFOL 100 ML IV SCH (11:00)
[2021-11-03] MEDS: ACETAMINOPHEN 650 mg PER 20.3 mL UD GT PRN (16:09)
[2021-11-03] MEDS: MICAFUNGIN SODIUM 100 MG in SODIUM CHL 0.9% 100 ML IV SCH (17:05)
[2021-11-04] VITALS (107 sets, daily range): BP systolic 90–175; BP diastolic 28–93
[2021-11-04 03:29] LABS: Basophils # (auto) 0 10 ^3/uL (0-0.2); Basophils % (auto) 0.2 % (0.0-2.0); Hemoglobin 8.2 g/dL (13.5-17.5); Mean Corpuscular Volume 89.7 fL (80.0-100.0)
[2021-11-04 03:31] LABS: Eosinophils # (auto) 1.1 10 ^3/uL (0-0.8); Eosinophils % (auto) 11.2 % (0.0-7.0); Hematocrit 24.3 % (41.0-53.0); Lymphocytes # (auto) 0.5 10 ^3/uL (0.4-5.4); Lymphocytes % (auto) 5.4 % (10.0-50.0); Mean Corpuscular Hemoglobin 30.2 pg (28.0-32.0); Mean Corpuscular Hgb Conc. 33.6 g/dL (32.0-36.0); Monocytes # (auto) 0.6 10 ^3/uL (0-1.3); Monocytes % (auto) 5.8 % (0.0-12.0); Neutrophils # (auto) 7.8 10 ^3/uL (1.6-8.6); Neutrophils % (auto) 77.4 % (37.0-80.0); Red Cell Distribution Width 14.1 % (11.8-14.3)
[2021-11-04 03:47] LABS: BUN/Creatinine Ratio 28.1; Calcium 7.6 mg/dL (8.5-10.1); Potassium 4.4 mmol/L (3.5-5.1)
[2021-11-04 03:50] LABS: Bilirubin, Total 0.5 mg/dL (0.2-1.0); Total Protein 4.1 g/dL (6.4-8.2)
[2021-11-04] MEDS: NOREPINEPHRINE 8 MG/250ML KIT 250 ML IV SCH (04:00)
[2021-11-04] MEDS: METOCLOPRAMIDE HCL 5MG/ml INJ 2ml VIAL IV SCH ×3 (05:55→21:49)
[2021-11-04] MEDS: InsuLIN REG 1unit/0.01ml Soln (100units/ml) SC SCH ×4 (05:55→18:00)
[2021-11-04] MEDS: FREE WATER GT SCH ×4 (05:55→18:24)
[2021-11-04] MEDS: ACCU-CHEK COMFORT CURVE STRIP VI SCH ×4 (05:56→18:24)
[2021-11-04] MEDS: BUDESONIDE (INHALATION) 0.5 MG/2 ML NEB NEB SCH ×2 (06:19→22:37)
[2021-11-04] MEDS: PANTOPRAZOLE 40 MG/10 ML VIAL INJ IV SCH ×2 (09:25→21:49)
[2021-11-04] MEDS: METOPROLOL TARTRATE 50 MG TAB PO SCH ×2 (09:26→21:50)
[2021-11-04] MEDS: LINEZOLID 600MG/300ML 300 ML IV SCH ×2 (09:27→21:00)
[2021-11-04] MEDS: POTASSIUM EFFERVESENT TAB 25 MEQ GT SCH (09:27)
[2021-11-04] MEDS: DIGOXIN 0.125 MG TAB PO SCH (09:27)
[2021-11-04] MEDS: FUROSEMIDE 20 MG/2 ML VIAL IV SCH (09:27)
[2021-11-04] MEDS: SODIUM CHLOR 0.9% PF (SALINE LOCK) 10ML VIAL/SYR IV SCH ×2 (09:28→21:49)
[2021-11-04] MEDS: LACTULOSE 20Gm/30ML SOLN PO SCH ×2 (10:00→21:50)
[2021-11-04] MEDS: PROPOFOL 100 ML IV SCH (11:00)
[2021-11-04] MEDS: MEROPENEM 1GM IVPB 100 ML IV SCH ×2 (12:20→22:44)
[2021-11-04] MEDS: LABETALOL HCL 5 MG/ML 4ML SYRINGE IV PRN (14:33)
[2021-11-04] MEDS: MICAFUNGIN SODIUM 100 MG in SODIUM CHL 0.9% 100 ML IV SCH (16:55)
[2021-11-05] VITALS (101 sets, daily range): BP systolic 84–175; BP diastolic 24–88
[2021-11-05] MEDS: ACETAMINOPHEN 650 mg PER 20.3 mL UD GT PRN (02:04)
[2021-11-05] MEDS: NOREPINEPHRINE 8 MG/250ML KIT 250 ML IV SCH (04:00)
[2021-11-05] MEDS: METOCLOPRAMIDE HCL 5MG/ml INJ 2ml VIAL IV SCH ×3 (06:00→21:42)
[2021-11-05] MEDS: ACCU-CHEK COMFORT CURVE STRIP VI SCH ×4 (06:00→17:39)
[2021-11-05] MEDS: InsuLIN REG 1unit/0.01ml Soln (100units/ml) SC SCH ×4 (06:00→17:39)
[2021-11-05] MEDS: FREE WATER GT SCH ×4 (06:09→17:39)
[2021-11-05] MEDS: BUDESONIDE (INHALATION) 0.5 MG/2 ML NEB NEB SCH ×2 (06:14→19:57)
[2021-11-05] MEDS: POTASSIUM EFFERVESENT TAB 25 MEQ GT SCH (09:03)
[2021-11-05] MEDS: LINEZOLID 600MG/300ML 300 ML IV SCH ×2 (09:03→21:00)
[2021-11-05] MEDS: PANTOPRAZOLE 40 MG/10 ML VIAL INJ IV SCH ×2 (09:03→21:41)
[2021-11-05] MEDS: DIGOXIN 0.125 MG TAB PO SCH (09:04)
[2021-11-05] MEDS: FUROSEMIDE 20 MG/2 ML VIAL IV SCH (09:04)
[2021-11-05] MEDS: METOPROLOL TARTRATE 50 MG TAB PO SCH ×2 (09:04→21:42)
[2021-11-05] MEDS: SODIUM CHLOR 0.9% PF (SALINE LOCK) 10ML VIAL/SYR IV SCH ×2 (09:05→21:42)
[2021-11-05] MEDS: LACTULOSE 20Gm/30ML SOLN PO SCH ×2 (09:05→21:42)
[2021-11-05] MEDS: PROPOFOL 100 ML IV SCH (10:37)
[2021-11-05] MEDS: MEROPENEM 1GM IVPB 100 ML IV SCH (11:15)
[2021-11-05] MEDS: MICAFUNGIN SODIUM 100 MG in SODIUM CHL 0.9% 100 ML IV SCH (16:44)
[2021-11-05] MEDS: LORazepam 2MG/ML-1ML VIAL IV PRN ×2 (18:37→20:56)
[2021-11-06] VITALS (101 sets, daily range): BP systolic 74–191; BP diastolic 32–96
[2021-11-06] MEDS: MEROPENEM 1GM IVPB 100 ML IV SCH ×3 (00:29→23:00)
[2021-11-06] MEDS: LINEZOLID 600MG/300ML 300 ML IV SCH ×2 (00:30→21:49)
[2021-11-06] MEDS: FREE WATER GT SCH ×4 (00:30→17:53)
[2021-11-06 02:14] LABS: Hematocrit 25.5 % (41.0-53.0); Mean Corpuscular Hgb Conc. 33.1 g/dL (32.0-36.0); White Blood Cell 11.9 10^3/uL (4.4-10.8)
[2021-11-06 02:16] LABS: Hemoglobin 8.5 g/dL (13.5-17.5); Mean Corpuscular Hemoglobin 29.4 pg (28.0-32.0); Mean Corpuscular Volume 88.7 fL (80.0-100.0); Red Blood Cells 2.87 10^6/uL (4.5-5.90); Red Cell Distribution Width 14.1 % (11.8-14.3)
[2021-11-06 02:33] LABS: BUN/Creatinine Ratio 24.8; Calcium 7.8 mg/dL (8.5-10.1); Potassium 4.2 mmol/L (3.5-5.1)
[2021-11-06 02:58] LABS: Basophils % (manual) 0 (0.0-2.0); Blast Cells 0; Metamyelocytes % 0; Myelocytes % 0; Promyelocytes % 0; Reactive Lymphocytes 0
[2021-11-06] MEDS: NOREPINEPHRINE 8 MG/250ML KIT 250 ML IV SCH (04:00)
[2021-11-06] MEDS: InsuLIN REG 1unit/0.01ml Soln (100units/ml) SC SCH ×4 (05:31→17:51)
[2021-11-06] MEDS: METOCLOPRAMIDE HCL 5MG/ml INJ 2ml VIAL IV SCH (05:31)
[2021-11-06] MEDS: ACCU-CHEK COMFORT CURVE STRIP VI SCH ×4 (05:32→17:52)
[2021-11-06 05:41] LABS: Band Neutrophils % (manual) 5; Eosinophils % (manual) 8 (0-7); Lymphocytes % (manual) 10 (10.0-50.0); Monocytes % (manual) 7 (0-12)
[2021-11-06] MEDS: BUDESONIDE (INHALATION) 0.5 MG/2 ML NEB NEB SCH ×2 (06:10→21:56)
[2021-11-06] MEDS: PANTOPRAZOLE 40 MG/10 ML VIAL INJ IV SCH ×2 (09:54→21:49)
[2021-11-06] MEDS: FUROSEMIDE 20 MG/2 ML VIAL IV SCH (09:55)
[2021-11-06] MEDS: METOPROLOL TARTRATE 50 MG TAB PO SCH (09:55)
[2021-11-06] MEDS: POTASSIUM EFFERVESENT TAB 25 MEQ GT SCH (09:56)
[2021-11-06] MEDS: SODIUM CHLOR 0.9% PF (SALINE LOCK) 10ML VIAL/SYR IV SCH ×2 (09:56→21:49)
[2021-11-06] MEDS: DIGOXIN 0.125 MG TAB PO SCH (09:56)
[2021-11-06] MEDS: LACTULOSE 20Gm/30ML SOLN PO SCH (09:56)
[2021-11-06] MEDS: PROPOFOL 100 ML IV SCH (11:00)
[2021-11-06] MEDS: MICAFUNGIN SODIUM 100 MG in SODIUM CHL 0.9% 100 ML IV SCH (14:39)
[2021-11-06] MEDS: LABETALOL HCL 5 MG/ML 4ML SYRINGE IV PRN (14:40)
[2021-11-06] MEDS: METOPROLOL TARTRATE 25 MG TAB PO SCH (21:51)
[2021-11-07] VITALS (76 sets, daily range): BP systolic 106–206; BP diastolic 29–104
[2021-11-07] MEDS: LABETALOL HCL 5 MG/ML 4ML SYRINGE IV PRN ×2 (01:45→13:11)
[2021-11-07] MEDS: NOREPINEPHRINE 8 MG/250ML KIT 250 ML IV SCH (04:00)
[2021-11-07 04:25] LABS: Hematocrit 26.6 % (41.0-53.0); Hemoglobin 8.9 g/dL (13.5-17.5); Mean Corpuscular Hemoglobin 29.8 pg (28.0-32.0); Mean Corpuscular Volume 88.8 fL (80.0-100.0); Monocytes % (auto) 5.9 % (0.0-12.0)
[2021-11-07 04:31] LABS: BUN/Creatinine Ratio 24.3; Basophils # (auto) 0.1 10 ^3/uL (0-0.2); Basophils % (auto) 0.5 % (0.0-2.0); Calcium 8.2 mg/dL (8.5-10.1); Eosinophils # (auto) 0.7 10 ^3/uL (0-0.8); Eosinophils % (auto) 4.2 % (0.0-7.0); Lymphocytes # (auto) 0.9 10 ^3/uL (0.4-5.4); Lymphocytes % (auto) 5.2 % (10.0-50.0); Mean Corpuscular Hgb Conc. 33.6 g/dL (32.0-36.0); Neutrophils # (auto) 14.1 10 ^3/uL (1.6-8.6); Neutrophils % (auto) 84.2 % (37.0-80.0); Nucleated Red Blood Cells % 0.1 %; Potassium 4.5 mmol/L (3.5-5.1); Red Blood Cells 2.99 10^6/uL (4.5-5.90); White Blood Cell 16.8 10^3/uL (4.4-10.8)
[2021-11-07] MEDS: ACCU-CHEK COMFORT CURVE STRIP VI SCH ×5 (05:12→23:32)
[2021-11-07] MEDS: InsuLIN REG 1unit/0.01ml Soln (100units/ml) SC SCH ×5 (05:13→23:32)
[2021-11-07] MEDS: FREE WATER GT SCH ×5 (05:14→23:33)
[2021-11-07] MEDS: LINEZOLID 600MG/300ML 300 ML IV SCH ×2 (09:03→20:37)
[2021-11-07] MEDS: FUROSEMIDE 20 MG/2 ML VIAL IV SCH (09:04)
[2021-11-07] MEDS: PANTOPRAZOLE 40 MG/10 ML VIAL INJ IV SCH ×2 (09:04→22:14)
[2021-11-07] MEDS: SODIUM CHLOR 0.9% PF (SALINE LOCK) 10ML VIAL/SYR IV SCH ×2 (09:05→22:15)
[2021-11-07] MEDS: BUDESONIDE (INHALATION) 0.5 MG/2 ML NEB NEB SCH ×2 (09:42→19:24)
[2021-11-07] MEDS: POTASSIUM EFFERVESENT TAB 25 MEQ GT SCH (09:43)
[2021-11-07] MEDS: DIGOXIN 0.125 MG TAB PO SCH (09:43)
[2021-11-07] MEDS: METOPROLOL TARTRATE 25 MG TAB PO SCH ×2 (09:44→22:36)
[2021-11-07] MEDS: PROPOFOL 100 ML IV SCH (11:00)
[2021-11-07] MEDS: MEROPENEM 1GM IVPB 100 ML IV SCH ×2 (12:02→23:31)
[2021-11-07] MEDS: MICAFUNGIN SODIUM 100 MG in SODIUM CHL 0.9% 100 ML IV SCH (15:19)
[2021-11-07] MEDS: LORazepam 2MG/ML-1ML VIAL IV PRN ×2 (16:54→20:38)
[2021-11-08] VITALS (96 sets, daily range): BP systolic 91–173; BP diastolic 21–75
[2021-11-08] MEDS: LORazepam 2MG/ML-1ML VIAL IV PRN ×2 (02:11→10:12)
[2021-11-08] MEDS: NOREPINEPHRINE 8 MG/250ML KIT 250 ML IV SCH (03:57)
[2021-11-08 04:37] LABS: Basophils # (auto) 0.1 10 ^3/uL (0-0.2); Eosinophils # (auto) 0.9 10 ^3/uL (0-0.8); Eosinophils % (auto) 6.6 % (0.0-7.0); Lymphocytes # (auto) 0.8 10 ^3/uL (0.4-5.4); Monocytes # (auto) 0.9 10 ^3/uL (0-1.3); White Blood Cell 13.6 10^3/uL (4.4-10.8)
[2021-11-08 04:39] LABS: Hematocrit 22.8 % (41.0-53.0); Hemoglobin 7.6 g/dL (13.5-17.5); Lymphocytes % (auto) 5.8 % (10.0-50.0); Mean Corpuscular Hemoglobin 29.5 pg (28.0-32.0); Mean Corpuscular Hgb Conc. 33.4 g/dL (32.0-36.0); Mean Corpuscular Volume 88.3 fL (80.0-100.0); Monocytes % (auto) 6.4 % (0.0-12.0); Neutrophils # (auto) 10.9 10 ^3/uL (1.6-8.6); Neutrophils % (auto) 80.2 % (37.0-80.0); Red Blood Cells 2.58 10^6/uL (4.5-5.90)
[2021-11-08 04:56] LABS: BUN/Creatinine Ratio 24.4; Calcium 7.7 mg/dL (8.5-10.1); Potassium 4.5 mmol/L (3.5-5.1)
[2021-11-08] MEDS: FREE WATER GT SCH ×4 (05:42→23:14)
[2021-11-08] MEDS: InsuLIN REG 1unit/0.01ml Soln (100units/ml) SC SCH ×3 (05:43→17:45)
[2021-11-08] MEDS: ACCU-CHEK COMFORT CURVE STRIP VI SCH ×3 (05:44→17:45)
[2021-11-08] MEDS: BUDESONIDE (INHALATION) 0.5 MG/2 ML NEB NEB SCH ×2 (06:27→22:21)
[2021-11-08] MEDS: LINEZOLID 600MG/300ML 300 ML IV SCH ×2 (09:05→21:11)
[2021-11-08] MEDS: PANTOPRAZOLE 40 MG/10 ML VIAL INJ IV SCH ×2 (10:00→21:54)
[2021-11-08] MEDS: METOPROLOL TARTRATE 25 MG TAB PO SCH ×2 (10:00→21:54)
[2021-11-08] MEDS: FUROSEMIDE 20 MG/2 ML VIAL IV SCH (10:00)
[2021-11-08] MEDS: POTASSIUM EFFERVESENT TAB 25 MEQ GT SCH (10:00)
[2021-11-08] MEDS: SODIUM CHLOR 0.9% PF (SALINE LOCK) 10ML VIAL/SYR IV SCH ×2 (10:12→21:54)
[2021-11-08] MEDS: MEROPENEM 1GM IVPB 100 ML IV SCH ×2 (10:45→23:13)
[2021-11-08] MEDS: PROPOFOL 100 ML IV SCH (11:00)
[2021-11-08] MEDS: DIGOXIN 0.125 MG TAB PO SCH (11:49)
[2021-11-08] MEDS: LABETALOL HCL 5 MG/ML 4ML SYRINGE IV PRN (17:02)
[2021-11-08] MEDS: MICAFUNGIN SODIUM 100 MG in SODIUM CHL 0.9% 100 ML IV SCH (17:02)
[2021-11-09] VITALS (78 sets, daily range): BP systolic 80–183; BP diastolic 28–91
[2021-11-09] MEDS: ACCU-CHEK COMFORT CURVE STRIP VI SCH ×5 (00:15→17:44)
[2021-11-09] MEDS: LABETALOL HCL 5 MG/ML 4ML SYRINGE IV PRN (00:16)
[2021-11-09] MEDS: NOREPINEPHRINE 8 MG/250ML KIT 250 ML IV SCH (04:00)
[2021-11-09] MEDS: InsuLIN REG 1unit/0.01ml Soln (100units/ml) SC SCH ×4 (06:00→17:44)
[2021-11-09] MEDS: FREE WATER GT SCH ×3 (06:00→18:28)
[2021-11-09] MEDS: BUDESONIDE (INHALATION) 0.5 MG/2 ML NEB NEB SCH ×2 (06:32→22:19)
[2021-11-09] MEDS: LINEZOLID 600MG/300ML 300 ML IV SCH ×2 (09:14→21:57)
[2021-11-09] MEDS: FUROSEMIDE 20 MG/2 ML VIAL IV SCH (10:00)
[2021-11-09] MEDS: DIGOXIN 0.125 MG TAB PO SCH (10:00)
[2021-11-09] MEDS: METOPROLOL TARTRATE 25 MG TAB PO SCH ×2 (10:00→22:00)
[2021-11-09] MEDS: POTASSIUM EFFERVESENT TAB 25 MEQ GT SCH (10:13)
[2021-11-09] MEDS: PANTOPRAZOLE 40 MG/10 ML VIAL INJ IV SCH ×2 (10:15→21:58)
[2021-11-09] MEDS: SODIUM CHLOR 0.9% PF (SALINE LOCK) 10ML VIAL/SYR IV SCH ×2 (10:17→21:58)
[2021-11-09] MEDS: MEROPENEM 1GM IVPB 100 ML IV SCH ×2 (11:00→23:24)
[2021-11-09] MEDS: PROPOFOL 100 ML IV SCH (11:00)
[2021-11-09 13:34] LABS: Hemoglobin 8.8 g/dL (13.5-17.5); Monocytes # (auto) 0.8 10 ^3/uL (0-1.3); Neutrophils # (auto) 10.4 10 ^3/uL (1.6-8.6)
[2021-11-09 13:36] LABS: Basophils # (auto) 0.1 10 ^3/uL (0-0.2); Basophils % (auto) 1.1 % (0.0-2.0); Eosinophils # (auto) 0.7 10 ^3/uL (0-0.8); Eosinophils % (auto) 5.7 % (0.0-7.0); Hematocrit 26.3 % (41.0-53.0); Lymphocytes % (auto) 7.6 % (10.0-50.0); Mean Corpuscular Hemoglobin 29.5 pg (28.0-32.0); Mean Corpuscular Hgb Conc. 33.3 g/dL (32.0-36.0); Mean Corpuscular Volume 88.5 fL (80.0-100.0); Neutrophils % (auto) 79.6 % (37.0-80.0); Nucleated Red Blood Cells % 0.1 %; Red Blood Cells 2.97 10^6/uL (4.5-5.90); Red Cell Distribution Width 14.4 % (11.8-14.3)
[2021-11-09 16:07] LABS: Anion Gap 8 (5-15); BUN/Creatinine Ratio 18.1; Blood Urea Nitrogen 27 mg/dL (7-18); Calcium 7.8 mg/dL (8.5-10.1); Carbon Dioxide 28 mmol/L (21-32); Chloride 101 mmol/L (98-107); GFR African American 58 mL/min; GFR Non-African American 48 mL/min; Glucose 91 mg/dL (74-106); Potassium 4.6 mmol/L (3.5-5.1); Sodium 137 mmol/L (136-145)
[2021-11-09] MEDS: MICAFUNGIN SODIUM 100 MG in SODIUM CHL 0.9% 100 ML IV SCH (16:54)
[2021-11-10] VITALS (80 sets, daily range): BP systolic 77–198; BP diastolic 28–99
[2021-11-10] MEDS: ACCU-CHEK COMFORT CURVE STRIP VI SCH ×3 (00:57→17:45)
[2021-11-10] MEDS ORDERED: DexmedeTOMIDine 4 ML IV ONE (01:46)
[2021-11-10] MEDS: NOREPINEPHRINE 8 MG/250ML KIT 250 ML IV SCH (04:00)
[2021-11-10] MEDS: InsuLIN REG 1unit/0.01ml Soln (100units/ml) SC SCH ×4 (06:00→17:45)
[2021-11-10] MEDS: FREE WATER GT SCH ×4 (06:10→17:59)
[2021-11-10] MEDS: PROPOFOL 100 ML IV SCH (07:47)
[2021-11-10 09:19] LABS: Basophils # (auto) 0.1 10 ^3/uL (0-0.2); Basophils % (auto) 1.2 % (0.0-2.0); Eosinophils # (auto) 0.6 10 ^3/uL (0-0.8); Eosinophils % (auto) 5.8 % (0.0-7.0); Hematocrit 22.5 % (41.0-53.0); Hemoglobin 7.5 g/dL (13.5-17.5); Lymphocytes # (auto) 0.8 10 ^3/uL (0.4-5.4); Mean Corpuscular Hemoglobin 29.5 pg (28.0-32.0); Mean Corpuscular Hgb Conc. 33.2 g/dL (32.0-36.0); Mean Corpuscular Volume 88.7 fL (80.0-100.0); Monocytes # (auto) 0.7 10 ^3/uL (0-1.3); Neutrophils # (auto) 8.2 10 ^3/uL (1.6-8.6); Red Blood Cells 2.54 10^6/uL (4.5-5.90); Red Cell Distribution Width 14.1 % (11.8-14.3); White Blood Cell 10.5 10^3/uL (4.4-10.8)
[2021-11-10 09:31] LABS: BUN/Creatinine Ratio 18.8; Calcium 7.3 mg/dL (8.5-10.1); Potassium 4.3 mmol/L (3.5-5.1)
[2021-11-10] MEDS: POTASSIUM EFFERVESENT TAB 25 MEQ GT SCH (09:44)
[2021-11-10] MEDS: LINEZOLID 600MG/300ML 300 ML IV SCH ×2 (09:44→20:53)
[2021-11-10] MEDS: PANTOPRAZOLE 40 MG/10 ML VIAL INJ IV SCH ×2 (09:45→22:46)
[2021-11-10] MEDS: SODIUM CHLOR 0.9% PF (SALINE LOCK) 10ML VIAL/SYR IV SCH ×2 (09:46→22:46)
[2021-11-10] MEDS: DIGOXIN 0.125 MG TAB PO SCH (09:46)
[2021-11-10] MEDS: METOPROLOL TARTRATE 25 MG TAB PO SCH ×2 (09:46→22:47)
[2021-11-10] MEDS: FUROSEMIDE 20 MG/2 ML VIAL IV SCH (10:00)
[2021-11-10] MEDS: BUDESONIDE (INHALATION) 0.5 MG/2 ML NEB NEB SCH ×2 (11:12→22:37)
[2021-11-10] MEDS: MEROPENEM 1GM IVPB 100 ML IV SCH ×2 (12:39→23:38)
[2021-11-10] MEDS: MICAFUNGIN SODIUM 100 MG in SODIUM CHL 0.9% 100 ML IV SCH (17:59)
[2021-11-10] MEDS: LABETALOL HCL 5 MG/ML 4ML SYRINGE IV PRN (20:52)
[2021-11-11] VITALS (79 sets, daily range): BP systolic 81–187; BP diastolic 41–145
[2021-11-11] MEDS: FREE WATER GT SCH ×4 (00:24→22:25)
[2021-11-11] MEDS: InsuLIN REG 1unit/0.01ml Soln (100units/ml) SC SCH ×5 (00:50→23:51)
[2021-11-11] MEDS: NOREPINEPHRINE 8 MG/250ML KIT 250 ML IV SCH (04:00)
[2021-11-11] MEDS: ACCU-CHEK COMFORT CURVE STRIP VI SCH ×5 (06:00→23:51)
[2021-11-11] MEDS: BUDESONIDE (INHALATION) 0.5 MG/2 ML NEB NEB SCH ×2 (06:26→21:48)
[2021-11-11 07:51] LABS: Calcium 8.1 mg/dL (8.5-10.1); Potassium 4.3 mmol/L (3.5-5.1)
[2021-11-11 07:54] LABS: BUN/Creatinine Ratio 23.8
[2021-11-11 10:23] LABS: Hematocrit 24.1 % (41.0-53.0); White Blood Cell 11.8 10^3/uL (4.4-10.8)
[2021-11-11 10:25] LABS: Basophils # (auto) 0.1 10 ^3/uL (0-0.2); Eosinophils # (auto) 0.4 10 ^3/uL (0-0.8); Eosinophils % (auto) 3.3 % (0.0-7.0); Lymphocytes # (auto) 0.8 10 ^3/uL (0.4-5.4); Lymphocytes % (auto) 7.2 % (10.0-50.0); Mean Corpuscular Hemoglobin 29.5 pg (28.0-32.0); Mean Corpuscular Hgb Conc. 33.1 g/dL (32.0-36.0); Mean Corpuscular Volume 89.1 fL (80.0-100.0); Monocytes # (auto) 0.8 10 ^3/uL (0-1.3); Monocytes % (auto) 6.5 % (0.0-12.0); Neutrophils # (auto) 9.6 10 ^3/uL (1.6-8.6); Red Blood Cells 2.71 10^6/uL (4.5-5.90)
[2021-11-11] MEDS: POTASSIUM EFFERVESENT TAB 25 MEQ GT SCH (10:36)
[2021-11-11] MEDS: FUROSEMIDE 20 MG/2 ML VIAL IV SCH (10:37)
[2021-11-11] MEDS: PANTOPRAZOLE 40 MG/10 ML VIAL INJ IV SCH ×2 (10:37→22:26)
[2021-11-11] MEDS: DIGOXIN 0.125 MG TAB PO SCH (10:38)
[2021-11-11] MEDS: SODIUM CHLOR 0.9% PF (SALINE LOCK) 10ML VIAL/SYR IV SCH ×2 (10:38→22:26)
[2021-11-11] MEDS: METOPROLOL TARTRATE 25 MG TAB PO SCH (10:38)
[2021-11-11] MEDS: LINEZOLID 600MG/300ML 300 ML IV SCH ×2 (10:50→22:21)
[2021-11-11] MEDS: PROPOFOL 100 ML IV SCH (10:50)
[2021-11-11] MEDS: MEROPENEM 1GM IVPB 100 ML IV SCH ×2 (15:17→23:50)
[2021-11-11] MEDS: MICAFUNGIN SODIUM 100 MG in SODIUM CHL 0.9% 100 ML IV SCH ×2 (17:00→18:32)
[2021-11-11] MEDS ORDERED: FUROSEMIDE 20 MG/2 ML VIAL IV ONE (17:00)
[2021-11-11] MEDS: METOPROLOL TARTRATE 50 MG TAB PO SCH (21:00)
[2021-11-12] VITALS (86 sets, daily range): BP systolic 100–185; BP diastolic 48–102
[2021-11-12] MEDS: NOREPINEPHRINE 8 MG/250ML KIT 250 ML IV SCH (04:00)
[2021-11-12 04:12] LABS: Basophils # (auto) 0.1 10 ^3/uL (0-0.2)
[2021-11-12 04:20] LABS: Basophils % (auto) 0.9 % (0.0-2.0); Eosinophils # (auto) 0.4 10 ^3/uL (0-0.8); Eosinophils % (auto) 3.7 % (0.0-7.0); Hematocrit 24.1 % (41.0-53.0); Lymphocytes # (auto) 0.9 10 ^3/uL (0.4-5.4); Lymphocytes % (auto) 7.4 % (10.0-50.0); Mean Corpuscular Hemoglobin 29.6 pg (28.0-32.0); Mean Corpuscular Hgb Conc. 33.2 g/dL (32.0-36.0); Mean Corpuscular Volume 89.3 fL (80.0-100.0); Monocytes # (auto) 0.8 10 ^3/uL (0-1.3); Monocytes % (auto) 6.4 % (0.0-12.0); Neutrophils % (auto) 81.6 % (37.0-80.0); Nucleated Red Blood Cells % 0.1 %; Red Cell Distribution Width 14.3 % (11.8-14.3); White Blood Cell 12.2 10^3/uL (4.4-10.8)
[2021-11-12 04:26] LABS: Calcium 7.4 mg/dL (8.5-10.1); Potassium 4.1 mmol/L (3.5-5.1)
[2021-11-12 04:28] LABS: BUN/Creatinine Ratio 21.5
[2021-11-12] MEDS: InsuLIN REG 1unit/0.01ml Soln (100units/ml) SC SCH ×3 (06:00→17:47)
[2021-11-12] MEDS: ACCU-CHEK COMFORT CURVE STRIP VI SCH ×3 (06:00→17:47)
[2021-11-12] MEDS: FREE WATER GT SCH ×3 (06:00→22:25)
[2021-11-12] MEDS: POTASSIUM EFFERVESENT TAB 25 MEQ GT SCH (09:16)
[2021-11-12] MEDS: PANTOPRAZOLE 40 MG/10 ML VIAL INJ IV SCH ×2 (09:17→22:26)
[2021-11-12] MEDS: SODIUM CHLOR 0.9% PF (SALINE LOCK) 10ML VIAL/SYR IV SCH ×2 (09:17→22:26)
[2021-11-12] MEDS: FUROSEMIDE 20 MG/2 ML VIAL IV SCH (09:17)
[2021-11-12] MEDS: DIGOXIN 0.125 MG TAB PO SCH (09:18)
[2021-11-12] MEDS: METOPROLOL TARTRATE 50 MG TAB PO SCH ×2 (09:19→22:27)
[2021-11-12] MEDS: BUDESONIDE (INHALATION) 0.5 MG/2 ML NEB NEB SCH ×2 (10:11→22:02)
[2021-11-12] MEDS: LINEZOLID 600MG/300ML 300 ML IV SCH ×2 (10:34→20:58)
[2021-11-12] MEDS ORDERED: FUROSEMIDE 20 MG/2 ML VIAL IV ONE (14:00)
[2021-11-12] MEDS: MEROPENEM 1GM IVPB 100 ML IV SCH ×2 (16:09→20:58)
[2021-11-12] MEDS: MICAFUNGIN SODIUM 100 MG in SODIUM CHL 0.9% 100 ML IV SCH (17:47)
[2021-11-12] MEDS: LABETALOL HCL 5 MG/ML 4ML SYRINGE IV PRN (17:48)
[2021-11-13] VITALS (56 sets, daily range): BP systolic 124–169; BP diastolic 59–90
[2021-11-13] MEDS: NOREPINEPHRINE 8 MG/250ML KIT 250 ML IV SCH (04:00)
[2021-11-13 04:03] LABS: Eosinophils # (auto) 0 10 ^3/uL (0-0.8); Eosinophils % (auto) 0.1 % (0.0-7.0); Hemoglobin 7.9 g/dL (13.5-17.5); Mean Corpuscular Volume 89.1 fL (80.0-100.0); Monocytes # (auto) 0.4 10 ^3/uL (0-1.3)
[2021-11-13 04:09] LABS: Basophils # (auto) 0.1 10 ^3/uL (0-0.2); Basophils % (auto) 0.7 % (0.0-2.0); Lymphocytes # (auto) 0.7 10 ^3/uL (0.4-5.4); Lymphocytes % (auto) 3.7 % (10.0-50.0); Mean Corpuscular Hemoglobin 29.2 pg (28.0-32.0); Mean Corpuscular Hgb Conc. 32.8 g/dL (32.0-36.0); Neutrophils % (auto) 93.5 % (37.0-80.0); Red Cell Distribution Width 14.4 % (11.8-14.3); White Blood Cell 19.3 10^3/uL (4.4-10.8)
[2021-11-13] MEDS: MEROPENEM 1GM IVPB 100 ML IV SCH ×3 (04:16→19:19)
[2021-11-13 04:28] LABS: Calcium 7.7 mg/dL (8.5-10.1)
[2021-11-13] MEDS: FREE WATER GT SCH ×2 (05:59→13:40)
[2021-11-13] MEDS: InsuLIN REG 1unit/0.01ml Soln (100units/ml) SC SCH ×5 (05:59→23:46)
[2021-11-13] MEDS: ACCU-CHEK COMFORT CURVE STRIP VI SCH ×5 (06:00→23:45)
[2021-11-13] MEDS: POTASSIUM EFFERVESENT TAB 25 MEQ GT SCH (10:43)
[2021-11-13] MEDS: LINEZOLID 600MG/300ML 300 ML IV SCH ×2 (10:43→21:53)
[2021-11-13] MEDS: FUROSEMIDE 20 MG/2 ML VIAL IV SCH (10:44)
[2021-11-13] MEDS: SODIUM CHLOR 0.9% PF (SALINE LOCK) 10ML VIAL/SYR IV SCH ×2 (10:44→21:53)
[2021-11-13] MEDS: PANTOPRAZOLE 40 MG/10 ML VIAL INJ IV SCH ×2 (10:44→21:54)
[2021-11-13] MEDS: DIGOXIN 0.125 MG TAB PO SCH (10:45)
[2021-11-13] MEDS: METOPROLOL TARTRATE 50 MG TAB PO SCH ×2 (10:45→22:36)
[2021-11-13] MEDS: ENOXAPARIN SOD 30 MG/0.3 ML SYRINGE SC SCH (10:45)
[2021-11-13] MEDS ORDERED: cloNIDine 0.1 mg/24hr 7 DAY PATCH TD ONE (14:45)
[2021-11-13] MEDS: MICAFUNGIN SODIUM 100 MG in SODIUM CHL 0.9% 100 ML IV SCH (18:03)
[2021-11-13] MEDS: LEVALBUTEROL HCL 1.25 MG/3 ML NEB NEB SCH ×2 (18:15→23:58)
[2021-11-13] MEDS: ACETYLCYSTEINE 10 %(100MG/ML) SOL 4ML NEB SCH ×2 (18:16→23:58)
[2021-11-13] MEDS: IPRATROPIUM BROM 0.5 MG/2.5ML INH SOL NEB SCH ×2 (18:16→23:58)
[2021-11-13] MEDS: BUDESONIDE (INHALATION) 0.5 MG/2 ML NEB NEB SCH (22:18)
[2021-11-14] VITALS (30 sets, daily range): BP systolic 125–179; BP diastolic 52–89
[2021-11-14] MEDS: LABETALOL HCL 5 MG/ML 4ML SYRINGE IV PRN ×4 (00:32→22:13)
[2021-11-14 03:30] LABS: Hemoglobin 8.6 g/dL (13.5-17.5); Mean Corpuscular Hemoglobin 29.8 pg (28.0-32.0); Mean Corpuscular Hgb Conc. 33.3 g/dL (32.0-36.0); Mean Corpuscular Volume 89.7 fL (80.0-100.0); Red Cell Distribution Width 14.3 % (11.8-14.3)
[2021-11-14 03:48] LABS: Basophils % (manual) 0 (0.0-2.0); Blast Cells 0; Eosinophils % (manual) 0 (0-7); Metamyelocytes % 0; Myelocytes % 0; Promyelocytes % 0; Reactive Lymphocytes 0
[2021-11-14 03:50] LABS: BUN/Creatinine Ratio 20.2; Calcium 7.7 mg/dL (8.5-10.1); Potassium 3.8 mmol/L (3.5-5.1)
[2021-11-14] MEDS: NOREPINEPHRINE 8 MG/250ML KIT 250 ML IV SCH (04:00)
[2021-11-14] MEDS: MEROPENEM 1GM IVPB 100 ML IV SCH ×3 (04:24→20:04)
[2021-11-14 05:00] LABS: Band Neutrophils % (manual) 5; Lymphocytes % (manual) 9 (10.0-50.0); Monocytes % (manual) 4 (0-12)
[2021-11-14] MEDS: ACCU-CHEK COMFORT CURVE STRIP VI SCH ×3 (05:58→17:21)
[2021-11-14] MEDS: InsuLIN REG 1unit/0.01ml Soln (100units/ml) SC SCH ×3 (05:59→17:20)
[2021-11-14] MEDS ORDERED: LORazepam 2MG/ML-1ML VIAL IV PRN (06:45)
[2021-11-14] MEDS: IPRATROPIUM BROM 0.5 MG/2.5ML INH SOL NEB SCH ×3 (07:00→18:35)
[2021-11-14] MEDS: LEVALBUTEROL HCL 1.25 MG/3 ML NEB NEB SCH ×3 (07:00→18:00)
[2021-11-14] MEDS: ACETYLCYSTEINE 10 %(100MG/ML) SOL 4ML NEB SCH ×3 (07:00→18:34)
[2021-11-14] MEDS: BUDESONIDE (INHALATION) 0.5 MG/2 ML NEB NEB SCH ×2 (07:00→18:35)
[2021-11-14] MEDS: LINEZOLID 600MG/300ML 300 ML IV SCH ×2 (09:30→21:22)
[2021-11-14] MEDS: PANTOPRAZOLE 40 MG/10 ML VIAL INJ IV SCH ×2 (10:00→22:10)
[2021-11-14] MEDS: DIGOXIN 0.125 MG TAB PO SCH (10:00)
[2021-11-14] MEDS: SODIUM CHLOR 0.9% PF (SALINE LOCK) 10ML VIAL/SYR IV SCH ×2 (10:00→22:10)
[2021-11-14] MEDS: ENOXAPARIN SOD 30 MG/0.3 ML SYRINGE SC SCH (10:00)
[2021-11-14] MEDS: FUROSEMIDE 20 MG/2 ML VIAL IV SCH (10:00)
[2021-11-14] MEDS: METOPROLOL TARTRATE 50 MG TAB PO SCH ×2 (10:00→22:12)
[2021-11-14] MEDS: POTASSIUM EFFERVESENT TAB 25 MEQ GT SCH (10:00)
[2021-11-14] MEDS ORDERED: FUROSEMIDE 20 MG/2 ML VIAL IV ONE (15:00)
[2021-11-14] MEDS ORDERED: Jevity 1.2 Cal/Fiber 1 Liter GT SCH (15:00)
[2021-11-14] MEDS: MICAFUNGIN SODIUM 100 MG in SODIUM CHL 0.9% 100 ML IV SCH (16:50)
[2021-11-15] VITALS (36 sets, daily range): BP systolic 99–182; BP diastolic 35–81
[2021-11-15] MEDS: InsuLIN REG 1unit/0.01ml Soln (100units/ml) SC SCH ×4 (00:30→18:00)
[2021-11-15] MEDS: ACETYLCYSTEINE 10 %(100MG/ML) SOL 4ML NEB SCH ×4 (02:26→18:21)
[2021-11-15] MEDS: IPRATROPIUM BROM 0.5 MG/2.5ML INH SOL NEB SCH ×4 (02:27→18:20)
[2021-11-15] MEDS: LEVALBUTEROL HCL 1.25 MG/3 ML NEB NEB SCH ×4 (02:28→18:20)
[2021-11-15] MEDS: LABETALOL HCL 5 MG/ML 4ML SYRINGE IV PRN ×2 (03:15→11:39)
[2021-11-15] MEDS: MEROPENEM 1GM IVPB 100 ML IV SCH ×3 (04:00→20:37)
[2021-11-15 05:02] LABS: Basophils # (auto) 0.1 10 ^3/uL (0-0.2); Eosinophils # (auto) 0 10 ^3/uL (0-0.8); Red Cell Distribution Width 14.3 % (11.8-14.3)
[2021-11-15 05:05] LABS: Basophils % (auto) 0.3 % (0.0-2.0); Hematocrit 23.3 % (41.0-53.0); Lymphocytes # (auto) 0.7 10 ^3/uL (0.4-5.4); Lymphocytes % (auto) 3.3 % (10.0-50.0); Mean Corpuscular Hemoglobin 30.5 pg (28.0-32.0); Mean Corpuscular Hgb Conc. 34.1 g/dL (32.0-36.0); Mean Corpuscular Volume 89.3 fL (80.0-100.0); Monocytes % (auto) 4.7 % (0.0-12.0); Neutrophils # (auto) 18.7 10 ^3/uL (1.6-8.6); Neutrophils % (auto) 91.7 % (37.0-80.0); Red Blood Cells 2.62 10^6/uL (4.5-5.90); White Blood Cell 20.4 10^3/uL (4.4-10.8)
[2021-11-15] MEDS: ACCU-CHEK COMFORT CURVE STRIP VI SCH ×4 (06:00→18:03)
[2021-11-15] MEDS: BUDESONIDE (INHALATION) 0.5 MG/2 ML NEB NEB SCH ×2 (06:21→22:18)
[2021-11-15 07:17] LABS: BUN/Creatinine Ratio 20.6; Calcium 7.8 mg/dL (8.5-10.1); Potassium 3.8 mmol/L (3.5-5.1)
[2021-11-15 07:18] LABS: Albumin 1.7 g/dL (3.4-5.0); Bilirubin, Total 0.7 mg/dL (0.2-1.0); Magnesium 2.9 mg/dL (1.6-2.6); Total Protein 5.5 g/dL (6.4-8.2)
[2021-11-15] MEDS: NOREPINEPHRINE 8 MG/250ML KIT 250 ML IV SCH (08:25)
[2021-11-15] MEDS: LINEZOLID 600MG/300ML 300 ML IV SCH ×2 (10:12→22:08)
[2021-11-15] MEDS: POTASSIUM EFFERVESENT TAB 25 MEQ GT SCH (10:13)
[2021-11-15] MEDS: SODIUM CHLOR 0.9% PF (SALINE LOCK) 10ML VIAL/SYR IV SCH ×2 (10:14→22:08)
[2021-11-15] MEDS: FUROSEMIDE 20 MG/2 ML VIAL IV SCH ×2 (10:14→22:11)
[2021-11-15] MEDS: PANTOPRAZOLE 40 MG/10 ML VIAL INJ IV SCH ×2 (10:14→22:11)
[2021-11-15] MEDS: ENOXAPARIN SOD 30 MG/0.3 ML SYRINGE SC SCH (10:20)
[2021-11-15] MEDS: DIGOXIN 0.125 MG TAB PO SCH (10:20)
[2021-11-15] MEDS ORDERED: FUROSEMIDE 40 MG/4 ML VIAL ONE (15:13)
[2021-11-15] MEDS ORDERED: POTASSIUM EFFERVESENT TAB 25 MEQ GT ONE (15:15)
[2021-11-15] MEDS ORDERED: FUROSEMIDE 40 MG/4 ML VIAL IV ONE (15:15)
[2021-11-15] MEDS: MICAFUNGIN SODIUM 100 MG in SODIUM CHL 0.9% 100 ML IV SCH (17:00)
[2021-11-16] VITALS (28 sets, daily range): BP systolic 111–165; BP diastolic 43–66
[2021-11-16] MEDS: ACCU-CHEK COMFORT CURVE STRIP VI SCH ×5 (00:03→23:30)
[2021-11-16] MEDS: InsuLIN REG 1unit/0.01ml Soln (100units/ml) SC SCH ×5 (00:04→23:26)
[2021-11-16] MEDS: LEVALBUTEROL HCL 1.25 MG/3 ML NEB NEB SCH ×3 (01:50→19:32)
[2021-11-16] MEDS: ACETYLCYSTEINE 10 %(100MG/ML) SOL 4ML NEB SCH ×4 (01:50→19:32)
[2021-11-16] MEDS: IPRATROPIUM BROM 0.5 MG/2.5ML INH SOL NEB SCH ×4 (01:50→19:32)
[2021-11-16] MEDS: NOREPINEPHRINE 8 MG/250ML KIT 250 ML IV SCH (04:00)
[2021-11-16 04:28] LABS: Basophils # (auto) 0.1 10 ^3/uL (0-0.2); Basophils % (auto) 0.3 % (0.0-2.0); Eosinophils # (auto) 0 10 ^3/uL (0-0.8); Hematocrit 25.8 % (41.0-53.0); Hemoglobin 8.4 g/dL (13.5-17.5); Lymphocytes # (auto) 1.4 10 ^3/uL (0.4-5.4); Lymphocytes % (auto) 5.2 % (10.0-50.0); Mean Corpuscular Hemoglobin 29.3 pg (28.0-32.0); Mean Corpuscular Hgb Conc. 32.5 g/dL (32.0-36.0); Mean Corpuscular Volume 90.4 fL (80.0-100.0); Monocytes % (auto) 3.7 % (0.0-12.0); Neutrophils # (auto) 24.7 10 ^3/uL (1.6-8.6); Neutrophils % (auto) 90.8 % (37.0-80.0); Nucleated Red Blood Cells % 0.1 %; Red Blood Cells 2.85 10^6/uL (4.5-5.90); White Blood Cell 27.2 10^3/uL (4.4-10.8)
[2021-11-16 04:54] LABS: Potassium 3.7 mmol/L (3.5-5.1)
[2021-11-16 05:01] LABS: BUN/Creatinine Ratio 21.7; Calcium 7.9 mg/dL (8.5-10.1)
[2021-11-16] MEDS: MEROPENEM 1GM IVPB 100 ML IV SCH ×2 (05:10→17:00)
[2021-11-16] MEDS: FUROSEMIDE 20 MG/2 ML VIAL IV SCH ×2 (05:11→18:00)
[2021-11-16] MEDS: BUDESONIDE (INHALATION) 0.5 MG/2 ML NEB NEB SCH ×2 (06:00→19:32)
[2021-11-16] MEDS: LINEZOLID 600MG/300ML 300 ML IV SCH ×2 (09:00→20:17)
[2021-11-16] MEDS: ENOXAPARIN SOD 30 MG/0.3 ML SYRINGE SC SCH (10:00)
[2021-11-16] MEDS: POTASSIUM EFFERVESENT TAB 25 MEQ GT SCH (10:00)
[2021-11-16] MEDS: DIGOXIN 0.125 MG TAB PO SCH (10:00)
[2021-11-16] MEDS: SODIUM CHLOR 0.9% PF (SALINE LOCK) 10ML VIAL/SYR IV SCH ×2 (10:00→20:04)
[2021-11-16] MEDS: PANTOPRAZOLE 40 MG/10 ML VIAL INJ IV SCH ×2 (10:00→20:18)
[2021-11-16] MEDS: METOPROLOL TARTRATE 50 MG TAB PO SCH ×2 (10:00→22:34)
[2021-11-16] MEDS ORDERED: FUROSEMIDE 40 MG/4 ML VIAL IV ONE (14:30)
[2021-11-16] MEDS: MICAFUNGIN SODIUM 100 MG in SODIUM CHL 0.9% 100 ML IV SCH (17:00)
[2021-11-17] VITALS (30 sets, daily range): BP systolic 122–174; BP diastolic 8–116
[2021-11-17] MEDS: LEVALBUTEROL HCL 1.25 MG/3 ML NEB NEB SCH ×4 (01:06→18:00)
[2021-11-17] MEDS: IPRATROPIUM BROM 0.5 MG/2.5ML INH SOL NEB SCH ×4 (01:06→18:00)
[2021-11-17] MEDS: ACETYLCYSTEINE 10 %(100MG/ML) SOL 4ML NEB SCH ×4 (01:06→18:44)
[2021-11-17] MEDS: NOREPINEPHRINE 8 MG/250ML KIT 250 ML IV SCH (04:00)
[2021-11-17] MEDS: MEROPENEM 1GM IVPB 100 ML IV SCH ×2 (04:11→17:30)
[2021-11-17 04:46] LABS: Eosinophils # (auto) 0 10 ^3/uL (0-0.8); White Blood Cell 20.4 10^3/uL (4.4-10.8)
[2021-11-17 05:01] LABS: Calcium 7.7 mg/dL (8.5-10.1); Potassium 3.8 mmol/L (3.5-5.1)
[2021-11-17 05:03] LABS: BUN/Creatinine Ratio 31.9
[2021-11-17 05:21] LABS: Red Cell Distribution Width 14.8 % (11.8-14.3)
[2021-11-17 05:23] LABS: Basophils # (auto) 0 10 ^3/uL (0-0.2); Basophils % (auto) 0.2 % (0.0-2.0); Hematocrit 24.6 % (41.0-53.0); Lymphocytes # (auto) 0.6 10 ^3/uL (0.4-5.4); Lymphocytes % (auto) 3.1 % (10.0-50.0); Mean Corpuscular Hemoglobin 29.2 pg (28.0-32.0); Mean Corpuscular Hgb Conc. 32.4 g/dL (32.0-36.0); Monocytes # (auto) 0.6 10 ^3/uL (0-1.3); Monocytes % (auto) 3.2 % (0.0-12.0); Neutrophils # (auto) 19.1 10 ^3/uL (1.6-8.6); Neutrophils % (auto) 93.5 % (37.0-80.0); Nucleated Red Blood Cells % 0.3 %; Red Blood Cells 2.73 10^6/uL (4.5-5.90)
[2021-11-17] MEDS: ACCU-CHEK COMFORT CURVE STRIP VI SCH ×3 (05:24→18:38)
[2021-11-17] MEDS: FUROSEMIDE 20 MG/2 ML VIAL IV SCH ×2 (05:24→18:54)
[2021-11-17] MEDS: InsuLIN REG 1unit/0.01ml Soln (100units/ml) SC SCH ×3 (05:24→18:39)
[2021-11-17] MEDS: BUDESONIDE (INHALATION) 0.5 MG/2 ML NEB NEB SCH ×2 (06:10→18:44)
[2021-11-17] MEDS: LINEZOLID 600MG/300ML 300 ML IV SCH ×2 (09:09→21:30)
[2021-11-17] MEDS: SODIUM CHLOR 0.9% PF (SALINE LOCK) 10ML VIAL/SYR IV SCH ×2 (09:11→22:13)
[2021-11-17] MEDS: PANTOPRAZOLE 40 MG/10 ML VIAL INJ IV SCH ×2 (09:11→22:13)
[2021-11-17] MEDS: POTASSIUM EFFERVESENT TAB 25 MEQ GT SCH (09:11)
[2021-11-17] MEDS: DIGOXIN 0.125 MG TAB PO SCH (09:12)
[2021-11-17] MEDS: METOPROLOL TARTRATE 50 MG TAB PO SCH ×2 (09:12→22:14)
[2021-11-17] MEDS: ENOXAPARIN SOD 30 MG/0.3 ML SYRINGE SC SCH (09:13)
[2021-11-18] VITALS (48 sets, daily range): BP systolic 97–164; BP diastolic 36–71
[2021-11-18] MEDS: MICAFUNGIN SODIUM 100 MG in SODIUM CHL 0.9% 100 ML IV SCH ×2 (00:11→23:19)
[2021-11-18] MEDS: MEROPENEM 1GM IVPB 100 ML IV SCH ×2 (01:30→10:16)
[2021-11-18] MEDS: ACETYLCYSTEINE 10 %(100MG/ML) SOL 4ML NEB SCH ×4 (02:27→18:42)
[2021-11-18] MEDS: NOREPINEPHRINE 8 MG/250ML KIT 250 ML IV SCH (04:00)
[2021-11-18 04:51] LABS: Basophils # (auto) 0.1 10 ^3/uL (0-0.2); Basophils % (auto) 0.8 % (0.0-2.0); Eosinophils # (auto) 0.1 10 ^3/uL (0-0.8); Hemoglobin 7.8 g/dL (13.5-17.5); Lymphocytes # (auto) 0.8 10 ^3/uL (0.4-5.4); Monocytes # (auto) 0.6 10 ^3/uL (0-1.3)
[2021-11-18 04:54] LABS: Eosinophils % (auto) 0.7 % (0.0-7.0); Hematocrit 23.6 % (41.0-53.0); Lymphocytes % (auto) 5.1 % (10.0-50.0); Mean Corpuscular Hemoglobin 29.7 pg (28.0-32.0); Mean Corpuscular Hgb Conc. 32.9 g/dL (32.0-36.0); Mean Corpuscular Volume 90.2 fL (80.0-100.0); Monocytes % (auto) 3.6 % (0.0-12.0); Neutrophils # (auto) 14.7 10 ^3/uL (1.6-8.6); Neutrophils % (auto) 89.8 % (37.0-80.0); Nucleated Red Blood Cells % 0.6 %; Red Blood Cells 2.62 10^6/uL (4.5-5.90); Red Cell Distribution Width 14.7 % (11.8-14.3); White Blood Cell 16.4 10^3/uL (4.4-10.8)
[2021-11-18 05:16] LABS: Albumin 1.5 g/dL (3.4-5.0); Calcium 7.9 mg/dL (8.5-10.1); Potassium 3.6 mmol/L (3.5-5.1)
[2021-11-18 05:19] LABS: BUN/Creatinine Ratio 31.5
[2021-11-18 05:34] LABS: Bilirubin, Total 0.6 mg/dL (0.2-1.0); Total Protein 5.2 g/dL (6.4-8.2)
[2021-11-18] MEDS: ACCU-CHEK COMFORT CURVE STRIP VI SCH ×4 (05:53→23:47)
[2021-11-18] MEDS: FUROSEMIDE 20 MG/2 ML VIAL IV SCH (05:53)
[2021-11-18] MEDS: InsuLIN REG 1unit/0.01ml Soln (100units/ml) SC SCH ×3 (06:19→12:10)
[2021-11-18] MEDS: POTASSIUM EFFERVESENT TAB 25 MEQ GT SCH (10:17)
[2021-11-18] MEDS: LINEZOLID 600MG/300ML 300 ML IV SCH ×2 (10:17→21:12)
[2021-11-18] MEDS: SODIUM CHLOR 0.9% PF (SALINE LOCK) 10ML VIAL/SYR IV SCH ×2 (10:17→21:14)
[2021-11-18] MEDS: PANTOPRAZOLE 40 MG/10 ML VIAL INJ IV SCH ×2 (10:17→21:15)
[2021-11-18] MEDS: DIGOXIN 0.125 MG TAB PO SCH (10:18)
[2021-11-18] MEDS: METOPROLOL TARTRATE 50 MG TAB PO SCH ×2 (10:22→21:16)
[2021-11-18] MEDS: ENOXAPARIN SOD 30 MG/0.3 ML SYRINGE SC SCH (10:22)
[2021-11-18] MEDS: IPRATROPIUM BROM 0.5 MG/2.5ML INH SOL NEB SCH ×3 (12:50→18:42)
[2021-11-18] MEDS: LEVALBUTEROL HCL 1.25 MG/3 ML NEB NEB SCH ×4 (12:50→18:42)
[2021-11-18] MEDS: BUDESONIDE (INHALATION) 0.5 MG/2 ML NEB NEB SCH ×2 (12:50→18:43)
[2021-11-19] VITALS (53 sets, daily range): BP systolic 106–151; BP diastolic 42–57
[2021-11-19] MEDS: MEROPENEM 1GM IVPB 100 ML IV SCH ×3 (01:00→17:13)
[2021-11-19] MEDS: ACETYLCYSTEINE 10 %(100MG/ML) SOL 4ML NEB SCH ×4 (02:06→19:02)
[2021-11-19] MEDS: IPRATROPIUM BROM 0.5 MG/2.5ML INH SOL NEB SCH ×4 (02:07→19:02)
[2021-11-19] MEDS: LEVALBUTEROL HCL 1.25 MG/3 ML NEB NEB SCH ×4 (02:07→19:02)
[2021-11-19] MEDS: NOREPINEPHRINE 8 MG/250ML KIT 250 ML IV SCH (04:47)
[2021-11-19] MEDS: FUROSEMIDE 20 MG/2 ML VIAL IV SCH ×2 (05:30→17:13)
[2021-11-19] MEDS: InsuLIN REG 1unit/0.01ml Soln (100units/ml) SC SCH ×4 (05:42→18:00)
[2021-11-19] MEDS: ACCU-CHEK COMFORT CURVE STRIP VI SCH ×3 (05:42→18:24)
[2021-11-19] MEDS: LINEZOLID 600MG/300ML 300 ML IV SCH ×2 (10:20→21:06)
[2021-11-19] MEDS: PANTOPRAZOLE 40 MG/10 ML VIAL INJ IV SCH ×2 (10:21→22:28)
[2021-11-19] MEDS: POTASSIUM EFFERVESENT TAB 25 MEQ GT SCH (10:21)
[2021-11-19] MEDS: METOPROLOL TARTRATE 50 MG TAB PO SCH ×2 (10:22→22:29)
[2021-11-19] MEDS: DIGOXIN 0.125 MG TAB PO SCH (10:22)
[2021-11-19] MEDS: SODIUM CHLOR 0.9% PF (SALINE LOCK) 10ML VIAL/SYR IV SCH ×2 (10:22→22:29)
[2021-11-19] MEDS: ENOXAPARIN SOD 30 MG/0.3 ML SYRINGE SC SCH (10:22)
[2021-11-19] MEDS: BUDESONIDE (INHALATION) 0.5 MG/2 ML NEB NEB SCH ×3 (14:53→22:29)
[2021-11-19] MEDS: MICAFUNGIN SODIUM 100 MG in SODIUM CHL 0.9% 100 ML IV SCH (23:37)
[2021-11-20] VITALS (44 sets, daily range): BP systolic 119–168; BP diastolic 40–81
[2021-11-20] MEDS: ACCU-CHEK COMFORT CURVE STRIP VI SCH ×4 (00:27→18:00)
[2021-11-20] MEDS: InsuLIN REG 1unit/0.01ml Soln (100units/ml) SC SCH ×4 (00:27→17:56)
[2021-11-20] MEDS: ACETYLCYSTEINE 10 %(100MG/ML) SOL 4ML NEB SCH ×4 (01:03→23:38)
[2021-11-20] MEDS: IPRATROPIUM BROM 0.5 MG/2.5ML INH SOL NEB SCH ×3 (01:03→23:38)
[2021-11-20] MEDS: LEVALBUTEROL HCL 1.25 MG/3 ML NEB NEB SCH ×4 (01:03→23:38)
[2021-11-20] MEDS: MEROPENEM 1GM IVPB 100 ML IV SCH ×3 (02:08→17:54)
[2021-11-20] MEDS: FUROSEMIDE 20 MG/2 ML VIAL IV SCH ×2 (06:30→17:55)
[2021-11-20] MEDS: NOREPINEPHRINE 8 MG/250ML KIT 250 ML IV SCH (08:00)
[2021-11-20] MEDS: POTASSIUM EFFERVESENT TAB 25 MEQ GT SCH (08:29)
[2021-11-20] MEDS: PANTOPRAZOLE 40 MG/10 ML VIAL INJ IV SCH ×2 (08:36→22:01)
[2021-11-20] MEDS: DIGOXIN 0.125 MG TAB PO SCH (08:37)
[2021-11-20] MEDS: METOPROLOL TARTRATE 50 MG TAB PO SCH ×2 (08:38→22:02)
[2021-11-20] MEDS: ENOXAPARIN SOD 30 MG/0.3 ML SYRINGE SC SCH (08:38)
[2021-11-20] MEDS: SODIUM CHLOR 0.9% PF (SALINE LOCK) 10ML VIAL/SYR IV SCH ×2 (08:39→22:01)
[2021-11-20] MEDS: BUDESONIDE (INHALATION) 0.5 MG/2 ML NEB NEB SCH ×2 (10:46→18:31)
[2021-11-20] MEDS: LINEZOLID 600MG/300ML 300 ML IV SCH ×2 (12:00→21:27)
[2021-11-20] MEDS ORDERED: cloNIDine 0.1 mg/24hr 7 DAY PATCH TD SCH (15:00)
[2021-11-20] MEDS: MICAFUNGIN SODIUM 100 MG in SODIUM CHL 0.9% 100 ML IV SCH (23:10)
[2021-11-21] VITALS (43 sets, daily range): BP systolic 95–146; BP diastolic 42–81
[2021-11-21] MEDS: MEROPENEM 1GM IVPB 100 ML IV SCH ×2 (01:00→08:46)
[2021-11-21] MEDS: NOREPINEPHRINE 8 MG/250ML KIT 250 ML IV SCH (04:00)
[2021-11-21] MEDS: InsuLIN REG 1unit/0.01ml Soln (100units/ml) SC SCH ×3 (06:00→12:00)
[2021-11-21] MEDS: FUROSEMIDE 20 MG/2 ML VIAL IV SCH (06:00)
[2021-11-21] MEDS: IPRATROPIUM BROM 0.5 MG/2.5ML INH SOL NEB SCH ×2 (06:00→12:00)
[2021-11-21] MEDS: ACCU-CHEK COMFORT CURVE STRIP VI SCH ×3 (06:01→12:00)
[2021-11-21] MEDS: BUDESONIDE (INHALATION) 0.5 MG/2 ML NEB NEB SCH (06:57)
[2021-11-21] MEDS: LEVALBUTEROL HCL 1.25 MG/3 ML NEB NEB SCH ×2 (07:46→15:07)
[2021-11-21] MEDS: ACETYLCYSTEINE 10 %(100MG/ML) SOL 4ML NEB SCH ×2 (07:46→15:07)
[2021-11-21] MEDS: POTASSIUM EFFERVESENT TAB 25 MEQ GT SCH (08:46)
[2021-11-21] MEDS: SODIUM CHLOR 0.9% PF (SALINE LOCK) 10ML VIAL/SYR IV SCH ×2 (09:39→22:00)
[2021-11-21] MEDS: PANTOPRAZOLE 40 MG/10 ML VIAL INJ IV SCH (09:39)
[2021-11-21] MEDS: DIGOXIN 0.125 MG TAB PO SCH (09:40)
[2021-11-21] MEDS: METOPROLOL TARTRATE 50 MG TAB PO SCH (09:40)
[2021-11-21] MEDS: ENOXAPARIN SOD 30 MG/0.3 ML SYRINGE SC SCH (09:41)
[2021-11-21] MEDS: LINEZOLID 600MG/300ML 300 ML IV SCH (12:00)
[2021-11-21] MEDS: MORPHINE SULFATE INJECTION 2 MG/ML SYRG IV PRN (22:45)
[2021-11-21] MEDS: LORazepam 2MG/ML-1ML VIAL IV PRN (22:45)
[2021-11-22] MEDS: LORazepam 2MG/ML-1ML VIAL IV PRN (01:51)
[2021-11-22] MEDS: MORPHINE SULFATE INJECTION 2 MG/ML SYRG IV PRN (01:52)
== END 2021-11-22 02:30 | DRG 853 ==
LOC: ER 12:31 → TELE 15:52 → TELE-EAST 10-03 03:20 → TELE-E-ADS 10-06 19:00 → ICU WEST 10-12 10:00 → TELE-EAST 11-21 23:04
PROVIDERS: ADMIT Hospitalist; ATTEND Internal Medicine
PROC: XW033E5 Introduction of Remdesivir Anti-infective into Peripheral Vein, Percutaneous Approach, New Technology Group 5 (ICD-10-PCS; 2021-10-08)
PROC: 5A1955Z Respiratory Ventilation, Greater than 96 Consecutive Hours (ICD-10-PCS; 2021-10-12)
PROC: 0BH17EZ Insertion of Endotracheal Airway into Trachea, Via Natural or Artificial Opening (ICD-10-PCS; 2021-10-12)
PROC: 5A09557 Assistance with Respiratory Ventilation, Greater than 96 Consecutive Hours, Continuous Positive Airway Pressure (ICD-10-PCS; 2021-10-15)
PROC: 06HY33Z Insertion of Infusion Device into Lower Vein, Percutaneous Approach (ICD-10-PCS; 2021-10-16)
PROC: B54BZZA Ultrasonography of Right Lower Extremity Veins, Guidance (ICD-10-PCS; 2021-10-16)
PROC: 02H63JZ Insertion of Pacemaker Lead into Right Atrium, Percutaneous Approach (ICD-10-PCS; principal; 2021-10-20)
PROC: 02HK3JZ Insertion of Pacemaker Lead into Right Ventricle, Percutaneous Approach (ICD-10-PCS; 2021-10-20)
PROC: 0JH606Z Insertion of Pacemaker, Dual Chamber into Chest Subcutaneous Tissue and Fascia, Open Approach (ICD-10-PCS; 2021-10-20)
DX: A41.89 Other specified sepsis (principal); U07.1 COVID-19; J12.82 Pneumonia due to coronavirus disease 2019; J96.01 Acute respiratory failure with hypoxia; I50.31 Acute diastolic (congestive) heart failure; G92.8 Other toxic encephalopathy; R65.21 Severe sepsis with septic shock; I48.19 Other persistent atrial fibrillation; E87.1 Hypo-osmolality and hyponatremia; E44.0 Moderate protein-calorie malnutrition; E87.0 Hyperosmolality and hypernatremia; N17.9 Acute kidney failure, unspecified; I13.0 Hypertensive heart and chronic kidney disease with heart failure and stage 1 through stage 4 chronic kidney disease, or unspecified chronic kidney disease; T79.7XXA Traumatic subcutaneous emphysema, initial encounter; I25.5 Ischemic cardiomyopathy; I49.5 Sick sinus syndrome; N40.1 Benign prostatic hyperplasia with lower urinary tract symptoms; K29.70 Gastritis, unspecified, without bleeding; K21.9 Gastro-esophageal reflux disease without esophagitis; I25.10 Atherosclerotic heart disease of native coronary artery without angina pectoris; G25.81 Restless legs syndrome; F41.9 Anxiety disorder, unspecified; F32.9 Major depressive disorder, single episode, unspecified; I50.82 Biventricular heart failure; E78.5 Hyperlipidemia, unspecified; N18.32 Chronic kidney disease, stage 3b; I48.91 Unspecified atrial fibrillation; Z86.73 Personal history of transient ischemic attack (TIA), and cerebral infarction without residual deficits; Z79.01 Long term (current) use of anticoagulants; Z99.2 Dependence on renal dialysis; Z68.23 Body mass index [BMI] 23.0-23.9, adult; Y93.89 Activity, other specified; Y92.89 Other specified places as the place of occurrence of the external cause; Y99.8 Other external cause status
CPT/HCPCS: 33208; 36415; 36569; 36600; 70450; 71045; 71250; 76775; 80048; 80053; 80061; 80074; 80162; 80202; 80307; 81001; 82040; 82570; 82728; 82805; 82962; 83036; 83615; 83735; 83880; 83930; 83935; 84100; 84132; 84156; 84300; 84443; 84478; 84484; 84550; 85007; 85025; 85027; 85379; 85610; 85730; 86141; 86160; 87040; 87070; 87081; 87086; 87205; 87278; 87426; 90935; 93005; 93306; 93886; 94002; 94003; 94640; 94660; 96361; 96365; 97163; A4618; C9113; G0378; J0330; J0696; J1100; J1642; J1815; J1956; J2185; J2248; J2250; J2405; J2704; J3490; J7060; P9047